=== PATIENT | male | born 1955 | race Caucasian/White ===

== ENCOUNTER 2020-10-14 08:15 | Outpatient (NON) | payer MEDICARE, SELFPAY ==
[2020-10-15 18:23] LABS: SARS-CoV-2 RNA PCR Positive
== END 2020-10-14 08:16 ==
PROVIDERS: Visit Provider Family Medicine
DX: U07.1 COVID-19 (principal)
CPT/HCPCS: 87635; C9803; U0003

== ENCOUNTER 2022-01-28 10:53 | Outpatient (CLI) | payer MEDICARE, SELFPAY ==
--- NOTE | ~2022-01-28 | XR_ITS ---
XR chest 2V DATE: 01/28/2022 11:11 INDICATION: Chest pain TECHNIQUE: PA and lateral views COMPARISON: None FINDINGS: Slight heart size is within normal range. Is aortic calcification and mild tortuosity. No h ilar or mediastinal enlargement. No pulmonary infiltrate or consolidation, pleural effusion or pulmonary vascular congestion or pneumo thorax. Degenerative spurring of the thoracic spine. IMPRESSION: No active cardiac pulmonary disease Aortic atherosclerosis Degenerative spurring of the thoracic spine Reviewed, dictated and finalized at location A. ERT PIANIST
== END 2022-01-28 10:54 | disposition home or self-care (01) ==
LOC: ANHIMG 10:59
PROVIDERS: PCP Family Medicine; Visit Provider Internal Medicine Cardiovascular Disease
DX: R07.9 Chest pain, unspecified (principal); R06.02 Shortness of breath; R07.89 Other chest pain; R94.31 Abnormal electrocardiogram [ECG] [EKG]; I70.0 Atherosclerosis of aorta; M77.8 Other enthesopathies, not elsewhere classified
CPT/HCPCS: 71046

== ENCOUNTER 2022-09-06 08:30 | Outpatient (RCR) | payer MEDICARE, SELFPAY ==
[2022-06-15 08:44] VITALS: BP 174/80; PULSE 78; O2SAT 97
[2022-06-15 09:21] VITALS: PULSE 75
== END 2022-09-06 10:29 | disposition home or self-care (01) ==
LOC: ANHCPREHAB 08:30
PROVIDERS: PCP Family Medicine; Visit Provider Internal Medicine Cardiovascular Disease
DX: Z95.1 Presence of aortocoronary bypass graft (principal)
CPT/HCPCS: 93798

== ENCOUNTER 2023-02-03 12:41 | Outpatient (NON) | payer MEDICARE, SELFPAY | END 2023-02-03 12:42 | disposition home or self-care (01) | LOC: ANHLAB 02-04 12:43 | PROVIDERS: PCP Family Medicine; Visit Provider Nurse Practitioner | DX: L82.1 Other seborrheic keratosis (principal) | CPT/HCPCS: 88305 ==

== ENCOUNTER 2023-02-28 13:48 | Outpatient (NON) | payer MEDICARE, SELFPAY | END 2023-02-28 13:49 | disposition home or self-care (01) | LOC: ANHLAB 13:48 | PROVIDERS: PCP Family Medicine; Visit Provider Nurse Practitioner | DX: C44.311 Basal cell carcinoma of skin of nose (principal) | CPT/HCPCS: 88305; 88331 ==

== ENCOUNTER 2023-05-12 08:20 | Outpatient (CLI) | payer MEDICARE, SELFPAY ==
--- NOTE | ~2023-05-12 | US_ITS ---
US art doppler w press LE BI INDICATION: Peripheral vascular disease. TECHNIQUE: Segmental pressures and plethysmographic and Doppler waveforms of the brachial and lower e xtremity arteries were obtained. COMPARISON: None. FINDINGS: Right and left brachial artery pressures of 151 mm Hg and 137 mm Hg, respectively, are concordant (no rmal difference <= 30 mmHg). The right ankle-brachial index (SHANEKA) is 0.64 (normal >= 0.9-1.0). The right great toe-brachial index (TBI) is 0.34 (normal >= 0.60). The left SHANEKA is 0.56. The left TBI is 0.26. IMPRESSION: 1. Diminished bilateral ankle and toe brachial indices, consistent with moderate peripheral arterial disease. Reviewed, dictated and finalized at location [] IMPRESSION: 1. Diminished bilateral ankle and toe brachial indices, consistent with moderat e peripheral arterial disease.
== END 2023-05-12 08:21 | disposition home or self-care (01) ==
PROVIDERS: PCP Family Medicine; Visit Provider Family Medicine
DX: I73.9 Peripheral vascular disease, unspecified (principal)
CPT/HCPCS: 93923

== ENCOUNTER 2025-06-15 15:37 | Emergency (ER) | payer MEDICARE, SELFPAY ==
--- OUTSIDE RECORDS SUMMARY | 2025-06-15 15:39 | XMS_ITS | Clinical Summary ---
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
--- OUTSIDE RECORDS SUMMARY | 2025-06-15 15:39 | XMS_ITS | Encounter Summary ---
Author Organization [facility] Address 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
--- OUTSIDE RECORDS SUMMARY | 2025-06-15 15:39 | XMS_ITS | Continuity of Care Document ---
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 Role Phone Moses Ruiz MD Unavailable Unavailable Allergies, Adverse Reactions, Alerts Substance Reaction Status Criticality No Known Allergies Active No Inform ation Medications Medication Instructions Dosage Effective Dates (start - stop) Status Comments TAMSULOSIN 0.4MG CAPSULES TAKE ONE CAPSULE BY MOUTH EVERY DAY - Active omeprazole 20 mg capsule,delayed release take 1 capsule by oral route every day before a meal 20 MG - Active amlodipine 5 mg tablet TAKE 1 TABLET BY MOUTH EVERY DAY - Active furosemide 80 mg tablet take 1 tablet by oral route every day 80 MG - Active allopurinol 100 mg tablet take 1 tablet by oral route every day 100 MG - Active glimepiride 1 mg tablet take 1 tablet by oral route every day 1 MG - Active Dialyvite 800-Ultra D 0.8 mg-2,000 unit tablet take 1 tablet after dialysis - Active sevelamer carbonate 800 mg tablet take 2 tablet by oral route 3 times every day with food 1600 MG - Active levothyroxine 50 mcg tablet take 1 tablet by oral route every day 50 MCG - Active metoprolol tartrate 25 mg tablet take 1 tablet by oral route 2 times every day 25 MG - Active Toujeo SoloStar 300 unit/mL (1.5 mL) subcutaneous insulin pen inject by subcutaneous route as per insulin protocol 0.00 - Active Procedures Procedure Date Subsequent Hospital Care Subsequent Hospital Care Initial Hospital Care ESRD Srvcs, 4+ Visits; >20 YO 4 ESRD Srvcs, 4+ Visits; >20 YO 3 ESRD Srvcs, 4+ Visits; >20 YO 3 ESRD Srvcs, 4+ Visits; >20 YO 3 ESRD Srvcs, 4+ Visits; >20 YO 3 TRANS CARE MGMT 7 DAY DISCH Initial Hospital Care ESRD Srvcs, 4+ Visits; >20 YO 3 ESRD Srvcs, 4+ Visits; >20 YO 3 ESRD Srvcs, 4+ Visits; >20 YO 3 ESRD Srvcs, 4+ Visits; >20 YO 3 ESRD Srvcs, 4+ Visits; >20 YO 3 ESRD Srvcs, 4+ Visits; >20 YO 3 ESRD Srvcs, 2-3 Visits; >20 YO 23 ESRD Srvcs, 4+ Visits; >20 YO 3 ESRD Srvcs, 4+ Visits; >20 YO 2 ESRD Srvcs, 4+ Visits; >20 YO 2 ESRD Srvcs, 4+ Visits; >20 YO 2 ESRD Srvcs, 4+ Visits; >20 YO 2 ESRD Srvcs, 4+ Visits; >20 YO 2 ESRD Srvcs, 4+ Visits; >20 YO 2 ESRD Srvcs, 4+ Visits; >20 YO 2 ESRD Srvcs, 4+ Visits; >20 YO 2 ESRD Srvcs, 4+ Visits; >20 YO 2 ESRD Srvcs, 4+ Visits; >20 YO 2 ESRD Srvcs, 4+ Visits; >20 YO 2 Initial Hospital Care ESRD Srvcs, 4+ Visits; >20 YO 2 ESRD Srvcs, 4+ Visits; >20 YO 1 ESRD Srvcs, 4+ Visits; >20 YO 1 ESRD Srvcs, 4+ Visits; >20 YO 1 ESRD Srvcs, 4+ Visits; >20 YO 1 ESRD Srvcs, 4+ Visits; >20 YO 1 ESRD Srvcs, 4+ Visits; >20 YO 1 ESRD Srvcs, 4+ Visits; >20 YO 1 ESRD Srvcs, 4+ Visits; >20 YO 1 ESRD Srvcs, 4+ Visits; >20 YO 1 ESRD Srvcs, 4+ Visits; >20 YO 1 ESRD Srvcs, 4+ Visits; >20 YO 1 ESRD Srvcs, 4+ Visits; >20 YO 1 ESRD Srvcs, 4+ Visits; >20 YO 0 ESRD Srvcs, 4+ Visits; >20 YO 0 ESRD Srvcs, 4+ Visits; >20 YO 0 ESRD Srvcs, 2-3 Visits; >20 YO 20 ESRD Srvcs, 4+ Visits; >20 YO 0 Initial Hospital Care Subsequent Hospital Care Subsequent Hospital Care No Charge ESRD Srvcs/PD, Mnthly; >20 YO 0 ESRD Srvcs, 2-3 Visits; >20 YO 20 ESRD Srvcs, 4+ Visits; >20 YO 0 ESRD Srvcs, 4+ Visits; >20 YO 0 ESRD Srvcs, 4+ Visits; >20 YO 0 ESRD Srvcs, 4+ Visits; >20 YO 0 Initial Hospital Care Subsequent Hospital Care ESRD Srvcs, 1 Visit; >20 YO Office/outpatient Visit, Est Office/outpatient Visit, Est Office/outpatient Visit, Est Office/outpatient Visit, Est Office/outpatient Visit, Est Office/outpatient Visit, Est Office/outpatient Visit, Est Office/outpatient Visit, Est Office/outpatient Visit, Est Subsequent Hospital Care Initial Hospital Care Office/outpatient Visit, Est Office Consultation Office/outpatient Visit, Est Office/outpatient Visit, Est Office/outpatient Visit, Est Office/outpatient Visit, Est Office/outpatient Visit, Est Office/outpatient Visit, Est Office/outpatient Visit, Est Office/outpatient Visit, Est Office/outpatient Visit, Est Office/outpatient Visit, Est Office/outpatient Visit, Est Office/outpatient Visit, Est Office/outpatient Visit, Est Office/outpatient Visit, Est Office/outpatient Visit, Est Advance Directives Directive Yes / No Effective Date File Name No Information Encounters Encounter Description Practice Location Reason(s) For Visit Diagnoses Date Provider Providers Copied on Encounter Subsequent [facility], [address] [place] [address], [address], tel:[phone] [facility] Acute kidney failure, unspecifiedChron ic kidney disease, stage 4 (severe)Type 2 diabetes mellitus with diabetic chronic kidney diseaseImmunodef iciency, unspecifiedEncou nter for aftercare following kidney transplantOther recurrent and persistent immunoglobulin A nephropathy Jul- 4 Sara DEUTSCH Moses. [address] [facility], [address], [place], [id number], [place]. tel:[phone] Subsequent [facility], [address] [place] [address], [address], tel:[phone] [facility] Chronic kidney disease, stage 4 (severe)Type 2 diabetes mellitus with diabetic chronic kidney diseaseKidney transplant statusImmunodefi ciency, unspecifiedOther recurrent and persistent immunoglobulin A nephropathyAcute kidney failure, unspecified Sep-2 4 Sara Lopes. [address] [facility], [address] [place] [address], [id number], [place]. tel:[phone] [facility] Care [facility], [address] [place], [address], tel:[phone] [facility] Acute kidney failure, unspecifiedChron ic kidney disease, stage 4 (severe)Type 2 diabetes mellitus with diabetic chronic kidney diseaseImmunodef iciency, unspecifiedEncou nter for aftercare following kidney transplantOther recurrent and persistent immunoglobulin A nephropathy Sep-2 4 Sara Lopes. [address] [place] [address], [address] [place] [address], [id number], [place]. tel:[phone] [facility], [address] [place] [address], [address], tel:[phone] [facility] Other disorders of phosphorus metabolismEnd stage renal diseaseDependenc e on renal dialysis 4 Sara Lopes. [address] [place] [address], [address], [id number], [place]. tel:[phone] [facility], [address] [place] [address], [address], tel:[phone] [facility] Other disorders of phosphorus metabolismEnd stage renal diseaseDependenc e on renal dialysis 3 Suzanne Leet. [address], [place], [place], [id number], [place]. tel:[phone] [facility], [address] [place] [address], [address], tel:[phone] [facility] Other disorders of phosphorus metabolismEnd stage renal diseaseDependenc e on renal dialysis 3 Sara Lopes. [address] [facility], [address] [place] [address], [id number], [place]. tel:[phone] [facility], [address] [place] [address], [address] [place] [address] tel:[phone] [facility] Other disorders of phosphorus metabolismEnd stage renal diseaseDependenc e on renal dialysis 3 Suzanne Tracy. [address] [place], [id number], [place]. tel:[phone] [facility], [address] [place] [address], [facility], tel:[phone] [facility] Other disorders of phosphorus metabolismEnd stage renal diseaseDependenc e on renal dialysis 3 Sara Lopes. [address] [place] [address], [address] [place] [address], [id number], [place]. tel:[phone] [facility] 7 DAY [facility], [address] [place] [address], [facility], tel:[phone] [facility] No Information 3 Josue Garcia. [address] [facility], [place], [place], [id number], [place]. tel:[phone] [facility], [address] [place] [address], [facility], tel:[phone] [facility] End stage renal diseaseHypertens shawn chronic kidney disease with stage 5 chronic kidney disease or end stage renal diseaseType 2 diabetes mellitus with diabetic chronic kidney diseaseOther disorders of phosphorus metabolismDepend ence on renal dialysis 3 Sara Lopes. [address] [facility], [address], [place], [place], [id number], [place]. tel:[phone] [facility], [address] [place] [address], [facility], tel:[phone] [facility] Other disorders of phosphorus metabolismEnd stage renal diseaseDependenc e on renal dialysis 3 Suzanne Tracy. [address] [place], [id number], [place]. tel:[phone] [facility], [address] [place] [address], [facility], tel:[phone] [facility] End stage renal diseaseDependenc e on renal dialysis 3 Sara Lopes. [address] [place] [address], [address], [id number], . tel:[phone] [facility], [address] [place] [address], [facility], tel:[phone] [facility] End stage renal diseaseDependenc e on renal dialysis 3 Sara Lopes. [address] [place] [address], [address], [id number], . tel:[phone] [facility], [address] [place] [address], [facility], tel:[phone] [facility] End stage renal diseaseDependenc e on renal dialysis 3 Suzanne Tracy. [address] [place], [place], [id number], [place]. tel:[phone] [facility], [address] [place] [address], [facility], tel:[phone] [facility] End stage renal diseaseDependenc e on renal dialysis 3 Sara Lopes. [address] [place] [address], [address], [id number], . tel:[phone] [facility], [address] [place] [address], [facility], tel:[phone] [facility] No Information 3 Suzanne Wu [address] [place], [place], [id number], [place]. tel:[phone] [facility], [address] [place] [address], [facility], tel:[phone] [facility] End stage renal diseaseDependenc e on renal dialysis 3 Suzanne Tracy. [address] [place], [place], [id number], . tel:[phone] [facility], [address] [place] [address], [facility], tel:[phone] [facility] End stage renal diseaseDependenc e on renal dialysis 3 Abby White. [address] [place], [place], [id number], . tel:[phone] [facility], [address] [place] [address], [address] [place] [address] tel:[phone] [facility] End stage renal diseaseDependenc e on renal dialysis 3 Sara Lopes. [address] [place] [address], [address], [id number], . tel:[phone] [facility], [address] [place] [address], [facility], tel:[phone] [facility] End stage renal diseaseDependenc e on renal dialysis 2 Abby White. [address] [place], [place], [id number], . tel:[phone] [facility], [address] [place] [address], [facility], tel:[phone] [facility] End stage renal diseaseDependenc e on renal dialysis 2 Suzanne Tracy. [address] [place], [place], [id number], . tel:[phone] [facility], [address] [place] [address], [facility], tel:[phone] [facility] End stage renal diseaseDependenc e on renal dialysis 2 Abby Watt [address], [place], [place], [id number], [place]. tel:[phone] [facility], [address] [place] [address], [address], tel:[phone] [facility] End stage renal diseaseDependenc e on renal dialysis 2 Suzanne Wu [address] [place] [place], [id number], [place]. tel:[phone] [facility], [address] [place] [address], [address], tel:[phone] [facility] End stage renal diseaseDependenc e on renal dialysis 2 Abby White. [address], [place], [place], [id number], [place]. tel:[phone] [facility], [address] [place] [address], [address], tel:[phone] [facility] End stage renal diseaseDependenc e on renal dialysis 2 Suzanne Wu [address] [place], [address], [place]. tel:[phone] [facility], [address] [place] [address], [address], tel:[phone] [facility] End stage renal diseaseDependenc e on renal dialysis 2 Abby White. [address], [place], [place], [id number], [place]. tel:[phone] [facility], [address] [place] [address], [address], tel:[phone] [facility] End stage renal diseaseDependenc e on renal dialysis 2 Suzanne Wu [address] [place], [id number], [place]. [phone] [facility], [address] [place] [address], [address], tel:[phone] [facility] End stage renal diseaseDependenc e on renal dialysis 2 Abby Watt [address], [facility], [place], [place], [id number], [place]. tel:[phone] [facility], [address] [place] [address], [address], tel:[phone] [facility] End stage renal diseaseDependenc e on renal dialysis 2 Suzanne Wu [address] [place], [id number], [place]. tel:[phone] [facility], [address] [place] [address], [address], tel:[phone] [facility] End stage renal diseaseDependenc e on renal dialysis 2 Abby White. [address], [place], [place], [id number], [place]. tel:[phone] [facility], [address] [place] [address], [address], [phone] [facility] End stage renal diseaseType 2 diabetes mellitus with diabetic chronic kidney diseaseDependenc e on renal dialysisEssentia l (primary) hypertensionShor tness of breath 2 Suzanne Wu [address], [place], [id number], [place]. [phone] [facility], [address] [place] [address], [address], [place] tel:[phone] [facility] End stage renal diseaseDependenc e on renal dialysis 2 Suzanne Wu [address] [place], [address], [place]. tel:[phone] [facility], [address] [place] [address], [address], [place] [phone] [facility] End stage renal diseaseDependenc e on renal dialysis 1 Abby Watt [address], [place], [place], [id number], [place]. tel: [facility], [address] [place] [address], [address], [place] tel: [phone] [facility] End stage renal diseaseDependenc e on renal dialysis 1 Abby Watt [address], [place], [place], [id number], [place]. tel: [facility], [address] [place] [address], [address], tel: [phone] [facility] End stage renal diseaseDependenc e on renal dialysis 1 Suzanne Wu [address] [place], [id number], [place]. tel: [facility], [address] [place] [address], [address], tel:[phone] [facility] End stage renal diseaseDependenc e on renal dialysis 1 Abby White. [address], [place], [place], [id number], [place]. tel: [facility], [address] [place] [address], [address], [place] tel:[phone] [facility] End stage renal diseaseDependenc e on renal dialysis 1 Suzanne Wu [address] [place], [address], [place]. tel: [facility], [address] [place] [address], [address], [place] tel:[phone] [facility] End stage renal diseaseDependenc e on renal dialysis 1 Abby White. [address] [place], [id number], . tel:[phone] [facility], [address] [place] [address], [address], tel:[phone] [facility] End stage renal diseaseDependenc e on renal dialysis 1 Suzanne Wu [address] [place], [id number], [place]. tel:[phone] [facility], [address] [place] [address], [address], tel:[phone] [facility] End stage renal diseaseDependenc e on renal dialysis 1 Abby White. [address] [place], [id number], [place]. tel:[phone] [facility], [address] [place] [address], [address], tel:[phone] [facility] End stage renal diseaseDependenc e on renal dialysis 1 Suzanne Wu [address] [place], [id number], [place]. tel:[phone] [facility], [address], [address], tel:[phone] [facility] End stage renal diseaseDependenc e on renal dialysis 1 Abby Watt [address] [place], [address], [place]. tel:[phone] [facility], [address] [place] [address], [address], tel:[phone] [facility] End stage renal diseaseDependenc e on renal dialysis 1 Suzanne Wu [address], [place], [address], [place]. tel:[phone] [facility], Former[facility] [address] [place] [address], [address], tel:[phone] [facility] End stage renal diseaseDependenc e on renal dialysis 0 1 Abby White. [address] [facility] [place], [id number], [place]. tel:[phone] [facility], [facility] [address] [place] [address], [address], [place] tel:[phone] [facility] End stage renal diseaseDependenc e on renal dialysis 0 Suzanne Tracy. [address] [place], [address], [place]. tel:[phone] [facility], [address] [place] [address], [address], tel:[phone] [facility] End stage renal diseaseDependenc e on renal dialysis 0 Abby White. [address], [place], [place], [id number], [place]. tel:[phone] [facility], [address] [place] [address], [address], tel:[phone] [facility] End stage renal diseaseDependenc e on renal dialysis Aug- 0 Suzanne Wu [address] [place], [id number], [place]. tel:[phone] [facility], [address] [place] [address], [address], [place] tel:[phone] [facility] End stage renal diseaseDependenc e on renal dialysis Sep-0 0 Abby Watt [address], [place], [place], [id number], [place]. tel:[phone] [facility], [address], [place], [address], [place] tel:[phone] [facility] End stage renal diseaseDependenc e on renal dialysis 0 Suzanne Tracy. [address] [facility], [place], [id number], [place]. tel:[phone] Initial Hospital Care [facility], [address], [place], [address], [place] tel:[phone] [facility] End stage renal diseaseEssential (primary) hypertensionDiar daphne, unspecifiedShort ness of breathDependence on renal dialysis 0 Connie John. [address], [address], [place], [address], [place]. tel:[phone] Referring Provider: Arlen Oshea, [address] [place] [address] [address], [place], [place], [id number]. tel:[phone] Subsequent [facility], [address] [place], [address], [place] tel:[phone] [facility] End stage renal diseaseEssential (primary) hypertensionDepe ndence on renal dialysis 0 Connie John. [address], [address], [place], [address], [place]. tel:[phone] Referring Provider: Arlen Oshea, [address] [place] [address] Drive [address], [place], [place], [id number]. tel:[phone] Subsequent [facility], [address] [place], [place], [address], [place] tel:[phone] [facility] End stage renal diseaseEssential (primary) hypertensionDiar daphne, unspecifiedShort ness of breathDependence on renal dialysis 0 Connie John. [address], [address], [place], [address], [place]. tel:[phone] Referring Provider: Arlen Oshea, [address], [place], [place], [id number]. tel:[phone] [facility], Formerly named [facility] [address] [place] [address], [address], tel:[phone] [facility] Follow Up of ESRD (chief complaint) Type 2 diabetes mellitus w diabetic chronic kidney diseaseEnd stage renal disease 0 Suzanne Wu [address], [place], [id number], [place]. tel:[phone] [facility], [address] [place] [address], [address], tel:[phone] [facility] End stage renal diseaseDependenc e on renal dialysis 0 Suzanne Wu [address] [place], [address], [place]. tel:[phone] [facility], [address] [place] [address], [address], [place] tel:[phone] [facility] End stage renal diseaseDependenc e on renal dialysis 0 Abby Watt [address], [facility], [place], [address], [place]. tel:[phone] [facility], [address] [place] [address], [address], tel:[phone] [facility] End stage renal diseaseDependenc e on renal dialysis 0 Suzanne Wu [address] [place], [address], [place]. tel:[phone] [facility], Formerly named [facility] [address] [place] [address], [address], tel:[phone] [facility] End stage renal diseaseDependenc e on renal dialysis 0 Abby Watt [address], [address], [place], [place], [address], [place]. tel:[phone] [facility], [address] [place] [address], [address], tel:[phone] [facility] End stage renal diseaseDependenc e on renal dialysis 0 Suzanne Wu [address], [place], [address], [place]. tel:[phone] [facility], [address] [place] [address], [address], tel:[phone] [facility] End stage renal diseaseDependenc e on renal dialysis 0 Abby White. [address] [facility], [facility], [place], [address], [place]. tel:[phone] [facility], [address] [place] [address], [address], tel:[phone] [facility] End stage renal diseaseType 2 diabetes mellitus w diabetic chronic kidney diseaseEssential (primary) hypertensionGout due to renal impairment, right elbowGout due to renal impairment, right wristDependence on renal dialysis 0 Suzanne Wu [address], [place], [id number], [place]. tel:[phone] [facility], [address] [place] [address], [address], tel:[phone] [facility] End stage renal diseaseGout due to renal impairment, right elbowGout due to renal impairment, right wristType 2 diabetes mellitus w diabetic chronic kidney diseaseEssential (primary) hypertensionDepe ndence on renal dialysis 0 Suzanne Wu [address], [place], [address], [place]. tel:[phone] [facility], [address] [place] [address], [address], tel:[phone] [facility] End stage renal diseaseDependenc e on renal dialysis 0 Abby White. [address] [facility], [place], [place], [id number], [place]. [phone] Office/outpat ient Visit, [facility], [address], [facility], tel:[phone] [facility] Chronic Kidney Disease (chief complaint) Hypertensi on (chief complaint) Chronic kidney disease, stage 4 (severe)Fluid overload, unspecifiedHyper kalemiaNeuromusc ular dysfunction of bladder, unspecifiedEssen tial (primary) hypertension 0 Mari Walton. [address] [place] [address], [id number], [place]. [phone] [facility], [address] [place] [address], [facility], tel:[phone] [facility] Chronic kidney disease, stage 4 (severe)Fluid overload, unspecifiedHyper kalemiaNeuromusc ular dysfunction of bladder, unspecifiedEssen tial (primary) hypertension 0 Mari Walton. [address] [place] [address], [id number], [place]. tel:[phone] [facility], [address] [place] [address], [address], tel:[phone] [facility] Chronic kidney disease, stage 4 (severe)Fluid overload, unspecifiedHyper kalemiaNeuromusc ular dysfunction of bladder, unspecifiedEssen tial (primary) hypertension 9 Mari Walton. [facility], [address], [id number], [place]. [phone] Office/outpat ient Visit, [facility], [address] [place] [address], [facility], tel:[phone] [facility] Chronic Kidney Disease (chief complaint) Hypertensi on (chief complaint) Chronic kidney disease, stage 4 (severe)Fluid overload, unspecifiedHyper kalemiaNeuromusc ular dysfunction of bladder, unspecifiedEssen tial (primary) hypertension 9 Mari Walton. [address] [facility], [address] [place] [address], [id number], [place]. tel:[phone] Office/outpat ient Visit, [facility], [address] [place] [address], [address], tel:[phone] [facility] Chronic Kidney Disease (chief complaint) Hypertensi on (chief complaint) Chronic kidney disease, stage 4 (severe)Fluid overload, unspecifiedHyper kalemiaNeuromusc ular dysfunction of bladder, unspecifiedEssen tial (primary) hypertension 9 Mari Walton. [address] [facility], [address] [place] [address], [id number], [place]. tel:[phone] Office/outpat ient Visit, [facility], [address] [place] [address], [address], tel:[phone] [facility] Chronic Kidney Disease (chief complaint) Hypertensi on (chief complaint) Chronic kidney disease, stage 4 (severe)Fluid overload, unspecifiedHyper kalemiaNeuromusc ular dysfunction of bladder, unspecifiedEssen tial (primary) hypertension 9 Mari Walton. [address] [facility], [address] [place] [address], [id number], [place]. [phone] Office/outpat ient Visit, [facility], [address] [place] [address], [address], tel:[phone] [facility] Chronic Kidney Disease (chief complaint) Hypertensi on (chief complaint) Chronic kidney disease, stage 4 (severe)Fluid overload, unspecifiedHyper kalemiaNeuromusc ular dysfunction of bladder, unspecifiedEssen tial (primary) hypertension 9 Mari Walton. [address] [facility], [address], [id number], [place]. tel:[phone] [facility], [address] [place] [address], [facility], tel:[phone] [facility] Chronic kidney disease, stage 4 (severe)Fluid overload, unspecifiedHyper kalemiaNeuromusc ular dysfunction of bladder, unspecifiedEssen tial (primary) hypertension 9 Mari Walton. [address] [facility], [address] [place] [address], [id number], [place]. tel:[phone] [facility], [address], [facility], tel:[phone] [facility] Chronic kidney disease, stage 4 (severe)Fluid overload, unspecifiedHyper kalemiaNeuromusc ular dysfunction of bladder, unspecifiedEssen tial (primary) hypertension 9 Mari Walton. [address] [facility], [address] [place] [address], [id number], [place]. tel:[phone] Office/outpat ient Visit, [facility], [address], [facility], tel:[phone] [facility] Chronic Kidney Disease (chief complaint) Hypertensi on (chief complaint) Chronic kidney disease, stage 4 (severe)Fluid overload, unspecifiedHyper kalemiaNeuromusc ular dysfunction of bladder, unspecifiedEssen tial (primary) hypertension 9 Mari Walton. [address] [facility], [address], [id number], [place]. tel:[phone] [facility], [address], [facility], tel: [phone] [facility] Chronic kidney disease, stage 4 (severe)Fluid overload, unspecifiedHyper kalemiaNeuromusc ular dysfunction of bladder, unspecifiedEssen tial (primary) hypertension 9 Mari Walton. [address] [facility], [address], [id number], [place]. tel:[phone] Office/outpat ient Visit, [facility], [address] [place] [address], [address], tel:[phone] [facility] Chronic Kidney Disease (chief complaint) Hypertensi on (chief complaint) Fluid overload, unspecifiedHyper kalemiaNeuromusc ular dysfunction of bladder, unspecifiedEssen tial (primary) hypertensionChro marisa kidney disease, stage 4 (severe) 9 Mari Walton. [address] [facility], [address] [place] [address], [id number], [place]. tel:[phone] Office/outpat ient Visit, [facility], [address], [address], tel:[phone] [facility] Chronic Kidney Disease (chief complaint) Hypertensi on (chief complaint) Chronic kidney disease, stage 3 (moderate)Fluid overload, unspecifiedHyper kalemiaNeuromusc ular dysfunction of bladder, unspecifiedEssen tial (primary) hypertension 9 Mari Walton. [address] [facility], [address], [id number], [place]. tel:[phone] [facility], [address], [address], tel:[phone] [facility] No Information 9 Mari Walton. [address] [facility], [address] [place] [address], [id number], [place]. tel:[phone] [facility], [address], [address], [place] tel:[phone] [facility] Chronic kidney disease, stage 3 (moderate)Fluid overload, unspecifiedHyper kalemiaNeuromusc ular dysfunction of bladder, unspecifiedEssen tial (primary) hypertension 9 Mari Walton. [address] [facility], [address] [place] [address], [id number], [place]. tel:[phone] Office/outpat ient Visit, [facility], [address] [place] [address], [address], tel:[phone] [facility] Chronic Kidney Disease (chief complaint) Hypertensi on (chief complaint) Chronic kidney disease, stage 3 (moderate)Fluid overload, unspecifiedHyper kalemiaNeuromusc ular dysfunction of bladder, unspecifiedEssen tial (primary) hypertension 8 Mari Walton. [address] [facility], [address] [place] [address], [id number], [place]. tel:[phone] Subsequent [facility], [address] [place] [address], [address], tel:[phone] [facility] Chronic kidney disease, stage 4 (severe)Acute kidney failure, unspecified 8 Angelica Boykin [address] [facility], [address], [id number], [place]. tel:[phone] Referring Provider: Arlen Oshea, [address], [place], [place], [id number]. tel:[phone] Initial [facility], [address] [place] [address], [address], [phone] [facility] Chronic kidney disease, stage 4 (severe)Acute kidney failure, unspecified 8 Angelica Boykin [address] [facility], [address] [place] [address], [id number], [place]. tel:[phone] Referring Provider: Arlen Oshea, [address], [place], [place], [id number]. tel:[phone] [facility], [address] [place] [address], [address], [place] tel:[phone] [facility] Chronic kidney disease, stage 3 (moderate)Fluid overload, unspecifiedHyper kalemiaNeuromusc ular dysfunction of bladder, unspecifiedEssen tial (primary) hypertension 8 Mari Walton. [address] [facility], [address], [place], [place], [id number], [place]. tel:[phone] Office/outpat ient Visit, [facility], [address] [place] [address], [address], [place] tel:[phone] [facility] Athscl heart disease of ewiiaapaayp coronary artery w/o ang pctrsAcidosisTyp e 2 diabetes mellitus w diabetic chronic kidney diseaseChronic kidney disease, stage 4 (severe)Essentia l (primary) hypertensionEdem a, unspecified 8 Suzanne Tracy. [address], [place], [id number], [place]. tel:[phone] Office Consultation [facility], [address] [place] [address], [address], [place] tel:[phone] 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 [address], [place], [id number], [place]. tel:[phone] Office/outpat ient Visit, [facility], [address] [place] [address], [place], [address], [place] tel:[phone] [facility] Chronic Kidney Disease (chief complaint) Hypertensi on (chief complaint) Chronic kidney disease, stage 3 (moderate)Fluid overload, unspecifiedHyper kalemiaNeuromusc ular dysfunction of bladder, unspecifiedEssen tial (primary) hypertension 8 Mari Walton. [address] [facility], [address], [id number], . tel:[phone] [facility], [address] [place] [address], [facility], tel: [phone] [facility] Chronic kidney disease, stage 3 (moderate)Fluid overload, unspecifiedHyper kalemiaNeuromusc ular dysfunction of bladder, unspecifiedEssen tial (primary) hypertension 8 Mari Walton. [address] [facility], [address], [address] [place] [address], . tel:[phone] [facility], [address] [place] [address], [facility], tel:[phone] [facility] Chronic kidney disease, stage 3 (moderate)Fluid overload, unspecifiedHyper kalemiaNeuromusc ular dysfunction of bladder, unspecifiedEssen tial (primary) hypertension 8 Mari Walton. [facility]0 [facility], [address], [id number], . tel:[phone] Office/outpat ient Visit, [facility], [address], [facility], tel:[phone] [facility] Chronic Kidney Disease (chief complaint) Hypertensi on (chief complaint) Chronic kidney disease, stage 3 (moderate)Fluid overload, unspecifiedHyper kalemiaNeuromusc ular dysfunction of bladder, unspecifiedEssen tial (primary) hypertension 8 Mari Walton. [address] [facility], [address] [place] [address], [id number], . tel:[phone] [facility], [address], [address], tel:[phone] [place] [facility] Chronic kidney disease, stage 3 (moderate)Fluid overload, unspecifiedHyper kalemiaNeuromusc ular dysfunction of bladder, unspecifiedEssen tial (primary) hypertension 8 Mari Walton. [address] [facility], [address] [place] [address], [id number], [place]. [phone] [facility], [address], [address], tel:[phone] [place] [facility] Chronic kidney disease, stage 3 (moderate)Fluid overload, unspecifiedHyper kalemiaNeuromusc ular dysfunction of bladder, unspecifiedEssen tial (primary) hypertension 8 Mari Walton. [address] [facility], [address], [id number], [place]. tel:[phone] Office/outpat ient Visit, [facility], [address], [address], tel:[phone] [facility] Chronic Kidney Disease (chief complaint) Hypertensi on (chief complaint) Chronic kidney disease, stage 3 (moderate)Fluid overload, unspecifiedHyper kalemiaNeuromusc ular dysfunction of bladder, unspecifiedEssen tial (primary) hypertension 8 Mari Walton. [address] [facility], [address] [place] [address], [id number], [place]. [phone] Office/outpat ient Visit, [facility], [address], [address], tel:[phone] [facility] Chronic Kidney Disease (chief complaint) Hypertensi on (chief complaint) Chronic kidney disease, stage 3 (moderate)Fluid overload, unspecifiedHyper kalemiaNeuromusc ular dysfunction of bladder, unspecifiedEssen tial (primary) hypertension 8 Mari Walton. [address] [facility], [address] [place] [address], [id number], [place]. tel:[phone] Office/outpat ient Visit, [facility], [address], [facility], tel:[phone] [facility] Chronic Kidney Disease (chief complaint) Hypertensi on (chief complaint) Chronic kidney disease, stage 3 (moderate)Fluid overload, unspecifiedHyper kalemiaNeuromusc ular dysfunction of bladder, unspecifiedEssen tial (primary) hypertension 7 Mari Walton. [address] [facility], [address] [place] [address], [id number], [place]. tel:[phone] [facility], [address] [place] [address], [facility], tel:[phone] [facility] Chronic kidney disease, stage 3 (moderate)Fluid overload, unspecifiedHyper kalemiaNeuromusc ular dysfunction of bladder, unspecifiedEssen tial (primary) hypertension 7 Mari Walton. [address] [facility], [address] [place] [address], [id number], [place]. tel:[phone] Office/outpat ient Visit, [facility], [address] [place] [address], [facility], tel:[phone] [facility] Chronic Kidney Disease (chief complaint) Hypertensi on (chief complaint) Chronic kidney disease, stage 3 (moderate)Fluid overload, unspecifiedHyper kalemiaNeuromusc ular dysfunction of bladder, unspecifiedEssen tial (primary) hypertension 7 Mari Walton. [address] [facility], [address], [place], [id number], . tel:[phone] Office/outpat ient Visit, [facility], [address] [place] [address], [address], tel:[phone] [facility] Chronic Kidney Disease (chief complaint) Hypertensi on (chief complaint) Chronic kidney disease, stage 3 (moderate)Fluid overload, unspecifiedHyper kalemiaNeuromusc ular dysfunction of bladder, unspecifiedEssen tial (primary) hypertension 7 Mari Walton. [address] [facility], [address], [id number], [place]. tel:[phone] Office/outpat ient Visit, [facility], [address] [place] [address], [facility], tel:[phone] [facility] Chronic Kidney Disease (chief complaint) Hypertensi on (chief complaint) Chronic kidney disease, stage 3 (moderate)Fluid overload, unspecifiedHyper kalemiaNeuromusc ular dysfunction of bladder, unspecifiedEssen tial (primary) hypertension 6 Mari Walton. [address] [facility], [address] [place] [address], [id number], [place]. tel:[phone] [facility], [address] [place] [address], [address], [place] tel:[phone] [facility] Chronic kidney disease, stage 3 (moderate)Fluid overload, unspecifiedHyper kalemiaNeuromusc ular dysfunction of bladder, unspecifiedEssen tial (primary) hypertension 6 Mari Walton. [address] [facility], [address], [place], [id number], [place]. tel:[phone] [facility], [address] [place] [address], [facility], [place] tel:[phone] [facility] Chronic kidney disease, stage 3 (moderate)Fluid overload, unspecifiedHyper kalemiaNeuromusc ular dysfunction of bladder, unspecifiedEssen tial (primary) hypertension 6 Mari Walton. [address] [facility], [address], [id number], [place]. tel:[phone] [facility], [address] [place] [address], [address], [place] tel: [phone] [facility] Chronic kidney disease, stage 3 (moderate)Fluid overload, unspecifiedHyper kalemiaNeuromusc ular dysfunction of bladder, unspecifiedEssen tial (primary) hypertension 6 Mari Walton. [address] [facility], [address] [place] [address], [id number], [place]. tel:[phone] Office/outpat ient Visit, [facility], [address] [place] [address], [facility], tel: [phone] [facility] Chronic Kidney Disease (chief complaint) Hypertensi on (chief complaint) Chronic kidney disease, stage 3 (moderate)Fluid overload, unspecifiedHyper kalemiaNeuromusc ular dysfunction of bladder, unspecifiedEssen tial (primary) hypertension 6 Mari Walton. [address] [facility], [address], [id number], [place]. tel:[phone] Office/outpat ient Visit, [facility], [address] [place] [address], [facility], tel:[phone] [facility] Chronic Kidney Disease (chief complaint) Hypertensi on (chief complaint) Chronic kidney disease, stage 3 (moderate)Fluid overload, unspecifiedHyper kalemiaNeuromusc ular dysfunction of bladder, unspecifiedEssen tial (primary) hypertension 6 Mari Walton. [address] [facility], [address], [place], [id number], [place]. tel:[phone] Office/outpat ient Visit, [facility], [address] [place] [address], [address], [place] tel:[phone] [facility] Chronic Kidney Disease (chief complaint) Hypertensi on (chief complaint) Chronic kidney disease, stage 3 (moderate)Fluid overload, unspecifiedHyper kalemiaNeuromusc ular dysfunction of bladder, unspecifiedEssen tial (primary) hypertension 2- 5 Mari Walton. [facility], [address], [id number], [place]. [phone] [facility], [address] [place] [address], [address], [phone] [facility] Chronic kidney disease, stage 3 (moderate)Fluid overload, unspecifiedHyper kalemiaNeuromusc ular dysfunction of bladder, unspecifiedEssen tial (primary) hypertension 5 Mari Walton. [address] [place] [address], [address], [id number], [place]. [phone] [facility], [address] [place] [address], [address], tel:[phone] [facility] Chronic kidney disease, Stage III (moderate)Other fluid overloadHyperpot assemiaOther functional disorder of bladderUnspecifi ed essential hypertension 5 Mari Walton. [facility], [address], [id number], [place]. [phone] Office/outpat ient Visit, [facility], [address] [place] [address], [address], tel:[phone] [facility] Chronic Kidney Disease (chief complaint) Hypertensi on (chief complaint) Chronic kidney disease, Stage III (moderate)Other fluid overloadHyperpot assemiaOther functional disorder of bladderUnspecifi ed essential hypertension 5 Mari Walton. [facility], [address], [id number], [place]. tel:[phone] [facility], [address] [place] [address], [address], [place] tel:[phone] [facility] Chronic kidney disease, Stage III (moderate)Other fluid overloadHyperpot assemiaOther functional disorder of bladderUnspecifi ed essential hypertension 5 Mari Walton. [address] [facility], [address], [id number], [place]. tel:[phone] Office/outpat ient Visit, [facility], [address] [place] [address], [address], [place] tel:[phone] [facility] Chronic Kidney Disease (chief complaint) Hypertensi on (chief complaint) Chronic kidney disease, Stage III (moderate)Other fluid overloadHyperpot assemiaOther functional disorder of [facility]Un[facility] ed essential hypertension 4 Mari Walton. 17[address] [facility], [address], [id number], [place]. tel:[phone] Office/outpat ient Visit, [facility], [address] [place] [address], [address], tel:[phone] [facility] No Information 4 Mari Walton. [address] [facility], [address], [id number], [place]. tel:[phone] Family History Family Member Type Diagnosis Age At Onset No Information Payers Payer name Insurance type Covered republican ID Authoriza tion(s) Medicare [place] Primary [place] [id number] BS [facility] [id number] Social History Type Description Quantity Date Captured Comments Sex Male Smoking Status No Information Chief Complaint And Reason For Visit No Information Plan Of Treatment Date Type Action Status Patient Education Chronic Kidney Disease: After Your Vi~ completed Patient Education Chronic Kidney Disease: After Your Vi~ completed Patient Education Chronic Kidney Disease: After Your Vis completed Patient Education Low Sodium Diet (2,000 Milligram): Aft completed History Of Present Illness Encounter Date Complaint History Of Michel nt Illness Follow Up of ESRD Hypertension The symptoms beg an gradually. The severity has been described as being mild. Comorbid conditions include: chronic kidney disease. It is currently stable. Context/Risk factors include: age over age 60, high salt intake and male gender. Chronic Kidney Disease The riley nt's disease began gradually. The severity of symptoms due to the patient's CKD is currently rated moderate/10 (10=most severe). The patient's CKD is currently stable. Relevant disease context/risk factors include: age over 60, male gender and hypertension. Pertinent negatives include a lack of the following symptoms: dysuria, dyspnea, hematuria, nausea, pruritus, rash, urinary frequency and vomiting. Chronic Kidney Disease The riley nt's disease began gradually. The severity of symptoms due to the patient's CKD is currently rated moderate/10 (10=most severe). The patient's CKD is currently stable. Relevant disease context/risk factors include: age over 60, male gender and hypertension. Hypertension The symptoms beg an gradually. The severity has been described as being mild. Comorbid conditions include: chronic kidney disease. It is currently stable. Context/Risk factors include: age over age 60, high salt intake and male gender. Pertinent negatives include the lack of the following symptoms: chest pain, dyspnea, epistaxis, headache, hematuria and irregular heartbeat/palpitations. Hypertension The symptoms beg an gradually. The severity has been described as being mild. Comorbid conditions include: chronic kidney disease. It is currently stable. Context/Risk factors include: age over age 60, high salt intake and male gender. Pertinent negatives include the lack of the following symptoms: chest pain, dyspnea, epistaxis, headache, hematuria and irregular heartbeat/palpitations. Chronic Kidney Disease The patie nt's disease began gradually. The severity of symptoms due to the patient's CKD is currently rated moderate/10 (10=most severe). The patient's CKD is currently stable. Relevant disease context/risk factors include: age over 60, male gender and hypertension. Hypertension The symptoms beg an gradually. The severity has been described as being mild. Comorbid conditions include: chronic kidney disease. It is currently stable. Context/Risk factors include: age over age 60, high salt intake and male gender. Chronic Kidney Disease The patie nt's disease began gradually. The severity of symptoms due to the patient's CKD is currently rated moderate/10 (10=most severe). The patient's CKD is currently stable. Relevant disease context/risk factors include: age over 60, male gender and hypertension. Chronic Kidney Disease The patie nt's disease began gradually. The severity of symptoms due to the patient's CKD is currently rated moderate/10 (10=most severe). The patient's CKD is currently stable. Relevant disease context/risk factors include: age over 60, male gender and hypertension. Hypertension The symptoms beg an gradually. The severity has been described as being mild. Comorbid conditions include: chronic kidney disease. It is currently stable. Context/Risk factors include: age over age 60, high salt intake and male gender. Pertinent negatives include the lack of the following symptoms: chest pain, dyspnea, epistaxis, headache, hematuria and irregular heartbeat/palpitations. Hypertension The symptoms beg an gradually. The severity has been described as being mild. Comorbid conditions include: chronic kidney disease. It is currently stable. Context/Risk factors include: age over age 60, high salt intake and male gender. Chronic Kidney Disease The patie nt's disease began gradually. The severity of symptoms due to the patient's CKD is currently rated moderate/10 (10=most severe). The patient's CKD is currently stable. Relevant disease context/risk factors include: age over 60, male gender and hypertension. Pertinent negatives include a lack of the following symptoms: dysuria, dyspnea, fatigue, hematuria, nausea, pruritus, rash, urinary frequency, vomiting and weight loss. Chronic Kidney Disease The riley nt's disease began gradually. The severity of symptoms due to the patient's CKD is currently rated moderate/10 (10=most severe). The patient's CKD is currently stable. Relevant disease context/risk factors include: age over 60, male gender and hypertension. Pertinent negatives include a lack of the following symptoms: dysuria, dyspnea, hematuria, nausea, pruritus, rash, urinary frequency and vomiting. Hypertension The symptoms beg an gradually. The severity has been described as being mild. Comorbid conditions include: chronic kidney disease and chronic kidney disease. It is currently stable. Context/Risk factors include: age over age 60, high salt intake, male gender, age over age 60, high salt intake and male gender. Pertinent negatives include the lack of the following symptoms: Pertinent negatives include the lack of the following symptoms: chest pain dyspnea, epistaxis, headache, hematuria and irregular heartbeat/palpitations., chest pain, dyspnea, epistaxis, headache, hematuria and irregular heartbeat/palpitations. Chronic Kidney Disease The riley nt's disease began gradually. The severity of symptoms due to the patient's CKD is currently rated moderate/10 (10=most severe). The patient's CKD is currently stable. Relevant disease context/risk factors include: age over 60, male gender and hypertension. Hypertension The symptoms beg an gradually. The severity has been described as being mild-moderate. Comorbid conditions include chronic kidney disease. Risk factors include age over age 60, high salt intake and male gender. Pertinent negatives include chest pain, dyspnea, epistaxis, headache, hematuria, irregular heartbeat/palpitations, nausea and vomiting. Chronic Kidney Disease The riley nt's disease began gradually. The severity of symptoms due to the patient's CKD is currently rated moderate/10 (10=most severe). The patient's CKD is currently stable. Relevant disease context/risk factors include: age over 60, male gender and hypertension. Hypertension The symptoms beg an gradually. The severity has been described as being mild. Comorbid conditions include: chronic kidney disease. It is currently stable. Context/Risk factors include: age over age 60, high salt intake and male gender. Pertinent negatives include the lack of the following symptoms: chest pain, dyspnea, epistaxis, headache, hematuria and irregular heartbeat/palpitations. Chronic Kidney Disease The riley nt's disease began gradually. The severity of symptoms due to the patient's CKD is currently rated moderate/10 (10=most severe). The patient's CKD is currently stable. Relevant disease context/risk factors include: age over 60, male gender and hypertension. Pertinent negatives include a lack of the following symptoms: dysuria, dyspnea, hematuria, nausea, pruritus, rash, urinary frequency and vomiting. Hypertension The symptoms beg an gradually. The severity has been described as being mild. Comorbid conditions include: chronic kidney disease. It is currently stable. Context/Risk factors include: age over age 60, high salt intake and male gender. Hypertension The symptoms beg an gradually. The severity has been described as being mild. Comorbid conditions include: chronic kidney disease. It is currently stable. Context/Risk factors include: age over age 60, high salt intake and male gender. Chronic Kidney Disease The riley nt's disease began gradually. The severity of symptoms due to the patient's CKD is currently rated moderate/10 (10=most severe). The patient's CKD is currently stable. Relevant disease context/risk factors include: age over 60, male gender and hypertension. Hypertension The symptoms beg an gradually. The severity has been described as being mild. Comorbid conditions include: chronic kidney disease. It is currently stable. Context/Risk factors include: age over age 60, high salt intake and male gender. Chronic Kidney Disease The patie nt's disease began gradually. The severity of symptoms due to the patient's CKD is currently rated moderate/10 (10=most severe). The patient's CKD is currently stable. Relevant disease context/risk factors include: age over 60, male gender and hypertension. Hypertension The symptoms beg an gradually. The severity has been described as being mild. Comorbid conditions include: chronic kidney disease. It is currently stable. Context/Risk factors include: age over age 60, high salt intake and male gender. Chronic Kidney Disease The patie nt's disease began gradually. The severity of symptoms due to the patient's CKD is currently rated moderate/10 (10=most severe). The patient's CKD is currently stable. Relevant disease context/risk factors include: age over 60, male gender and hypertension. Pertinent negatives include a lack of the following symptoms: dysuria, dyspnea, hematuria, nausea, pruritus, rash, urinary frequency and vomiting. Hypertension The symptoms beg an gradually. The severity has been described as being mild. Comorbid conditions include: chronic kidney disease. It is currently stable. Context/Risk factors include: age over age 60, high salt intake and male gender. Chronic Kidney Disease The patie nt's disease began gradually. The severity of symptoms due to the patient's CKD is currently rated moderate/10 (10=most severe). The patient's CKD is currently stable. Relevant disease context/risk factors include: age over 60, male gender and hypertension. Pertinent negatives include a lack of the following symptoms: dysuria, dyspnea, hematuria, nausea, pruritus, rash, urinary frequency and vomiting. Hypertension The symptoms beg an gradually. The severity has been described as being mild. Comorbid conditions include: chronic kidney disease. It is currently stable. Context/Risk factors include: age over age 60, high salt intake and male gender. Chronic Kidney Disease The patie nt's disease began gradually. The severity of symptoms due to the patient's CKD is currently rated moderate/10 (10=most severe). The patient's CKD is currently stable. Relevant disease context/risk factors include: age over 60, male gender and hypertension. Chronic Kidney Disease The patie nt's disease began gradually. The severity of symptoms due to the patient's CKD is currently rated moderate/10 (10=most severe). The patient's CKD is currently stable. Relevant disease context/risk factors include: age over 60, male gender and hypertension. Hypertension The symptoms beg an gradually. The severity has been described as being mild. Comorbid conditions include: chronic kidney disease. It is currently stable. Context/Risk factors include: age over age 60, high salt intake and male gender. Hypertension The symptoms beg an gradually. The severity has been described as being mild. Comorbid conditions include: chronic kidney disease. It is currently stable. Context/Risk factors include: age over age 60, high salt intake and male gender. Pertinent negatives include the lack of the following symptoms: chest pain, dyspnea, epistaxis, headache, hematuria and irregular heartbeat/palpitations. Chronic Kidney Disease The patie nt's disease began gradually. The severity of symptoms due to the patient's CKD is currently rated moderate/10 (10=most severe). The patient's CKD is currently stable. Relevant disease context/risk factors include: age over 60, male gender and hypertension. Pertinent negatives include a lack of the following symptoms: dysuria, dyspnea, hematuria, nausea, pruritus, rash, urinary frequency and vomiting. Hypertension The symptoms beg an gradually. The severity has been described as being mild. Comorbid conditions include: chronic kidney disease. It is currently stable. Context/Risk factors include: age over age 60, high salt intake and male gender. Pertinent negatives include the lack of the following symptoms: chest pain, dyspnea, epistaxis, headache, hematuria and irregular heartbeat/palpitations. Chronic Kidney Disease The riley nt's disease began gradually. The severity of symptoms due to the patient's CKD is currently rated moderate/10 (10=most severe). The patient's CKD is currently stable. Relevant disease context/risk factors include: age over 60, male gender and hypertension. Pertinent negatives include a lack of the following symptoms: dysuria, dyspnea, hematuria, nausea, pruritus, rash, urinary frequency and vomiting. Hypertension The symptoms beg an gradually. The severity has been described as being mild. Comorbid conditions include: chronic kidney disease. It is currently stable. Context/Risk factors include: age over age 60, high salt intake and male gender. Pertinent negatives include the lack of the following symptoms: chest pain, dyspnea, epistaxis, headache, hematuria and irregular heartbeat/palpitations. Chronic Kidney Disease The riley nt's disease began gradually. The severity of symptoms due to the patient's CKD is currently rated moderate/10 (10=most severe). The patient's CKD is currently stable. Relevant disease context/risk factors include: age over 60, male gender and hypertension. Pertinent negatives include a lack of the following symptoms: dysuria, dyspnea, hematuria, nausea, pruritus, rash, urinary frequency and vomiting. Hypertension The symptoms beg an gradually. The severity has been described as being mild. Comorbid conditions include: chronic kidney disease. It is currently stable. Context/Risk factors include: age over age 60, high salt intake and male gender. Pertinent negatives include the lack of the following symptoms: chest pain, dyspnea, epistaxis, headache, hematuria and irregular heartbeat/palpitations. Chronic Kidney Disease The riley nt's disease began gradually. The severity of symptoms due to the patient's CKD is currently rated moderate/10 (10=most severe). The patient's CKD is currently stable. Relevant disease context/risk factors include: age over 60, male gender and hypertension. Pertinent negatives include a lack of the following symptoms: dysuria, dyspnea, hematuria, nausea, pruritus, rash, urinary frequency and vomiting. Chronic Kidney Disease The patie nt's disease began gradually. The severity of symptoms due to the patient's CKD is currently rated moderate/10 (10=most severe). The patient's CKD is currently stable. Relevant disease context/risk factors include: age over 60, male gender and hypertension. Pertinent negatives include a lack of the following symptoms: dysuria, dyspnea, hematuria, nausea, pruritus, rash, urinary frequency and vomiting. Hypertension The symptoms beg an gradually. The severity has been described as being mild. Comorbid conditions include: chronic kidney disease. It is currently stable. Context/Risk factors include: age over age 60, high salt intake and male gender. Pertinent negatives include the lack of the following symptoms: chest pain, dyspnea, epistaxis, headache, hematuria and irregular heartbeat/palpitations. Hypertension The symptoms beg an gradually. The severity has been described as being mild. Comorbid conditions include: chronic kidney disease. It is currently stable. Context/Risk factors include: age over age 60, high salt intake and male gender. Pertinent negatives include the lack of the following symptoms: chest pain, dyspnea, epistaxis, headache, hematuria and irregular heartbeat/palpitations. Chronic Kidney Disease The sympt oms began gradually. The severity has been described as being moderate. It is currently stable. Context/Risk factors include: age over 60, male gender and hypertension. Associated symptoms include: ankle swelling. Pertinent negatives include a lack of the following symptoms: dysuria, dyspnea, hematuria, nausea, pruritus, rash, urinary frequency and vomiting. 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, unspecified salt restricition Related to Flu id overload, unspecified Low Potassium Diet Related to Ch ronic kidney disease, stage 4 (severe) Monitor for now Related to Hyper kalemia salt restriction Related to Esse ntial (primary) hypertension Monitor for now 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, unspecified salt restricition Related to Flu id overload, unspecified Avoid ibuprofen type anti-inflammatory meds, proper hydration Related to Chronic kidney disease, stage 4 (severe) Low Potassium Diet Related to Ch ronic kidney disease, stage 4 (severe) Monitor for now 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, unspecified salt restriction Related to Esse ntial (primary) hypertension Avoid ibuprofen type anti-inflammatory meds, proper hydration Related to Chronic kidney disease, stage 4 (severe) Monitor for now Related to Hyper kalemia salt restricition Related to Flu id overload, unspecified Low Sodium Diet Related to Chron ic kidney disease, stage 4 (severe) Monitor for now 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, unspecified salt restricition Related to Flu id overload, unspecified Monitor for now Related to Hyper kalemia salt restriction Related to Esse ntial (primary) hypertension Avoid ibuprofen type anti-inflammatory meds, proper hydration Related to Chronic kidney disease, stage 4 (severe) Low Potassium Diet Related to Ch ronic kidney disease, stage 4 (severe) Monitor for now Related to Hyper kalemia salt restricition Related to Flu id overload, unspecified Avoid ibuprofen type anti-inflammatory meds, proper hydration Related to Chronic kidney disease, stage 4 (severe) Monitor for now 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, unspecified salt restriction Related to Esse ntial (primary) hypertension Low Potassium Diet Related to Ch ronic kidney disease, stage 4 (severe) Monitor for now Related to Hyper kalemia salt restricition Related to Flu id overload, unspecified Avoid ibuprofen type anti-inflammatory meds, proper hydration Related to Chronic kidney disease, stage 4 (severe) Monitor for now 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, unspecified salt restriction Related to Esse ntial (primary) hypertension Low Potassium Diet Related to Ch ronic kidney disease, stage 4 (severe) Monitor for now 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, unspecified Avoid ibuprofen type anti-inflammatory meds, proper hydration Related to Chronic kidney disease, stage 4 (severe) salt restriction Related to Esse ntial (primary) hypertension Monitor for now Related to Hyper kalemia salt restricition Related to Flu id overload, unspecified Low Potassium Diet Related to Ch ronic kidney disease, stage 3 (moderate) salt restricition Related to Flu id overload, unspecified Monitor for now 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, unspecified salt restriction Related to Esse ntial (primary) hypertension Monitor for now Related to Hyper kalemia Avoid ibuprofen type anti-inflammatory meds, proper hydration Related to Chronic kidney disease, stage 3 (moderate) Low Sodium Diet Related to Chron ic kidney disease, stage 3 (moderate) Low Sodium Diet Related to Chron ic kidney disease, stage 3 (moderate) salt restriction Related to Esse ntial (primary) hypertension Monitor for now 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, unspecified salt restricition Related to Flu id overload, unspecified Monitor for now Related to Hyper kalemia Avoid ibuprofen type anti-inflammatory meds, proper hydration Related to Chronic kidney disease, stage 3 (moderate) Low Sodium Diet Related to Chron ic kidney disease, stage 3 (moderate) Monitor for now 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, unspecified salt restriction Related to Esse ntial (primary) hypertension salt restricition Related to Flu id overload, unspecified Avoid ibuprofen type anti-inflammatory meds, proper hydration Related to Chronic kidney disease, stage 3 (moderate) Low Potassium Diet Related to Ch ronic kidney disease, stage 3 (moderate) Low Potassium Diet Related to Ch ronic kidney disease, stage 3 (moderate) Low Sodium Diet Related to Chron ic kidney disease, stage 3 (moderate) salt restricition Related to Flu id overload, unspecified salt restriction Related to Esse ntial (primary) hypertension Monitor for now 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, unspecified Avoid ibuprofen type anti-inflammatory meds, proper hydration Related to Chronic kidney disease, stage 3 (moderate) Low Sodium Diet Related to Chron ic kidney disease, stage 3 (moderate) salt restriction Related to Esse ntial (primary) hypertension Monitor for now 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, unspecified salt restricition Related to Flu id overload, unspecified Avoid ibuprofen type anti-inflammatory meds, proper hydration Related to Chronic kidney disease, stage 3 (moderate) Low Sodium Diet Related to Chron ic kidney disease, stage 3 (moderate) salt restriction Related to Esse ntial (primary) hypertension salt restricition Related to Flu id overload, unspecified Monitor for now 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, unspecified Avoid ibuprofen type anti-inflammatory meds, proper hydration Related to Chronic kidney disease, stage 3 (moderate) Low Sodium Diet Related to Chron ic kidney disease, stage 3 (moderate) salt restriction Related to Esse ntial (primary) hypertension salt restricition Related to Flu id overload, unspecified Monitor for now 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, unspecified Avoid ibuprofen type anti-inflammatory meds, proper hydration Related to Chronic kidney disease, stage 3 (moderate) Low Sodium Diet Related to Chron ic kidney disease, stage 3 (moderate) Monitor for now 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, unspecified salt restriction Related to Esse ntial (primary) hypertension Avoid ibuprofen type anti-inflammatory meds, proper hydration Related to Chronic kidney disease, stage 3 (moderate) salt restricition Related to Flu id overload, unspecified Low Sodium Diet Related to Chron ic kidney disease, stage 3 (moderate) salt restriction Related to Esse ntial (primary) hypertension Monitor for now 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, unspecified Avoid ibuprofen type anti-inflammatory meds, proper hydration Related to Chronic kidney disease, stage 3 (moderate) salt restricition Related to Flu id overload, unspecified Low Sodium Diet Related to Chron ic kidney disease, stage 3 (moderate) Low Sodium Diet Related to Chron ic kidney disease, stage 3 (moderate) salt restricition Related to Flu id overload, unspecified MOnitor for now 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, unspecified salt restriction Related to Esse ntial (primary) hypertension avoid nephrotoxions, proper hydration Related to Chronic kidney disease, stage 3 (moderate) Low Sodium Diet Related to Chron ic kidney disease, stage 3 (moderate) salt restriction Related to Esse ntial (primary) hypertension salt restricition Related to Flu id overload, unspecified MOnitor for now 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, unspecified avoid nephrotoxions, proper hydration Related to Chronic kidney disease, stage 3 (moderate) Low Sodium Diet Related to Chron ic kidney disease, stage 3 (moderate) Low Sodium Diet Related to Chron ic kidney disease, stage 3 (moderate) salt restriction Related to Esse ntial (primary) hypertension avoid nephrotoxions, proper hydration Related to Chronic kidney disease, stage 3 (moderate) salt restricition Related to Flu id overload, unspecified MOnitor for now 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, unspecified Low Sodium Diet Related to Chron ic kidney disease, stage 3 (moderate) salt restriction Related to Esse ntial (primary) hypertension MOnitor for now 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, unspecified avoid nephrotoxions, proper hydration Related to Chronic kidney disease, stage 3 (moderate) salt restricition Related to Flu id overload, unspecified Low Potassium Diet Related to Ch ronic kidney disease, stage 3 (moderate) Low Sodium Diet Related to Chron ic kidney disease, stage 3 (moderate) salt restricition Related to Flu id overload, unspecified avoid nephrotoxions, proper hydration Related to Chronic kidney disease, stage 3 (moderate) salt restriction Related to Esse ntial (primary) hypertension MOnitor for now 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, unspecified Monitor for now Related to Hyper potassemia Avoid nephrotoxins, proper hydration Related to Chronic kidney disease, Stage III (moderate) Monitor for now 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
--- OUTSIDE RECORDS SUMMARY | 2025-06-15 15:39 | XMS_ITS | Clinical Summary ---
Author Organization [facility] Address [address] [place] [id number] Care Team Providers Care Junior Web Developer Name Role Phone Andrés Meeks MD Primary Care Provider [phone] Social History Tobacco Use Types Packs/Day Years Used Date Smoking Tobacco: Never Assessed Sex and Gender Information Value Date Recorded Sex Assigned at Not on file Legal Sex Male 1:14 PM CDT Gender Identity Not on file Sexual Orientation Not on file Plan of Treatment Health Maintenance Due Date Last Done Comments Colorectal Cancer Screening Colonoscopy (10 Years) 1955 Hepatitis C 1971 DTaP, Tdap and Td Vaccines ( 1 - Tdap) 02/24/1972 Zoster Vaccines (2 of 3) 12/08/2015 10/13/2015 Annual Medicare Wellness Visit 2018 COVID-19 Vaccine (4 - 2023-2 5 season) 2024 09/30/2021, 02/20/2021, 01/23/2021 RSV Immunization or 60+ Years (1 - 1-dose 75+ series) 02/24/2028 Pneumococcal Vaccine: 50+ Years Completed 11/07/2019, 10/24/2018 Meningococcal B Vaccine Aged Out No l onger eligible based on patient's age to complete this topic Meningococcal Vaccine Aged Out No lashonda avery eligible based on patient's age to complete this topic RSV Immunizations Under 20 Months Aged Out No longer eligible b ased on patient's age to complete this topic Insurance [facility] Care Teams Junior Web Developer Relationship Specialty Start Date End Date Andrés Meeks MD [address] [place] [address] [place] [id number] PCP - General FAMILY PRACTICE 11/28/21
--- OUTSIDE RECORDS SUMMARY | 2025-06-15 15:39 | XMS_ITS | Encounter Summary ---
Author Organization [facility] Address [address] [place] [address] Care Team Providers Care Consumer Services Advisor Name Role Phone Unavailable Primary Care Provider Unavailabl e Encounter Details Date Type Department Care Team (Late st Contact Info) Description 09/09/2003 Outpatient Historical [facility] Backer, Ronak Garcia MD NO ADDRESS ON FILE CERVICAL SPINAL STENOSIS (Primary Dx) Social History Tobacco Use Types Packs/Day Years Used Date Smoking Tobacco: Never Assessed Sex and Gender Information Value Date Recorded Sex Assigned at Not on file Legal Sex Male 2:45 AM [place] [place] Gender Identity Not on file Sexual Orientation Not on file documented as of this encounter Plan of Treatment Not on file documented as of this encounter Visit Diagnoses Diagnosis Spinal stenosis in cervical region- Primary documented in this encounter
--- OUTSIDE RECORDS SUMMARY | 2025-06-15 15:39 | XMS_ITS | Continuity of Care Document ---
Author Organization [facility] Address [address] [place] [address] Phone Care Team Providers Care Pet Counselor Name Role Phone Jeff Basilio MD Unavailable Unavailable Allergies, Adverse Reactions, Alerts Substance Reaction Status Criticality No Known Allergies Active No Inform ation No Known Allergies Active No Inform ation Medications Medication Instructions Dosage Effective Dates (start - stop) Status Comments Lantus Solostar U-100 Insulin 100 unit/mL (3 mL) subcutaneous pen ADMINISTER 28 UNITS UNDER THE SKIN DAILY - Active Humalog KwikPen U-200 Insulin 200 unit/mL (3 mL) subcutaneous INJECT 8 UNITS UNDER THE SKIN THREE TIMES DAILY WITH MEALS - Active levothyroxine 50 mcg tablet TAKE 1 TABLET BY MOUTH DAILY - Active sulfamethoxazole 400 mg-trimethoprim 80 mg tablet take 1 tablet by mouth daily - Active Envarsus XR 1 mg tablet,extended release TAKE 1 TABLET EVERY DAY - Active Prevymis 480 mg tablet take 1 tablet by oral route every day 480 MG - Active prednisone 5 mg tablet take 1 tablet by oral route every day 5 MG - Active cinacalcet 60 mg tablet take 1 tablet by oral route every day with food 60 MG - Active mycophenolate sodium 360 mg tablet,delayed release take 1 Tablet by oral route 2 times every day on an empty stomach 360 MG - Active Vitamin D3 50 mcg (2,000 unit) tablet take 1 Tablet by Oral route every day 1 Tablet - Active aspirin 81 mg tablet,delayed release take 1 tablet by oral route every day 81 MG - Active TIMOLOL MALEATE (unknown strength) instill 1 drop by ophthalmic route every day into affected eye(s) Not Available - Active Tirosint 50 mcg capsule take 1 Tablet by Oral route every evening - Active tamsulosin 0.4 mg capsule take 1 capsule by oral route every day 1/2 hour following the same meal each day 0.4 MG - Active Procedures Procedure Date CONTRAST, 300/ML, PER ML INTRO CATH DIALYSIS CIRCUIT Radiation Exposure Documented To Be Coded Intro cath dialysis circuit Place catheter in artery Artery x-rays arm/leg Intro cath dialysis circuit Place catheter in artery Artery x-rays arm/leg CONTRAST, 300/ML, PER ML INTRO CATH DIALYSIS CIRCUIT Radiation Exposure Documented To Be Coded Intro cath dialysis circuit Place catheter in artery Artery x-rays arm/leg Intro cath dialysis circuit Place catheter in artery Artery x-rays arm/leg Trluml balo angiop 1st art Intro cath dialysis circuit Place catheter in artery Artery x-rays arm/leg Mod sed same phys/qhp 5/>yrs CONTRAST, 300/ML, PER ML MOD SED BY OR SUP BY PHYSICIAN INTRO CATH DIALYSIS CIRCUIT Radiation Exposure Documented To Be Coded Trluml balo angiop 1st art Intro cath dialysis circuit Place catheter in artery Artery x-rays arm/leg Mod sed same phys/qhp 5/>yrs Ligation of a-v fistula Intro cath dialysis circuit Place catheter in artery Artery x-rays arm/leg CONTRAST, 300/ML, PER ML MOD SED BY OR SUP BY PHYSICIAN INTRO CATH DIALYSIS CIRCUIT Radiation Exposure Documented To Be Coded Ligation of a-v fistula Intro cath dialysis circuit Place catheter in artery Artery x-rays arm/leg CONTRAST, 300/ML, PER ML INTRO CATH DIALYSIS CIRCUIT Radiation Exposure Documented To Be Coded Intro cath dialysis circuit Place catheter in artery Artery x-rays arm/leg Intro cath dialysis circuit Place catheter in artery Artery x-rays arm/leg CONTRAST, 300/ML, PER ML MOD SED BY OR SUP BY PHYSICIAN INTRO CATH DIALYSIS CIRCUIT Radiation Exposure Documented To Be Coded Intro cath dialysis circuit Place catheter in artery Artery x-rays arm/leg Mod sed same phys/qhp 5/>yrs Intro cath dialysis circuit Place catheter in artery Artery x-rays arm/leg Mod sed same phys/qhp 5/>yrs Intro cath dialysis circuit Place catheter in artery Artery x-rays arm/leg Mod sed same phys/qhp 5/>yrs CONTRAST, 300/ML, PER ML MOD SED BY OR SUP BY PHYSICIAN INTRO CATH DIALYSIS CIRCUIT Radiation Exposure Documented To Be Coded Intro cath dialysis circuit Place catheter in artery Artery x-rays arm/leg Mod sed same phys/qhp 5/>yrs Intro cath dialysis circuit Place catheter in artery Artery x-rays arm/leg CONTRAST, 300/ML, PER ML INTRO CATH DIALYSIS CIRCUIT Radiation Exposure Documented To Be Coded Intro cath dialysis circuit Place catheter in artery Artery x-rays arm/leg Intro cath dialysis circuit Place catheter in artery Artery x-rays arm/leg CONTRAST, 300/ML, PER ML INTRO CATH DIALYSIS CIRCUIT Radiation Exposure Documented To Be Coded Intro cath dialysis circuit Place catheter in artery Artery x-rays arm/leg CONTRAST, 300/ML, PER ML INTRO CATH DIALYSIS CIRCUIT Radiation Exposure Documented To Be Coded Intro cath dialysis circuit Place catheter in artery Artery x-rays arm/leg Intrvasc us noncoronary 1st LOCM 300-399mg/ml iodine,1ml LOCM 300-399mg/ml iodine,1ml CONTRAST, 300/ML, PER ML INTRO CATH DIALYSIS CIRCUIT Radiation Exposure Documented To Be Coded Intro cath dialysis circuit Place catheter in artery Artery x-rays arm/leg Intrvasc us noncoronary Intrvasc us noncoronary addl LOCM 300-399mg/ml iodine,1ml LOCM 300-399mg/ml iodine,1ml CONTRAST, 300/ML, PER ML INTRO CATH DIALYSIS CIRCUIT Radiation Exposure Documented To Be Coded Intro cath dialysis circuit Place catheter in artery Artery x-rays arm/leg Intrvasc us noncoronary Intrvasc us noncoronary addl LOCM 300-399mg/ml iodine,1ml LOCM 300-399mg/ml iodine,1ml CONTRAST, 300/ML, PER ML MOD SED BY OR SUP BY PHYSICIAN INTRO CATH DIALYSIS CIRCUIT Radiation Exposure Documented To Be Coded Intro cath dialysis circuit Place catheter in artery Artery x-rays arm/leg Intrvasc us noncoronary 1st Intrvasc us noncoronary addl Mod sed same phys/qhp 5/>yrs LOCM 300-399mg/ml iodine,1ml LOCM 300-399mg/ml iodine,1ml Office/outpatient visit est To Be Coded Office/outpatient visit est CONTRAST, 300/ML, PER ML MOD SED BY OR SUP BY PHYSICIAN INTRO CATH DIALYSIS CIRCUIT Radiation Exposure Documented To Be Coded Intro cath dialysis circuit Vasc embolize/occlude artery Place catheter in artery Artery x-rays arm/leg Vein x-ray chest Artery x-rays lung Place catheter in vein Remove intrvas foreign body Mod sed same phys/qhp 5/>yrs Mod sed same phys/qhp ea LOCM 300-399mg/ml iodine,1ml LOCM 300-399mg/ml iodine,1ml Place catheter in artery CONTRAST, 300/ML, PER ML INTRO CATH DIALYSIS CIRCUIT Radiation Exposure Documented To Be Coded Intro cath dialysis circuit Place catheter in artery Artery x-rays arm/leg Intrvasc us noncoronary 1st LOCM 300-399mg/ml iodine,1ml LOCM 300-399mg/ml iodine,1ml CONTRAST, 300/ML, PER ML MOD SED BY OR SUP BY PHYSICIAN INTRO CATH DIALYSIS CIRCUIT Radiation Exposure Documented To Be Coded Intro cath dialysis circuit Place catheter in artery Artery x-rays arm/leg Intrvasc us noncoronary 1st Intrvasc us noncoronary addl Mod sed same phys/qhp 5/>yrs LOCM 300-399mg/ml iodine,1ml LOCM 300-399mg/ml iodine,1ml CONTRAST, 300/ML, PER ML MOD SED BY OR SUP BY PHYSICIAN INTRO CATH DIALYSIS CIRCUIT Radiation Exposure Documented To Be Coded Intro cath dialysis circuit Place catheter in artery Artery x-rays arm/leg Mod sed same phys/qhp 5/>yrs LOCM 300-399mg/ml iodine,1ml LOCM 300-399mg/ml iodine,1ml Advance Directives Directive Yes / No Effective Date File Name No Information Encounters Encounter Description Practice Location Reason(s) For Visit Diagnoses Date Provider Providers Copied on Encounter [facility], [address], [place], [place], [id number], tel:[phone] [facility] No Information 0- 5 Makris Jeff. [address] [place] [address], [id number], . tel:[phone] [facility], [address], [place], [place], [id number], tel:[phone] [facility] Compression of VeinEnd stage renal disease Jan-0 5 Makris Jeff. [address] [place] [address], [id number], . tel:[phone] Referring Provider: [place], [address] . tel:[phone] [facility], [address] [place] [address], [id number], tel:[phone] [facility] Compression of VeinEnd stage renal disease Jan-0 6 5 Makris Jeff. [address] [place] [address], [id number], . tel:[phone] Referring Provider: Demarcus Palacios, [place], [address] . tel:[phone] [facility], [address], [place], [place], [id number], tel:[phone] [facility] No Information 5 Makris Jeff. [address] [place], [place] [email or web address] [place], [place], [id number], [place]. tel:[phone] [facility], [address], [place], [place], [id number], tel:[phone] [facility] Compression of VeinEnd stage renal disease 3 Makris Jeff. [address] [place], [place] [address] [place], [id number], [place]. tel:[phone] Referring Provider: Demarcus Palacios, [address] [place], [address] . tel:[phone] [facility], [address] [place], [place] [address] [place], [place], [id number], tel:[phone] [facility] Compression of VeinEnd stage renal disease 3 Makris Jeff. [address] [place], [place] [address] [place], [place], [id number], [place]. tel:[phone] Referring Provider: Demarcus Palacios, [address] [employer] [address], [place], [address] . tel:[phone] [facility], [address] [place], [place] [address] [place], [place], [id number], tel:[phone] [facility] End stage renal disease 3 Makris Jeff. [address] [place], [place] [email or web address] [place], [id number], [place]. tel:[phone] Referring Provider: Demarcus Palacios, [address], [address] . tel:[phone] [facility], [address], [place], [place], [id number], tel:[phone] [facility] End stage renal disease 3 Makris Jeff. [address] [place], [place] [email or web address] [place], [place], [id number], . tel:[phone] Referring Provider: Demarcus Palacios [address], [place], [address] . tel:[phone] [facility], [address] [email or web address] [place], [id number], tel:[phone] [facility] End stage renal disease Apr- 3 Gutierrez Mariano. [address] [place], [place] [email or web address] [place], [id number], . tel:[phone] Referring Provider: Demarcus Palacios [address], [place], [address] . tel:[phone] [facility], [facility] [place], [address], tel:[phone] [facility] End stage renal disease 3 Gutierrez Mariano. [address] [place], [place] [email or web address] [place], [place], [id number], . tel:[phone] Referring Provider: Connie Crew[address], [place], [address] . tel:[phone] [facility], [facility] [place], [id number], tel:[phone] [facility] Compression of VeinEnd stage renal disease 3 Makris Jeff. [address] [place], [place] [email or web address] [place], [place], [id number], [place]. tel:[phone] Referring Provider: Connie Crew[address], [place], [address] . tel:[phone] [facility], [address] [place], [place] [email or web address] [place], [place], [id number], tel:[phone] [facility] End stage renal diseaseCompress ion of Vein 3 Makris Jeff. [address] [place], [place] [email or web address] [place], [id number], . tel:[phone] Referring Provider: Demarcus Palacios, [address], [place], [address] . tel:[phone] [facility], [address], [place], [place], [id number], tel:[phone] [facility] Compression of VeinEnd stage renal disease 2 Tasha Erazo. [address] [place], [place] [email or web address] [place], [place], [id number], . tel:[phone] Referring Provider: Connie [address], [place], [address] . tel:[phone] [facility], [address] [place] [address], [id number], tel:[phone] [facility] Compression of VeinEnd stage renal disease 2 Tasha Erazo. [address] [place], [place] [email or web address] [place], [place], [id number], . tel:[phone] Referring Provider: Connie Crew[address], [place], [address] . tel:[phone] [facility], [address], [place], [place], [id number], tel:[phone] [facility] Compression of VeinEnd stage renal disease 2 Gutierrez Mariano. [address] [place], [place] [email or web address] [place], [id number], [place]. tel:[phone] Referring Provider: Connie Crew[address], [place], [address] . tel:[phone] [facility], [address] [place], [place] [email or web address] [place], [place], [id number], tel:[phone] [facility] End stage renal diseaseCompress ion of Vein 2 Gutierrez Mariano. [address] [place], [place] [address] [place], [id number], [place]. tel:[phone] Referring Provider: Connie [address], [place], [address] . tel:[phone] [facility], [address], [place], [place], [address], [place] [facility] End stage renal diseaseCompress ion of Vein 0- 2 Will Flori. [facility] [employer] [place], [id number], [place]. tel:[phone] Referring Provider: Cindy Mora, [address] [facility] [address], [place], [address]. tel:[phone] [facility], [address] [place], [place] [address] [employer], [address], [place] tel:[phone] [facility] Compression of VeinEnd stage renal disease 2 Tasha Erazo. [address] [place], [place] [address] [place], [address], [place]. tel:[phone] Referring Provider: Cindy Mora, [address] [facility] [address], [place], [address]. tel:[phone] [facility], [address] [place], [place] [email or web address] [place], [id number], [place] tel:[phone] [facility] Compression of VeinEnd stage renal disease 2 Tasha Erazo. [facility] [employer] [place], [place], [address], [place]. tel:[phone] Referring Provider: Cindy Mora, [address] [facility] [address], [place], [address]. tel:[phone] [facility], [facility] [employer] [place], [place], [id number], [place] tel:[phone] [facility] End stage renal diseaseCompress ion of Vein Jan- 2 Tasha Erazo. [address] [place], [place] [address] [place], [address], [place]. tel:[phone] Referring Provider: Cindy Mora, [address] [facility] [address], [place], [address]. tel:[phone] [facility], [address], [place], [place], [address], [place] tel:[phone] [facility] Compression of VeinEnd stage renal disease Jan- 2 Tasha Erazo. [address] [place], [place], [id number], [place]. tel:[phone] Referring Provider: Cindy Mora, [address] [facility] [address], [place], [address]. tel:[phone] [facility], [address], [place], [place], [id number], [place] tel:[phone] [facility] No Information 2 Makris Jeff. [address] [place], [place] [email or web address] [place], [place], [id number], [place]. tel:[phone] [facility], [address] [place] [address], [id number], [place] tel:[phone] [facility] Compression of VeinEnd stage renal disease 1 Tasha Erazo. [address] [place] [address], [id number], [place]. tel:[phone] Referring Provider: Cindy Mora, [address] [facility] [address], [place], [address]. tel:[phone] [facility], [address] [place], [place] [address] [email or web address] [place], [place], [id number], [place] tel:[phone] [facility] Compression of VeinEnd stage renal disease 1 Gutierrez Mariano. [address] [place] [address], [id number], [place]. tel:[phone] Referring Provider: Demarcus Palacios, [address] , [place], [address] . tel:[phone] [facility], [address] [place], [place] [email or web address] [place], [id number], [place] tel:[phone] [facility] Compression of VeinEnd stage renal disease 1 Makris Jeff. [address] [place] [address], [id number], [place]. tel:[phone] Referring Provider: Connie Crews E [facility], [place], [address] . tel:[phone] [facility], [address] [place], [place], [id number], tel:[phone] [facility] End stage renal disease 1 Makris Jeff. [address] [place], [place], [id number], [place]. tel:[phone] Referring Provider: Connie Crews E [facility], [place], [address] . tel:[phone] Office/outpa tient visit est Ilana JIANG, [address] [place] [address], [id number], tel:[phone] [facility] 0 Tasha Erazo. [address] [place] [address], [id number], [place]. tel:[phone] Referring Provider: [place], [address] . tel:[phone] [facility], [address] [place] [address], [id number], tel:[phone] [facility] End stage renal disease 0 Gutierrez Mariano. [address] [place] [address], [id number], . tel:[phone] Referring Provider: Connie Crews E [facility], [place], [address] . tel:[phone] [facility], [address] [place] [address], [id number], tel:[phone] [facility] Stricture of ArteryEnd stage renal disease 0 Tasha Erazo. [address] [place] [address], [id number], . tel:[phone] Referring Provider: Demarcus Palacios, [address] [place], [address] . tel:[phone] [facility], [address] [place], [place], [id number], tel:[phone] [facility] Stricture of ArteryEnd stage renal disease 0 Makris Jeff. [address] [place] [address], [id number], [place]. tel:[phone] Referring Provider: Demarcus Palacios, [address] [place], [address] . tel:[phone] [facility], [address] [place] [address], [id number], tel:[phone] [facility] Stricture of ArteryEnd stage renal diseaseStrictur e of ArteryEnd stage renal disease 0 Tasha Erazo. [address] [place] [address], [id number], [place]. tel:[phone] Referring Provider: Cindy Moar, [address] [facility] [address], [place], [address]. tel:[phone] [facility], [address] [place] [address], [id number], [place] tel:[phone] [facility] No Information 0 Makris Jeff. [address] [place] [address], [id number], [place]. tel:[phone] As per patient privacy policy some of the clinical information may not be visible. Family History Family Member Type Diagnosis Age At Onset Father Problem (finding) Renal disease Payers Payer name Insurance type Covered alliance party ID Authoriza tion(s) Medicare [place] MB [id number] [facility] [id number] Social History Type Description Quantity Date Captured Comments Sex Male Smoking Status No Information Gender Identity Male Chief Complaint And Reason For Visit No Information Reason For Referral Reason For Referral No Information Plan Of Treatment Date Type Action Status Appointment Harpreet Ponce// RFF *MCR* CO2* From Trans. Pt BOOKED Future Order: Radiology Order Up per Body Flouroscopy ([id number]), Ordered on: Ordered Future Order: Radiology Order Up per Body Flouroscopy ([id number]), Ordered on: Ordered Future Order: Radiology Order Up per Body Flouroscopy ([id number]), Ordered on: Ordered Future Order: Radiology Order Up per Body Flouroscopy ([id number]), Ordered on: Ordered Future Order: Radiology Order Up per Body Flouroscopy ([id number]), Ordered on: Ordered Future Order: Radiology Order Up per Body Flouroscopy ([id number]), Ordered on: Ordered Future Order: Radiology Order Up per Body Flouroscopy ([id number]), Ordered on: Ordered Future Order: Radiology Order Up per Body Flouroscopy ([id number]), Ordered on: Ordered Future Order: Radiology Order Up per Body Flouroscopy ([id number]), Ordered on: Ordered Future Order: Radiology Order Up per Body Flouroscopy ([id number]), Ordered on: Ordered Future Order: Radiology Order Up per Body Flouroscopy ([id number]), Ordered on: Ordered Future Order: Radiology Order Up per Body Flouroscopy ([id number]), Ordered on: Ordered Future Order: Radiology Order Up per Body Flouroscopy ([id number]), Ordered on: Ordered Future Order: Radiology Order Up per Body Flouroscopy ([id number]), Ordered on: Ordered Future Order: Radiology Order Up per Body Flouroscopy ([id number]), Ordered on: Ordered Future Order: Radiology Order Up per Body Flouroscopy ([id number]), Ordered on: Ordered Future Order: Radiology Order Up per Body Flouroscopy ([id number]), Ordered on: Ordered History Of Present Illness Encounter Date Complaint History Of Prese nt Illness No Information Functional Status Date Functional Assessmen t No Information Instructions Date Instruction Additional Infor mation No Information Assessments Type Assessment Date No Information Patient Care Teams Name Effective Dates (start - stop) Status Members No Information
--- OUTSIDE RECORDS SUMMARY | 2025-06-15 15:42 | XMS_ITS | Continuity of Care Document ---
Author Organization [facility] Address [address] [address] Phone Care Team Providers Care Theatre Program Director Name Role Phone Moses Ruiz MD Unavailable [...] Date Provider Providers Copied on Encounter Subsequent [facility], [address] [place] [address], [address], tel:[phone] [facility] Acute kidney failure, unspecifiedChron ic kidney disease, stage 4 (severe)Type 2 diabetes mellitus with diabetic chronic kidney diseaseImmunodef iciency, unspecifiedEncou nter for aftercare following kidney transplantOther recurrent and persistent immunoglobulin A nephropathy Jul- 4 Sara DEUTSCH Moses. [address] [facility], [address], [place], [id number], [place]. tel:[phone] Subsequent [facility], [address] [place] [address], [address], tel:[phone] [facility] Chronic kidney disease, stage 4 (severe)Type 2 diabetes mellitus with diabetic chronic kidney diseaseKidney transplant statusImmunodefi ciency, unspecifiedOther recurrent and persistent immunoglobulin A nephropathyAcute kidney failure, unspecified Sep-2 4 Sara Lopes. [address] [facility], [address] [place] [address], [id number], [place]. tel:[phone] [facility] Care [facility], [address] [place], [address], tel:[phone] [facility] Acute kidney failure, unspecifiedChron ic kidney disease, stage 4 (severe)Type 2 diabetes mellitus with diabetic chronic kidney diseaseImmunodef iciency, unspecifiedEncou nter for aftercare following kidney transplantOther recurrent and persistent immunoglobulin A nephropathy Sep-2 4 Sara Lopes[address] [place] [address], [address] [place] [address], [id number], [place]. tel:[phone] [facility], [address] [place] [address], [address], tel:[phone] [facility] Other disorders of phosphorus metabolismEnd stage renal diseaseDependenc e on renal dialysis 4 Sara Lopes. [address] [place] [address], [address], [id number], [place]. tel:[phone] [facility], [address] [place] [address], [address], tel:[phone] [facility] Other disorders of phosphorus metabolismEnd stage renal diseaseDependenc e on renal dialysis 3 Suzanne Leet. [address], [place], [place], [id number], [place]. tel:[phone] [facility], [address] [place] [address], [address], tel:[phone] [facility] Other disorders of phosphorus metabolismEnd stage renal diseaseDependenc e on renal dialysis 3 Sara Lopes. [address] [facility], [address] [place] [address], [id number], [place]. tel:[phone] [facility], [address] [place] [address], [address] [place] [address] tel:[phone] [facility] Other disorders of phosphorus metabolismEnd stage renal diseaseDependenc e on renal dialysis 3 Suzanne Tracy. [address] [place], [id number], [place]. tel:[phone] [facility], [address] [place] [address], [facility], tel:[phone] [facility] Other disorders of phosphorus metabolismEnd stage renal diseaseDependenc e on renal dialysis 3 Sara Lopes. [address] [place] [address], [address] [place] [address], [id number], [place]. tel:[phone] [facility], [address] [place] [address], [facility], tel:[phone] [facility] No Information 3 Josue Garcia. [address] [facility], [place], [place], [id number], [place]. tel:[phone] [facility], [address] [place] [address], [facility], tel:[phone] [facility] End stage renal diseaseHypertens shawn chronic kidney disease with stage 5 chronic kidney disease or end stage renal diseaseType 2 diabetes mellitus with diabetic chronic kidney diseaseOther disorders of phosphorus metabolismDepend ence on renal dialysis 3 Sara Lopes. [address] [facility], [address], [place], [place], [id number], [place]. tel:[phone] [facility], [address] [place] [address], [facility], tel:[phone] [facility] Other disorders of phosphorus metabolismEnd stage renal diseaseDependenc e on renal dialysis 3 Suzanne Tracy. [address] [place], [id number], [place]. tel:[phone] [facility], [address] [place] [address], [facility], tel:[phone] [facility] End stage renal diseaseDependenc e on renal dialysis 3 Sara Lopes. [address] [place] [address], [address], [id number], . tel:[phone] [facility], [address] [place] [address], [facility], tel:[phone] [facility] End stage renal diseaseDependenc e on renal dialysis 3 Sara Lopes. [address] [place] [address], [address], [id number], . tel:[phone] [facility], [address] [place] [address], [facility], tel:[phone] [facility] End stage renal diseaseDependenc e on renal dialysis 3 Suzanne Tracy. [address] [place], [place], [id number], [place]. tel:[phone] [facility], [address] [place] [address], [facility], tel:[phone] [facility] End stage renal diseaseDependenc e on renal dialysis 3 Sara Lopes. [address] [place] [address], [address], [id number], . tel:[phone] [facility], [address] [place] [address], [facility], tel:[phone] [facility] No Information 3 Suzanne Wu [address] [place], [place], [id number], [place]. tel:[phone] [facility], [address] [place] [address], [facility], tel:[phone] [facility] End stage renal diseaseDependenc e on renal dialysis 3 Suzanne Tracy. [address] [place], [place], [id number], . tel:[phone] [facility], [address] [place] [address], [facility], tel:[phone] [facility] End stage renal diseaseDependenc e on renal dialysis 3 Abby White. [address] [place], [place], [id number], . tel:[phone] [facility], [address] [place] [address], [address] [place] [address] tel:[phone] [facility] End stage renal diseaseDependenc e on renal dialysis 3 Sara Lopes. [address] [place] [address], [address], [id number], . tel:[phone] [facility], [address] [place] [address], [facility], tel:[phone] [facility] End stage renal diseaseDependenc e on renal dialysis 2 Abby White. [address] [place], [place], [id number], . tel:[phone] [facility], [address] [place] [address], [facility], tel:[phone] [facility] End stage renal diseaseDependenc e on renal dialysis 2 Suzanne Tracy. [address] [place], [place], [id number], . tel:[phone] [facility], [address] [place] [address], [facility], tel:[phone] [facility] End stage renal diseaseDependenc e on renal dialysis 2 Abby Watt [address], [place], [place], [id number], [place]. tel:[phone] [facility], [address] [place] [address], [address], tel:[phone] [facility] End stage renal diseaseDependenc e on renal dialysis 2 Suzanne Wu [address], [id number], [place]. tel:[phone] [facility], [address] [place] [address], [address], tel:[phone] [facility] End stage renal diseaseDependenc e on renal dialysis 2 Abby White. [address], [place], [place], [id number], [place]. tel:[phone] [facility], [address] [place] [address], [address], tel:[phone] [facility] End stage renal diseaseDependenc e on renal dialysis 2 Suzanne Wu [address], [id number], [place]. tel:[phone] [facility], [address] [place] [address], [address], tel:[phone] [facility] End stage renal diseaseDependenc e on renal dialysis 2 Abby White. [address], [place], [place], [id number], [place]. tel:[phone] [facility], [address] [place] [address], [address], tel:[phone] [facility] End stage renal diseaseDependenc e on renal dialysis 2 Suzanne Wu [address], [place], [id number], [place]. [phone] [facility], [address] [place] [address], [address], tel:[phone] [facility] End stage renal diseaseDependenc e on renal dialysis 2 Abby Watt [address], [facility], [place], [place], [id number], [place]. tel:[phone] [facility], [address] [place] [address], [address], tel:[phone] [facility] End stage renal diseaseDependenc e on renal dialysis 2 Suzanne Wu [address] [place], [id number], [place]. tel:[phone] [facility], [address] [place] [address], [address], tel:[phone] [facility] End stage renal diseaseDependenc e on renal dialysis 2 Abby White. [address], [place], [place], [id number], [place]. tel:[phone] [facility], [address] [place] [address], [address], [phone] [facility] End stage renal diseaseType 2 diabetes mellitus with diabetic chronic kidney diseaseDependenc e on renal dialysisEssentia l (primary) hypertensionShor tness of breath 2 Suzanne Wu [address], [place], [place], [id number], [place]. [phone] [facility], [address] [place] [address], [address], [place] tel:[phone] [facility] End stage renal diseaseDependenc e on renal dialysis 2 Suzanne Wu [address] [place], [id number], [place]. tel:[phone] [facility], [address] [place] [address], [address], [place] [phone] [facility] End stage renal diseaseDependenc e on renal dialysis 1 Abby Watt [address], [place], [place], [id number], [place]. tel: [facility], [address] [place] [address], [address], [place] tel: [phone] [facility] End stage renal diseaseDependenc e on renal dialysis 1 Abby Watt [address], [place], [place], [id number], [place]. tel: [facility], [address] [place] [address], [address], tel: [phone] [facility] End stage renal diseaseDependenc e on renal dialysis 1 Suzanne Wu [address] [place], [address], [place]. tel: [facility], [address] [place] [address], [address], tel:[phone] [facility] End stage renal diseaseDependenc e on renal dialysis 1 Abby White. [address], [place], [place], [id number], [place]. tel: [facility], [address] [place] [address], [address], [place] tel:[phone] [facility] End stage renal diseaseDependenc e on renal dialysis 1 Suzanne Wu [address], [place], [address], [place]. tel: [facility], [address] [place] [address], [address], [place] tel:[phone] [facility] End stage renal diseaseDependenc e on renal dialysis 1 Abby White. [address], [address], . tel:[phone] [facility], [address] [place] [address], [address], tel:[phone] [facility] End stage renal diseaseDependenc e on renal dialysis 1 Suzanne Wu [address] [place], [address], [place]. tel:[phone] [facility], [address] [place] [address], [address], tel:[phone] [facility] End stage renal diseaseDependenc e on renal dialysis 1 Abby White. [address] [place], [id number], [place]. tel:[phone] [facility], [address] [place] [address], [address], tel:[phone] [facility] End stage renal diseaseDependenc e on renal dialysis 1 Suzanne Wu [address] [place], [id number], [place]. tel:[phone] [facility], [address], [address], tel:[phone] [facility] End stage renal diseaseDependenc e on renal dialysis 1 Abby Watt [address], [id number], [place]. tel:[phone] [facility], [address] [place] [address], [address], tel:[phone] [facility] End stage renal diseaseDependenc e on renal dialysis 1 Suzanne Wu [address], [place], [place], [address], [place]. tel:[phone] [facility], [facility] [address] [place] [address], [address], tel:[phone] [facility] End stage renal diseaseDependenc e on renal dialysis 0 1 Abby White. [address], [place], [place], [id number], [place]. tel:[phone] [facility], [facility] [address] [place] [address], [address], [place] tel:[phone] [facility] End stage renal diseaseDependenc e on renal dialysis 0 Suzanne Tracy. [address], [address], [place]. tel:[phone] [facility], [address] [place] [address], [address], tel:[phone] [facility] End stage renal diseaseDependenc e on renal dialysis 0 Abby White. [address], [place], [place], [address], [place]. tel:[phone] [facility], [address] [place] [address], [address], tel:[phone] [facility] End stage renal diseaseDependenc e on renal dialysis Aug- 0 Suzanne Wu [address], [address], [place]. tel:[phone] [facility], [address] [place] [address], [address], [place] tel:[phone] [facility] End stage renal diseaseDependenc e on renal dialysis Sep-0 0 Abby Watt [address], [place], [place], [address], [place]. tel:[phone] [facility], [address], [place], [address], [place] tel:[phone] [facility] End stage renal diseaseDependenc e on renal dialysis 0 Suzanne Tracy. [address] [facility], [place], [place], [address], [place]. tel:[phone] Initial Hospital Care [facility], [address] [place], [place], [address], [place] tel:[phone] [facility] End stage renal diseaseEssential (primary) hypertensionDiar daphne, unspecifiedShort ness of breathDependence on renal dialysis 0 Connie John. [address], [address], [place], [address], [place]. tel:[phone] Referring Provider: Arlen Oshea, [address] [place] [address] [address], [place], [place], [id number]. tel:[phone] Subsequent [facility], [address] [place], [address], [place] tel:[phone] [facility] End stage renal diseaseEssential (primary) hypertensionDepe ndence on renal dialysis 0 Connie John. [address], [address], [place], [address], [place]. tel:[phone] Referring Provider: Arlen Oshea, [address] [place] [address] Drive [address], [place], [place], [id number]. tel:[phone] Subsequent [facility], [address], [place], [address], [place] tel:[phone] [facility] End stage renal diseaseEssential (primary) hypertensionDiar daphne, unspecifiedShort ness of breathDependence on renal dialysis 0 Connie John. [address], [address], [place], [address], [place]. tel:[phone] Referring Provider: Arlen Oshea, [address], [place], [place], [id number]. tel:[phone] [facility], [facility] [address] [place] [address], [address], tel:[phone] [facility] Follow Up of ESRD (chief complaint) Type 2 diabetes mellitus w diabetic chronic kidney diseaseEnd stage renal disease 0 Suzanne Wu [address] [place], [place], [id number], [place]. tel:[phone] [facility], [address] [place] [address], [address], tel:[phone] [facility] End stage renal diseaseDependenc e on renal dialysis 0 Suzanne Wu [address] [place], [place], [id number], [place]. tel:[phone] [facility], [address] [place] [address], [address], [place] tel:[phone] [facility] End stage renal diseaseDependenc e on renal dialysis 0 Abby Watt [address], [facility], [place], [place], [id number], [place]. tel:[phone] [facility], [address] [place] [address], [address], tel:[phone] [facility] End stage renal diseaseDependenc e on renal dialysis 0 Suzanne Wu [address] [place], [place], [id number], [place]. tel:[phone] [facility], [facility] [address] [place] [address], [address], tel:[phone] [facility] End stage renal diseaseDependenc e on renal dialysis 0 Abby Watt [address], [address], [place], [place], [address], [place]. tel:[phone] [facility], [address] [place] [address], [address], tel:[phone] [facility] End stage renal diseaseDependenc e on renal dialysis 0 Suzanne Wu [address] [place], [place], [id number], [place]. tel:[phone] [facility], [address] [place] [address], [address], tel:[phone] [facility] End stage renal diseaseDependenc e on renal dialysis 0 Abby White. [address] [facility], [facility], [place], [place], [address], [place]. tel:[phone] [facility], [address] [place] [address], [address], tel:[phone] [facility] End stage renal diseaseType 2 diabetes mellitus w diabetic chronic kidney diseaseEssential (primary) hypertensionGout due to renal impairment, right elbowGout due to renal impairment, right wristDependence on renal dialysis 0 Suzanne Wu [address] [place], [place], [address], [place]. tel:[phone] [facility], [address] [place] [address], [address], tel:[phone] [facility] End stage renal diseaseGout due to renal impairment, right elbowGout due to renal impairment, right wristType 2 diabetes mellitus w diabetic chronic kidney diseaseEssential (primary) hypertensionDepe ndence on renal dialysis 0 Suzanne Wu [address] [place], [place], [address], [place]. tel:[phone] [facility], [address] [place] [address], [address], tel:[phone] [facility] End stage renal diseaseDependenc e on renal dialysis 0 Abby White. [address] [facility], [place], [place], [id number], [place]. [phone] Office/outpat ient Visit, Est [facility], [address], [facility], tel:[phone] [facility] Chronic Kidney Disease (chief complaint) Hypertensi on (chief complaint) Chronic kidney disease, stage 4 (severe)Fluid overload, unspecifiedHyper kalemiaNeuromusc ular dysfunction of bladder, unspecifiedEssen tial (primary) hypertension 0 Mari Walton. [address] [place] [address], [id number], [place]. [phone] [facility], [address] [place] [address], [facility], tel:[phone] [facility] Chronic kidney disease, stage 4 (severe)Fluid overload, unspecifiedHyper kalemiaNeuromusc ular dysfunction of bladder, unspecifiedEssen tial (primary) hypertension 0 Mari Walton. [address] [place] [address], [id number], [place]. tel:[phone] [facility], [address] [place] [address], [address], tel:[phone] [facility] Chronic kidney disease, stage 4 (severe)Fluid overload, unspecifiedHyper kalemiaNeuromusc ular dysfunction of bladder, unspecifiedEssen tial (primary) hypertension 9 Mari Walton. [facility]0 [facility], [address], [id number], [place]. [phone] Office/outpat ient Visit, [facility], [address] [place] [address], [facility], tel:[phone] [facility] Chronic Kidney Disease (chief complaint) Hypertensi on (chief complaint) Chronic kidney disease, stage 4 (severe)Fluid overload, unspecifiedHyper kalemiaNeuromusc ular dysfunction of bladder, unspecifiedEssen tial (primary) hypertension 9 Mari Walton. [address] [facility], [address] [place] [address], [id number], [place]. tel:[phone] Office/outpat ient Visit, Est [facility], [address] [place] [address], [address], tel:[phone] [facility] Chronic Kidney Disease (chief complaint) Hypertensi on (chief complaint) Chronic kidney disease, stage 4 (severe)Fluid overload, unspecifiedHyper kalemiaNeuromusc ular dysfunction of bladder, unspecifiedEssen tial (primary) hypertension 9 Mari Walton. [address] [facility], [address] [place] [address], [id number], [place]. tel:[phone] Office/outpat ient Visit, Est [facility], [address] [place] [address], [address], tel:[phone] [facility] Chronic Kidney Disease (chief complaint) Hypertensi on (chief complaint) Chronic kidney disease, stage 4 (severe)Fluid overload, unspecifiedHyper kalemiaNeuromusc ular dysfunction of bladder, unspecifiedEssen tial (primary) hypertension 9 Mari Walton. [address] [facility], [address] [place] [address], [id number], [place]. [phone] Office/outpat ient Visit, Est [facility], [address] [place] [address], [id number], tel:[phone] [facility] Chronic Kidney Disease (chief complaint) Hypertensi on (chief complaint) Chronic kidney disease, stage 4 (severe)Fluid overload, unspecifiedHyper kalemiaNeuromusc ular dysfunction of bladder, unspecifiedEssen tial (primary) hypertension 9 Mari Walton. [address] [facility], [address], [place], [id number], [place]. tel:[phone] [facility], [address] [place] [address], [facility], tel:[phone] [facility] Chronic kidney disease, stage 4 (severe)Fluid overload, unspecifiedHyper kalemiaNeuromusc ular dysfunction of bladder, unspecifiedEssen tial (primary) hypertension 9 Mari Walton. [address] [facility], [address] [place] [address], [id number], [place]. tel:[phone] [facility], [address], [facility], tel:[phone] [facility] Chronic kidney disease, stage 4 (severe)Fluid overload, unspecifiedHyper kalemiaNeuromusc ular dysfunction of bladder, unspecifiedEssen tial (primary) hypertension 9 Mari Walton. [address] [facility], [address] [place] [address], [id number], [place]. tel:[phone] Office/outpat ient Visit, [facility], [address], [facility], tel:[phone] [facility] Chronic Kidney Disease (chief complaint) Hypertensi on (chief complaint) Chronic kidney disease, stage 4 (severe)Fluid overload, unspecifiedHyper kalemiaNeuromusc ular dysfunction of bladder, unspecifiedEssen tial (primary) hypertension 9 Mari Walton. [address] [facility], [address], [id number], [place]. tel:[phone] [facility], [address], [facility], tel: [phone] [facility] Chronic kidney disease, stage 4 (severe)Fluid overload, unspecifiedHyper kalemiaNeuromusc ular dysfunction of bladder, unspecifiedEssen tial (primary) hypertension 9 Mari Walton. [address] [facility], [address], [id number], [place]. tel:[phone] Office/outpat ient Visit, [facility], [address] [place] [address], [address], tel:[phone] [facility] Chronic Kidney Disease (chief complaint) Hypertensi on (chief complaint) Fluid overload, unspecifiedHyper kalemiaNeuromusc ular dysfunction of bladder, unspecifiedEssen tial (primary) hypertensionChro marisa kidney disease, stage 4 (severe) 9 Mari Walton. [address] [facility], [address] [place] [address], [id number], [place]. tel:[phone] Office/outpat ient Visit, [facility], [address], [address], tel:[phone] [facility] Chronic Kidney Disease (chief complaint) Hypertensi on (chief complaint) Chronic kidney disease, stage 3 (moderate)Fluid overload, unspecifiedHyper kalemiaNeuromusc ular dysfunction of bladder, unspecifiedEssen tial (primary) hypertension 9 Mari Walton. [address] [facility], [address], [id number], [place]. tel:[phone] [facility], [address], [address], tel:[phone] [facility] No Information 9 Mari Walton. [address] [facility], [address] [place] [address], [id number], [place]. tel:[phone] [facility], [address], [place], [address], [place] tel:[phone] [facility] Chronic kidney disease, stage 3 (moderate)Fluid overload, unspecifiedHyper kalemiaNeuromusc ular dysfunction of bladder, unspecifiedEssen tial (primary) hypertension 9 Mari Walton. [address] [facility], [address] [place] [address], [id number], [place]. tel:[phone] Office/outpat ient Visit, [facility], [address] [place] [address], [address], tel:[phone] [facility] Chronic Kidney Disease (chief complaint) Hypertensi on (chief complaint) Chronic kidney disease, stage 3 (moderate)Fluid overload, unspecifiedHyper kalemiaNeuromusc ular dysfunction of bladder, unspecifiedEssen tial (primary) hypertension 8 Mari Walton. [address] [facility], [address] [place] [address], [id number], [place]. tel:[phone] Subsequent [facility], [address] [place] [address], [address], tel:[phone] [facility] Chronic kidney disease, stage 4 (severe)Acute kidney failure, unspecified 8 Angelica Boykin [address] [facility], [address], [id number], [place]. tel:[phone] Referring Provider: Arlen Oshea, [address], [place], [place], [id number]. tel:[phone] Initial [facility], [address] [place] [address], [address], [phone] [facility] Chronic kidney disease, stage 4 (severe)Acute kidney failure, unspecified 8 Angelica Boykin [address] [facility], [address] [place] [address], [id number], [place]. tel:[phone] Referring Provider: Arlen Oshea, [address], [place], [place], [id number]. tel:[phone] [facility], [address] [place] [address], [address], [place] tel:[phone] [facility] Chronic kidney disease, stage 3 (moderate)Fluid overload, unspecifiedHyper kalemiaNeuromusc ular dysfunction of bladder, unspecifiedEssen tial (primary) hypertension 8 Mari Walton. [address] [facility], [address], [place], [place], [id number], [place]. tel:[phone] Office/outpat ient Visit, [facility], [address] [place] [address], [address], [place] tel:[phone] [facility] Athscl heart disease of eek coronary artery w/o ang pctrsAcidosisTyp e 2 diabetes mellitus w diabetic chronic kidney diseaseChronic kidney disease, stage 4 (severe)Essentia l (primary) hypertensionEdem a, unspecified 8 Suzanne Tracy. [address] [place], [place], [id number], [place]. tel:[phone] Office Consultation [facility], [address] [place] [address], [address], [place] tel:[phone] [facility] Athscl heart disease of eek coronary artery w/o ang pctrsAcidosisTyp e 2 diabetes mellitus w diabetic chronic kidney diseaseChronic kidney disease, stage 4 (severe)Essentia l (primary) hypertension 8 Suzanne Tracy. [address] [place], [place], [id number], [place]. tel:[phone] Office/outpat ient Visit, [facility], [address] [place] [address], [place], [address], [place] tel:[phone] [facility] Chronic Kidney Disease (chief complaint) Hypertensi on (chief complaint) Chronic kidney disease, stage 3 (moderate)Fluid overload, unspecifiedHyper kalemiaNeuromusc ular dysfunction of bladder, unspecifiedEssen tial (primary) hypertension 8 Mari Walton. [address] [facility], [address], [id number], . tel:[phone] [facility], [address] [place] [address], [facility], tel: [phone] [facility] Chronic kidney disease, stage 3 (moderate)Fluid overload, unspecifiedHyper kalemiaNeuromusc ular dysfunction of bladder, unspecifiedEssen tial (primary) hypertension 8 Mari Walton. [address] [facility], [address], [address] [place] [address], . tel:[phone] [facility], [address] [place] [address], [facility], tel:[phone] [facility] Chronic kidney disease, stage 3 (moderate)Fluid overload, unspecifiedHyper kalemiaNeuromusc ular dysfunction of bladder, unspecifiedEssen tial (primary) hypertension 8 Mari Walton. [facility], [address], [id number], . tel:[phone] Office/outpat ient Visit, [facility], [address], [facility], tel:[phone] [facility] Chronic Kidney Disease (chief complaint) Hypertensi on (chief complaint) Chronic kidney disease, stage 3 (moderate)Fluid overload, unspecifiedHyper kalemiaNeuromusc ular dysfunction of bladder, unspecifiedEssen tial (primary) hypertension 8 Mari Walton. [address] [facility], [address] [place] [address], [id number], . tel:[phone] [facility], [address], [address], tel:[phone] [facility] Chronic kidney disease, stage 3 (moderate)Fluid overload, unspecifiedHyper kalemiaNeuromusc ular dysfunction of bladder, unspecifiedEssen tial (primary) hypertension 8 Mari Walton. [address] [facility], [address] [place] [address], [id number], [place]. [phone] [facility], [address], [address], tel:[phone] [facility] Chronic kidney disease, stage 3 (moderate)Fluid overload, unspecifiedHyper kalemiaNeuromusc ular dysfunction of bladder, unspecifiedEssen tial (primary) hypertension 8 Mari Walton. [address] [facility], [address], [id number], [place]. tel:[phone] Office/outpat ient Visit, [facility], [address], [address], tel:[phone] [facility] Chronic Kidney Disease (chief complaint) Hypertensi on (chief complaint) Chronic kidney disease, stage 3 (moderate)Fluid overload, unspecifiedHyper kalemiaNeuromusc ular dysfunction of bladder, unspecifiedEssen tial (primary) hypertension 8 Mari Walton. [address] [facility], [address] [place] [address], [id number], [place]. [phone] Office/outpat ient Visit, [facility], [address], [address], tel:[phone] [facility] Chronic Kidney Disease (chief complaint) Hypertensi on (chief complaint) Chronic kidney disease, stage 3 (moderate)Fluid overload, unspecifiedHyper kalemiaNeuromusc ular dysfunction of bladder, unspecifiedEssen tial (primary) hypertension 8 Mari Walton. [address] [facility], [address] [place] [address], [id number], [place]. tel:[phone] Office/outpat ient Visit, [facility], [address], [facility], tel:[phone] [facility] Chronic Kidney Disease (chief complaint) Hypertensi on (chief complaint) Chronic kidney disease, stage 3 (moderate)Fluid overload, unspecifiedHyper kalemiaNeuromusc ular dysfunction of bladder, unspecifiedEssen tial (primary) hypertension 7 Mari Walton. [address] [facility], [address] [place] [address], [id number], [place]. tel:[phone] [facility], [address] [place] [address], [facility], tel:[phone] [facility] Chronic kidney disease, stage 3 (moderate)Fluid overload, unspecifiedHyper kalemiaNeuromusc ular dysfunction of bladder, unspecifiedEssen tial (primary) hypertension 7 Mari Walton. [address] [facility], [address] [place] [address], [id number], [place]. tel:[phone] Office/outpat ient Visit, [facility], [address] [place] [address], [facility], tel:[phone] [facility] Chronic Kidney Disease (chief complaint) Hypertensi on (chief complaint) Chronic kidney disease, stage 3 (moderate)Fluid overload, unspecifiedHyper kalemiaNeuromusc ular dysfunction of bladder, unspecifiedEssen tial (primary) hypertension 7 Mari Walton. [address] [facility], [address], [id number], . tel:[phone] Office/outpat ient Visit, [facility], [address] [place] [address], [address], tel:[phone] [facility] Chronic Kidney Disease (chief complaint) Hypertensi on (chief complaint) Chronic kidney disease, stage 3 (moderate)Fluid overload, unspecifiedHyper kalemiaNeuromusc ular dysfunction of bladder, unspecifiedEssen tial (primary) hypertension 7 Mari Walton. [address] [facility], [address], [id number], [place]. tel:[phone] Office/outpat ient Visit, [facility], [address] [place] [address], [facility], tel:[phone] [facility] Chronic Kidney Disease (chief complaint) Hypertensi on (chief complaint) Chronic kidney disease, stage 3 (moderate)Fluid overload, unspecifiedHyper kalemiaNeuromusc ular dysfunction of bladder, unspecifiedEssen tial (primary) hypertension 6 Mari Walton. [address] [facility], [address] [place] [address], [id number], [place]. tel:[phone] [facility], [address] [place] [address], [address], [place] tel:[phone] [facility] Chronic kidney disease, stage 3 (moderate)Fluid overload, unspecifiedHyper kalemiaNeuromusc ular dysfunction of bladder, unspecifiedEssen tial (primary) hypertension 6 Mari Walton. [address] [facility], [address], [id number], [place]. tel:[phone] [facility], [address] [place] [address], [facility], [place] tel:[phone] [facility] Chronic kidney disease, stage 3 (moderate)Fluid overload, unspecifiedHyper kalemiaNeuromusc ular dysfunction of bladder, unspecifiedEssen tial (primary) hypertension 6 Mari Walton. [address] [facility], [address], [id number], [place]. tel:[phone] [facility], [address] [place] [address], [address], [place] tel: [phone] [facility] Chronic kidney disease, stage 3 (moderate)Fluid overload, unspecifiedHyper kalemiaNeuromusc ular dysfunction of bladder, unspecifiedEssen tial (primary) hypertension 6 Mari Walton. [address] [facility], [address] [place] [address], [id number], [place]. tel:[phone] Office/outpat ient Visit, [facility], [address] [place] [address], [facility], tel: [phone] [facility] Chronic Kidney Disease (chief complaint) Hypertensi on (chief complaint) Chronic kidney disease, stage 3 (moderate)Fluid overload, unspecifiedHyper kalemiaNeuromusc ular dysfunction of bladder, unspecifiedEssen tial (primary) hypertension 6 Mari Walton. [address] [facility], [address], [id number], [place]. tel:[phone] Office/outpat ient Visit, [facility], [address] [place] [address], [facility], tel:[phone] [facility] Chronic Kidney Disease (chief complaint) Hypertensi on (chief complaint) Chronic kidney disease, stage 3 (moderate)Fluid overload, unspecifiedHyper kalemiaNeuromusc ular dysfunction of bladder, unspecifiedEssen tial (primary) hypertension 6 Mari Walton. [address] [facility], [address], [id number], [place]. tel:[phone] Office/outpat ient Visit, [facility], [address] [place] [address], [address], [place] tel:[phone] [facility] Chronic Kidney Disease (chief complaint) Hypertensi on (chief complaint) Chronic kidney disease, stage 3 (moderate)Fluid overload, unspecifiedHyper kalemiaNeuromusc ular dysfunction of bladder, unspecifiedEssen tial (primary) hypertension 2- 5 Mari Walton. [facility], [address], [id number], [place]. [phone] [facility], [address] [place] [address], [address], [phone] [facility] Chronic kidney disease, stage 3 (moderate)Fluid overload, unspecifiedHyper kalemiaNeuromusc ular dysfunction of bladder, unspecifiedEssen tial (primary) hypertension 5 Mari Walton. [address] [place] [address], [address], [id number], [place]. [phone] [facility], [address] [place] [address], [address], tel:[phone] [facility] Chronic kidney disease, Stage III (moderate)Other fluid overloadHyperpot assemiaOther functional disorder of bladderUnspecifi ed essential hypertension 5 Mari Walton. [facility], [address], [id number], [place]. [phone] Office/outpat ient Visit, [facility], [address] [place] [address], [address], tel:[phone] [facility] Chronic Kidney Disease (chief complaint) Hypertensi on (chief complaint) Chronic kidney disease, Stage III (moderate)Other fluid overloadHyperpot assemiaOther functional disorder of bladderUnspecifi ed essential hypertension 5 Mari Walton. [facility], [address], [id number], [place]. tel:[phone] [facility], [address] [place] [address], [address], [place] tel:[phone] [facility] Chronic kidney disease, Stage III (moderate)Other fluid overloadHyperpot assemiaOther functional disorder of bladderUnspecifi ed essential hypertension 5 Mari Walton. [address] [facility], [address], [id number], [place]. tel:[phone] Office/outpat ient Visit, [facility], [address] [place] [address], [address], [place] tel:[phone] [facility] Chronic Kidney Disease (chief complaint) Hypertensi on (chief complaint) Chronic kidney disease, Stage III (moderate)Other fluid overloadHyperpot assemiaOther functional disorder of bladderUnsthe medical center ed essential hypertension 4 Mari Walton. [address] [facility], [address], [id number], [place]. tel:[phone] Office/outpat ient Visit, [facility], [address] [place] [address], [address], tel:[phone] [facility] No Information 4 Mari Walton. [address] [facility], [address], [id number], [place]. tel:[phone] Family History Family Member Type Diagnosis Age At Onset No Information Payers Payer name Insurance type Covered constitution party ID Authoriza tion(s) Medicare [place] [employer] [place] [id number] BS [facility] [id number] Social History Type Description Quantity Date Captured [...] Date Complaint History Of Prese nt Illness Follow Up of ESRD Chronic Kidney Disease The paticassie nt's disease began gradually. The severity of [...] and male gender. Chronic Kidney Disease The paticassie nt's disease began gradually. The severity of [...] gender and hypertension. Chronic Kidney Disease The riley nt's disease [...] rash, urinary frequency, vomiting and weight loss. Hypertension The symptoms beg an gradually. The severity has been described as being mild. Comorbid conditions include: chronic kidney disease. It is currently stable. Context/Risk factors include: age over age 60, high salt intake and male gender. Chronic Kidney Disease The paticassie nt's disease began gradually. The severity of [...] and irregular heartbeat/palpitations. Chronic Kidney Disease The paticassie nt's disease began gradually. The severity of [...] nausea and vomiting. Chronic Kidney Disease The paticassie nt's disease began gradually. The severity of [...] and irregular heartbeat/palpitations. Chronic Kidney Disease The paticassie nt's disease began gradually. The severity of [...] and vomiting. Chronic Kidney Disease The riley chaney's disease began gradually. The severity of symptoms [...] dyspnea, epistaxis, headache, hematuria and irregular heartbeat/palpitations. Instructions Date Instruction Additional Infor rahul Kidney [...] Ch ronic kidney disease, stage 4 (severe) salt restriction Related to Esse ntial (primary) hypertension Monitor for now Related to Hyper kalemia Monitor for now Related to Neuro muscular [...] Ch ronic kidney disease, stage 4 (severe) Avoid ibuprofen [...] Ch ronic kidney disease, stage 4 (severe) salt restricition Related to Flu id overload, unspecified Monitor for now Related to Hyper kalemia Avoid ibuprofen type anti-inflammatory meds, proper hydration Related to Chronic kidney disease, stage 4 (severe) salt restriction Related to Esse ntial (primary) hypertension Monitor for now 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, unspecified Low Potassium Diet Related to Ch [...] ic kidney disease, stage 3 (moderate) Low Potassium [...] Chron ic kidney disease, stage 3 (moderate) avoid nephrotoxions, proper hydration Related to Chronic [...] ic kidney disease, stage 3 (moderate) Low Potassium [...] to Chronic kidney disease, Stage III (moderate) salt restriction Related to Othe r fluid overload salt restriction Related to Unsp ecified essential hypertension Monitor for now Related to Other functional disorder of bladder Low Sodium Diet Related to Chron ic kidney disease, Stage III (moderate) Monitor for now Related to Other functional disorder of bladder salt restriction Related to Unsp ecified essential hypertension Avoid nephrotoxins, proper hydration Related to Chronic kidney disease, Stage III (moderate) Monitor for now Related to Hyper potassemia salt restriction Related to Othe r fluid overload Low Sodium Diet Assessments Type Assessment Date No Information
--- OUTSIDE RECORDS SUMMARY | 2025-06-15 15:42 | XMS_ITS | Continuity of Care Document ---
Author Organization [facility] Address [address] [place] [address] Phone Care Team Providers Care Rib Puller Name Role Phone Jeff Basilio MD Unavailable [...] Diagnoses Date Provider Providers Copied on Encounter [facility], [address], [place], [place], [id number], tel:[phone] [facility] No Information 0- 5 Makris Jeff. [address] [place] [address], [id number], . tel:[phone] [facility], [address], [place], [place], [id number], tel:[phone] [facility] Compression of VeinEnd stage renal disease Jan-0 5 Makris Jeff. [address] [place] [address], [id number], . tel:[phone] Referring Provider: [place], [address] . tel:[phone] [facility], [address] [place] [address], [id number], tel:[phone] [facility] Compression of VeinEnd stage renal disease Jan-0 6 5 Makris Jeff. [address] [place] [address], [id number], . tel:[phone] Referring Provider: Demarcus Palacios, [place], [address] . tel:[phone] [facility], [address], [place], [place], [id number], tel:[phone] [facility] No Information 5 Makris Jeff. [facility] [place], [id number], [place]. tel:[phone] [facility], [address], [place], [place], [id number], tel:[phone] [facility] Compression of VeinEnd stage renal disease 3 Makris Jeff. [address] [place], [place] [address], [id number], [place]. tel:[phone] Referring Provider: Demarcus Palacios, [address], [place], [address] . tel:[phone] [facility], [facility] [place], [id number], tel:[phone] [facility] End stage renal diseaseCompress ion of Vein 3 Makris Jeff. [address] [place], [place] [address], [id number], [place]. tel:[phone] Referring Provider: Connie Crews [address], [place], [address] . tel:[phone] [facility], [facility] [place], [id number], tel:[phone] [facility] End stage renal disease 3 Makris Jeff. [address] [place], [place] [address], [id number], [place]. tel:[phone] Referring Provider: Connie Crews [address], [place], [address] . tel:[phone] [facility], [address] [place], [id number], tel:[phone] [facility] End stage renal disease 3 Makris Jeff. [address] [place], [place] [address]Link [employer]: [place], [id number], [place]. tel:[phone] Referring Provider: Demarcus Palacios, [address], [place], [address] . tel:[phone] [employer], [address] [facility] System[facility] MediaFwd: [place], [id number], tel:[phone] [facility] End stage renal disease 3 Gutierrez Mariano. [address] [place], [place] [address]Fwd: [place], [id number], [place]. tel:[phone] Referring Provider: Demarcus Palacios, [address], [place], [address] . tel:[phone] [facility], [facility] [place], [id number], tel:[phone] [facility] End stage renal disease 3 Gutierrez Mariano. [address] [place], [place] [address]Link [employer]: [place], [id number], [place]. tel:[phone] Referring Provider: Demarcus Palacios, [address] [place], [address] . tel:[phone] [facility], [facility] [place], [id number], tel:[phone] [facility] Compression of VeinEnd stage renal disease 3 Makris Jeff. [address] [place], [place] [address]Link [employer]: [place], [id number], [place]. tel:[phone] Referring Provider: Demarcus Palacios, [address], [place], [address] . tel:[phone] [employer], [address] [place], [place] [address], [id number], tel:[phone] [facility] Compression of VeinEnd stage renal disease 3 Makris Jeff. [address] [place], [place] [address]Link [employer]: [place], [id number], [place]. tel:[phone] Referring Provider: Demarcus Palacios, [address], [place], [address] . tel:[phone] [facility], [address], [place], [place], [id number], tel:[phone] [facility] Compression of VeinEnd stage renal disease 2 Tasha Erazo. [address] [place], [place] [address]Link [employer]: [place], [id number], [place]. tel:[phone] Referring Provider: Connie Crews [address], [place], [address] . tel:[phone] [facility], [address] [place], [place] [address]Link [employer] MediaFwd: [place], [id number], [place] tel:[phone] [facility] End stage renal diseaseCompress ion of Vein 2 Tasha Erazo. [address] [place], [place] [address], [id number], [place]. tel:[phone] Referring Provider: Connie [address], [address] . tel:[phone] [facility], [address], [place], [place], [id number], [place] tel:[phone] [facility] Compression of VeinEnd stage renal disease 2 Gutierrez Mariano. [address] [place], [place] [address], [id number], [place]. tel:[phone] Referring Provider: Demarcus Palacios, [address], [place], [address] . tel:[phone] [facility], [facility] [place], [id number], [place] tel:[phone] [facility] Compression of VeinEnd stage renal disease 2 Gutierrez Mariano. [address] [place], [place] [address], [id number], [place]. tel:[phone] Referring Provider: Connie Crews [address], [place], [address] . tel:[phone] [facility], [address], [place], [place], [address], [place] [facility] End stage renal diseaseCompress ion of Vein Apr- 0 2 Will Flori. [facility] [place], [id number], [place]. tel:[phone] Referring Provider: Cindy Mora, [address], [place], [address]. tel:[phone] [facility], [address] [place] [address]Link [employer]Fwd: [place], [id number], [place] tel:[phone] [facility] End stage renal diseaseCompress ion of Vein 2 Tasha Erazo. [facility] [place], [id number], [place]. tel:[phone] Referring Provider: Cindy Mora, [address] [address], [place], [address]. tel:[phone] [facility], [address] [place], [place] [address]Fwd: [place], [id number], [place] tel:[phone] [facility] Compression of VeinEnd stage renal disease 2 Tasha Erazo. [facility] [place], [id number], [place]. tel:[phone] Referring Provider: Cindy Mora, [address] [facility] [address] [facility], [place], [address]. tel:[phone] [facility], [facility] [place], [id number], [place] tel:[phone] [facility] Compression of VeinEnd stage renal disease 2 Tasha Erazo. [address] [place], [place] [address]Imp[place], [id number], [place]. tel:[phone] Referring Provider: Cindy Mora, [address] [address], [place], [address]. tel:[phone] [facility], [address], [place], [place], [id number], [place] tel:[phone] [facility] Compression of VeinEnd stage renal disease Jan- 2 Tasha Erazo. [address], [place], [id number], [place]. tel:[phone] Referring Provider: Cindy Mora, [address], [place], [address]. tel:[phone] [facility], [address], [place], [place], [id number], [place] tel:[phone] [facility] No Information 2 Makris Jeff. [address] [place], [place] [address]Link [employer]: [place], [id number], [place]. tel:[phone] [facility], [address] [place] [address], [id number], [place] tel:[phone] [facility] Compression of VeinEnd stage renal disease 1 Tasha Erazo. [address] [place] [address], [id number], [place]. tel:[phone] Referring Provider: Cindy Mora, [address] [facility] [address], [place], [address]. tel:[phone] [employer] [facility], [address] [place], [place] [address]Link To MediaFwd: [place], [id number], [place] tel:[phone] [facility] Compression of VeinEnd stage renal disease 1 Gutierrez Mariano. [address] [place] [address], [id number], [place]. tel:[phone] Referring Provider: Demarcus Palacios, [address] , [place], [address] . tel:[phone] [facility], [address] [place], [place] [address]Fwd: [place], [id number], [place] tel:[phone] [facility] Compression of VeinEnd stage renal disease 1 Makris Jeff. [address] [place] [address], [id number], [place]. tel:[phone] Referring Provider: Connie Crews [facility], [place], [address] . tel:[phone] [employer], [address], [place], [id number], tel:[phone] [facility] End stage renal disease 1 Makris Jeff. [address], [place], [id number], [place]. tel:[phone] Referring Provider: Connie Crews E [facility], [place], [address] . tel:[phone] Office/outpa tient visit est Ilana JIANG, [address] [place] [address], [id number], tel:[phone] [facility] 0 Tasha Erazo. [address] [place] [address], [id number], [place]. tel:[phone] Referring Provider: [place], [address] . tel:[phone] [employer] [employer], [address] [place] [address], [id number], tel:[phone] [facility] End stage renal disease 0 Gutierrez Mariano. [address] [place] [address], [id number], . tel:[phone] Referring Provider: Connie Crews E [facility], [place], [address] . tel:[phone] [facility], [address] [place] [address], [id number], tel:[phone] [facility] Stricture of ArteryEnd stage renal disease 0 Tasha Erazo. [address] [place] [address], [id number], . tel:[phone] Referring Provider: Demarcus Palacios, [address] [place], [address] . tel:[phone] [facility], [address], [place], [id number], tel:[phone] [facility] Stricture of ArteryEnd stage renal disease 0 Makris Jeff. [address] [place] [address], [id number], [place]. tel:[phone] Referring Provider: Demarcus Palacios, [address] [place], [address] . tel:[phone] [facility], [address] [place] [address], [id number], tel:[phone] [facility] Stricture of ArteryEnd stage renal diseaseStrictur e of ArteryEnd stage renal disease 0 Tasha Erazo. [address] [place] [address], [id number], [place]. tel:[phone] Referring Provider: Cindy Mora, [address], [address]. tel:[phone] [facility], [address] [place] [address], [id number], [place] tel:[phone] [facility] No Information 0 Makris Jeff. [address] [place] [address], [id number], [place]. tel:[phone] As per patient privacy policy some of the clinical information may not be visible. Family History Family Member Type Diagnosis Age At Onset Father Problem (finding) Renal disease Payers Payer name Insurance type Covered democrat ID Authoriza tion(s) Medicare [place] [id number] [facility] [id number] Social History Type Description Quantity Date Captured Comments Sex Male Smoking Status No Information Gender Identity Male Chief Complaint And Reason For Visit No Information Reason For Referral Reason For Referral No Information Plan Of Treatment Date Type Action Status Appointment Harpreet Ponce// RFF *MCR* CO2* From Trans. Pt BOOKED Future Order: Radiology Order Up per Body Flouroscopy ([id number]), Ordered on: Ordered Future Order: Radiology Order Up per Body Flouroscopy ([id number]), Ordered on: Ordered Future Order: Radiology Order Up per Body Flouroscopy ([id number]), Ordered on: Ordered Future Order: Radiology Order Up per Body Flouroscopy ([id number]), Ordered on: Ordered Future Order: Radiology Order Up per Body Flouroscopy ([id number]), Ordered on: Ordered Future Order: Radiology Order Up per Body Flouroscopy ([id number]), Ordered on: Ordered Future Order: Radiology Order Up per Body Flouroscopy ([id number]), Ordered on: Ordered Future Order: Radiology Order Up per Body Flouroscopy ([id number]), Ordered on: Ordered Future Order: Radiology Order Up per Body Flouroscopy ([id number]), Ordered on: Ordered Future Order: Radiology Order Up per Body Flouroscopy ([id number]), Ordered on: Ordered Future Order: Radiology Order Up per Body Flouroscopy ([id number]), Ordered on: Ordered Future Order: Radiology Order Up per Body Flouroscopy ([id number]), Ordered on: Ordered Future Order: Radiology Order Up per Body Flouroscopy ([id number]), Ordered on: Ordered Future Order: Radiology Order Up per Body Flouroscopy ([id number]), Ordered on: Ordered Future Order: Radiology Order Up per Body Flouroscopy ([id number]), Ordered on: Ordered Future Order: Radiology Order Up per Body Flouroscopy ([id number]), Ordered on: Ordered Future Order: Radiology Order Up per Body Flouroscopy ([id number]), Ordered on: Ordered History Of Present Illness Encounter Date Complaint History Of Prese nt Illness No Information Functional Status Date Functional Assessmen t No Information Instructions Date Instruction Additional Infor mation No Information Assessments Type Assessment Date No Information Patient Care Teams Name Effective Dates (start - stop) Status Members No Information
[2025-06-15 15:50] VITALS: BP 114/72; PULSE 83; RESP 18; TEMP 36.6; O2SAT 96
--- NOTE | 2025-06-15 16:11 | ED_ITS ---
HPI - Skin/Abscess/Foreign Bdy General Chief complaint: Skin/Abscess/Foreign Body Stated complaint: cellulitis Time Seen by Provider: 06/15/25 15:55 Source: patient Mode of arrival: ambulatory Limitations: no limitations History of Present Illness HPI narrative: Harpreet is a 70-year-old male patient presenting to the clinic today with complaints right leg pain, swelling, and redness. He reports symptoms started yesterday. Denies any fevers or chills but has had fatigue. Denies any chest pain or shortness of breath. Was working on the [employer] a few days prior and got a cut to the anterior leg from a tree limb. No redness or swelling around the wound. No history of cellulitis in the past. Does have history of coronary artery disease, peripheral vascular disease, aortic arthrosclerosis, and hypertension. He is a former smoker. No recent travel or surgery.. Related Data Home Medications ?Medication ?Instructions ?Recorded ?Confirmed ?Last Taken ?Type aspirin 81 mg capsule 81 mg PO DAILY 06/15/22 02/04/25 Unknown History hydrochlorothiazide 25 mg tablet 25 mg PO DAILY 07/29/22 02/04/25 Unknown History amlodipine 10 mg tablet 10 mg PO DAILY 05/06/23 02/04/25 Unknown History metoprolol succinate 100 mg 100 mg PO DAILY 05/06/23 02/04/25 Unknown History tablet,extended release 24 hr rosuvastatin 40 mg tablet 40 mg PO DAILY 05/06/23 02/04/25 Unknown History Allergies Allergy/AdvReac Type Severity Reaction Status Date / Time Sulfa (Sulfonamide AdvReac Unknown Nausea Verified 06/15/25 15:50 Antibiotics) Review of Systems Review of Systems: Pertinent positives per HPI. Patient denies any fever, chills, rash, headache, visual changes, dizziness, cough, runny nose, sore throat, shortness of breath, chest pain, palpitations, nausea, vomiting, diarrhea, constipation, abdominal pain, or any urinary issues. [facility] Past Medical History Medical History Nicotine dependence, cigarettes, in remission Atherosclerosis of aorta Occlusion and stenosis of bilateral carotid arteries Pure hypercholesterolemia, unspecified Atherosclerotic heart disease of [place] coronary artery without angina pectoris Essential (primary) hypertension Family History Family History Father Diabetes mellitus High cholesterol Cancer Sibling Diabetes mellitus Father Hypertension Mother High cholesterol Heart disease Hypertension Sibling High cholesterol Heart disease Hypertension Cancer Social History Social History Smoking packs per day: 1.5 Smoking cigarettes per day: 30.0 Years smoked: 52 Smoking pack-years: 78.00 Smoking status: Former smoker Tobacco type: cigars Second hand tobacco smoke exposure: No Smoking end date: 04/09/22 Alcohol intake: current Drinks per week: 10 Substance use: never Substance use type: does not use Do You Feel Safe in your Home?: Yes Lack of Transportation: No Lack of Food: Never True Current Housing: I Have Housing Concerned About Future Housing: No Difficulty Paying Gas/Electric Bills: No Difficulty Paying for Meds: No Currently Unemployed: No Education: High School Diploma/GED Difficulty w/ Childcare or Family Care: No Living arrangements: with family Occupation/Education: retired Gender identity (if verbalized by the patient): Male Sexual Orientation (if Verbalized by the Patient): Straight or Heterosexual Spiritual care concerns: No Comments At the time of my signature, I reviewed and agree with the nursing past medical, surgical, social, and family history. There is no relevant family history pertinent to the patient complaint. Exam Narrative: General: Well-developed, well nourished, in no apparent distress Head: Normocephalic, atraumatic. Cardio: Regular rate and rhythm, s1 and s2 normal, no murmur appreciated. Resp: Clear to auscultation bilaterally, no rhonchi, rales, wheezing or rubs. Musculoskeletal: No deformity, right lower extremity swelling 1+ edema, non circumferential redness to the posterior calf/lower leg with erythema, positive Homans sign, ttp over the posterior lower calf/leg, pain worse with ambulation, grossly normal range of motion, muscle strength strong and equal, pedal pulse strong, no cyanosis, normal gait and station Course Course Emergency Course: Portions of this record may have been created with voice recognition software. Level of Care: Express Care Visit Vital Signs Vital signs: Vital Signs Temperature 36.6 C 06/15/25 15:50 Pulse Rate 83 06/15/25 15:50 Respiratory Rate 18 06/15/25 15:50 Blood Pressure 114/72 06/15/25 15:50 Pulse Oximetry 96 06/15/25 15:50 Oxygen Delivery Room Air 06/15/25 15:50 Temperature 36.6 C 06/15/25 15:50 Pulse Rate 83 06/15/25 15:50 Respiratory Rate 18 06/15/25 15:50 Blood Pressure 114/72 06/15/25 15:50 Pulse Oximetry 96 06/15/25 15:50 Oxygen Delivery Room Air 06/15/25 15:50 Vital signs reviewed Transfer Transfered to: [facility] Transportation: Other (Private car) Transfer rationale: Right lower leg swelling, pain, redness- + hardy sign r/o dvt vs cellulitis Accepting physician: Dr. Ruelas Transfer comments: Private car MDM - Skin/Abscess/Foreign Bdy MDM Narrative Medical decision making narrative: At the time of visit patient is resting comfortably on the exam table. Patient appears to be nontoxic. Patient is having right lower extremity swelling with pain and redness over the lower calf and leg. 1+ pitting edema in the right leg. Positive Homans sign, area is warm to touch. Redness is not circumferential. No fevers, chills, body aches but does feel fatigued. Denies any chest pain or shortness of breath. Patient has history of CAD, quadruple bypass, carotid stenosis/occlusion, peripheral vascular disease, hyperlipedemia, and hypertension. Takes baby aspirin daily Plan: Recommend transfer to the ER to rule out DVT versus cellulitis. Patient agrees to go to [facility] emergency room for further evaluation. Contacted Dr. Ruelas and report was given for continuity of care and he accepts patient for transfer. Patient to be transferred via private car. Differential Diagnosis Differential diagnosis: Likely abscess of skin or subcutaneous tissue, viral exanthem, dermatophytosis, urticaria, herpes zoster, allergic reaction to drug, cellulitis, eczema, insect bites, impetigo and contact dermatitis Discharge Plan Discharge Clinical Impression: Pain and swelling of right lower extremity Patient Disposition: Acute Care Hospital Condition: Stable Patient Language: Yakut Prescriptions: No Action triamcinolone acetonide 0.1 % cream 1 applic topical BID Qty: 30 0RF amlodipine 10 mg tablet 10 mg PO DAILY metoprolol succinate 100 mg tablet extended release 24 hr 100 mg PO DAILY rosuvastatin 40 mg tablet 40 mg PO DAILY aspirin 81 mg Capsule 81 mg PO DAILY hydrochlorothiazide 25 mg Tablet 25 mg PO DAILY ezetimibe 10 mg tablet 10 mg PO DAILY Qty: 90 1RF lisinopril 40 mg tablet See Rx Instructions .ROUTE .COMPLEX Qty: 100 2RF Dose Instruction: TAKE 1 TABLET BY MOUTH ONCE DAILY Rx Instructions: TAKE 1 TABLET BY MOUTH ONCE DAILY Follow-up/Referrals: Andrés Meeks MD [Primary Care Provider] - Time of Disposition: 16:17 Quality NIHSS Nursing Documentation ED NIHSS nursing documentation: reviewed/agree
== END 2025-06-15 16:16 | disposition short-term general hospital (02) ==
PROVIDERS: Emergency Provider Nurse Practitioner Family; PCP Family Medicine
DX: M79.661 Pain in right lower leg (principal); R22.41 Localized swelling, mass and lump, right lower limb; Z87.891 Personal history of nicotine dependence; I70.0 Atherosclerosis of aorta; I65.23 Occlusion and stenosis of bilateral carotid arteries; I73.9 Peripheral vascular disease, unspecified; I10 Essential (primary) hypertension; I25.10 Atherosclerotic heart disease of native coronary artery without angina pectoris; E78.00 Pure hypercholesterolemia, unspecified
CPT/HCPCS: 99212; G0463

== ENCOUNTER 2025-06-15 16:35 | Emergency (ER) | payer MEDICARE, SELFPAY ==
--- NOTE | ~2025-06-15 | US_ITS ---
Duplex Sonography of the right extremity: Indication: Swelling Findings: Sagittal and transverse B-mode images as well as color-flow imaging were performed on the r ight femoral and popliteal veins. B-mode examination was done without and with compression in the tr ansverse plane. There is good visualization of the common femoral, proximal profunda femoral, superf icial femoral, greater saphenous, and popliteal veins. Normal flow was seen on color-flow imaging. N ormal compressibility was demonstrated. Visualized calf veins are also patent. Impression: No evidence of deep vein thrombosis involving the right lower extremity. Reviewed, dictated and finalized at location M. Impression: No evidence of deep vein thrombosis involving the right lower extremity.
--- OUTSIDE RECORDS SUMMARY | 2025-06-15 16:37 | XMS_ITS | Continuity of Care Document ---
Author Organization [facility] [place] Address [address] [address] Phone Care Team Providers Care Adjustment Clerk Name Role Phone Moses Ruiz MD Unavailable [...] Date Provider Providers Copied on Encounter Subsequent [facility] Care [facility], [address] [place] [address], [address], tel:[phone] [facility] Acute kidney failure, unspecifiedChron ic kidney disease, stage 4 (severe)Type 2 diabetes mellitus with diabetic chronic kidney diseaseImmunodef iciency, unspecifiedEncou nter for aftercare following kidney transplantOther recurrent and persistent immunoglobulin A nephropathy Jul- 4 Sara DEUTSCH Moses. [address] [facility], [address], [place], [id number], [place]. tel:[phone] Subsequent [facility], [address] [place] [address], [address], tel:[phone] [facility] Chronic kidney disease, stage 4 (severe)Type 2 diabetes mellitus with diabetic chronic kidney diseaseKidney transplant statusImmunodefi ciency, unspecifiedOther recurrent and persistent immunoglobulin A nephropathyAcute kidney failure, unspecified Sep-2 4 Sara Lopes. [address] [facility], [address] [place] [address], [id number], [place]. tel:[phone] [facility] Care [facility], [address] [place], [address], tel:[phone] [facility] Acute kidney failure, unspecifiedChron ic kidney disease, stage 4 (severe)Type 2 diabetes mellitus with diabetic chronic kidney diseaseImmunodef iciency, unspecifiedEncou nter for aftercare following kidney transplantOther recurrent and persistent immunoglobulin A nephropathy Sep-2 4 Sara Lopes. [address] [place] [address], [address] [place] [address], [id number], [place]. tel:[phone] [facility], [address] [place] [address], [address], tel:[phone] [facility] Other disorders of phosphorus metabolismEnd stage renal diseaseDependenc e on renal dialysis 4 Sara Lopes. [address] [place] [address], [address], [id number], [place]. tel:[phone] [facility], [address] [place] [address], [address], tel:[phone] [facility] Other disorders of phosphorus metabolismEnd stage renal diseaseDependenc e on renal dialysis 3 Suzanne Leet. [address], [place], [place], [id number], [place]. tel:[phone] [facility], [address] [place] [address], [address], tel:[phone] [facility] Other disorders of phosphorus metabolismEnd stage renal diseaseDependenc e on renal dialysis 3 Sara Lopes. [address] [facility], [address] [place] [address], [id number], [place]. tel:[phone] [facility], [address] [place] [address], [address] [place] [address] tel:[phone] [facility] Other disorders of phosphorus metabolismEnd stage renal diseaseDependenc e on renal dialysis 3 Suzanne Tracy. [address] [place], [id number], [place]. tel:[phone] [facility], [address] [place] [address], [facility], tel:[phone] [facility] Other disorders of phosphorus metabolismEnd stage renal diseaseDependenc e on renal dialysis 3 Sara Lopes. [address] [place] [address], [address] [place] [address], [id number], [place]. tel:[phone] [facility] 7 DAY [facility], [address] [place] [address], [facility], tel:[phone] [facility] No Information 3 Josue Garcia. [address] [facility], [place], [place], [id number], [place]. tel:[phone] [facility], [address] [place] [address], [facility], tel:[phone] [facility] End stage renal diseaseHypertens shawn chronic kidney disease with stage 5 chronic kidney disease or end stage renal diseaseType 2 diabetes mellitus with diabetic chronic kidney diseaseOther disorders of phosphorus metabolismDepend ence on renal dialysis 3 Sara Lopes. [address] [facility], [address], [place], [place], [id number], [place]. tel:[phone] [facility], [address] [place] [address], [facility], tel:[phone] [facility] Other disorders of phosphorus metabolismEnd stage renal diseaseDependenc e on renal dialysis 3 Suzanne Tracy. [address] [place], [id number], [place]. tel:[phone] [facility], [address] [place] [address], [facility], tel:[phone] [facility] End stage renal diseaseDependenc e on renal dialysis 3 Sara Lopes. [address] [place] [address], [address], [id number], . tel:[phone] [facility], [address] [place] [address], [facility], tel:[phone] [facility] End stage renal diseaseDependenc e on renal dialysis 3 Sara Lopes. [address] [place] [address], [address], [id number], . tel:[phone] [facility], [address] [place] [address], [facility], tel:[phone] [facility] End stage renal diseaseDependenc e on renal dialysis 3 Suzanne Tracy. [address] [place], [id number], [place]. tel:[phone] [facility], [address] [place] [address], [facility], tel:[phone] [facility] End stage renal diseaseDependenc e on renal dialysis 3 Sara Lopes. [address] [place] [address], [address], [id number], . tel:[phone] [facility], [address] [place] [address], [facility], tel:[phone] [facility] No Information 3 Suzanne Wu [address] [place], [place], [id number], [place]. tel:[phone] [facility], [address] [place] [address], [facility], tel:[phone] [facility] End stage renal diseaseDependenc e on renal dialysis 3 Suzanne Tracy. [address] [place], [place], [id number], . tel:[phone] [facility], [address] [place] [address], [facility], tel:[phone] [facility] End stage renal diseaseDependenc e on renal dialysis 3 Abby [place]. [address] [place], [place], [id number], . tel:[phone] [facility], [address] [place] [address], [address] [place] [address] tel:[phone] [facility] End stage renal diseaseDependenc e on renal dialysis 3 Sara Lopes. [address] [place] [address], [address], [id number], . tel:[phone] [facility], [address] [place] [address], [facility], tel:[phone] [facility] End stage renal diseaseDependenc e on renal dialysis 2 Abby [place]. [address] [place], [place], [id number], . tel:[phone] [facility], [address] [place] [address], [facility], tel:[phone] [facility] End stage renal diseaseDependenc e on renal dialysis 2 Suzanne Tracy. [address] [place], [place], [id number], . tel:[phone] [facility], [address] [place] [address], [facility], tel:[phone] [facility] End stage renal diseaseDependenc e on renal dialysis 2 Abby Watt [address], [place], [place], [id number], [place]. tel:[phone] [facility], [address] [place] [address], [address], tel:[phone] [facility] End stage renal diseaseDependenc e on renal dialysis 2 Suzanne Wu [address] [place], [address], [place]. tel:[phone] [facility], [address] [place] [address], [address], tel:[phone] [facility] End stage renal diseaseDependenc e on renal dialysis 2 Abby [place]. [address], [place], [id number], [place]. tel:[phone] [facility], [address] [place] [address], [address], tel:[phone] [facility] End stage renal diseaseDependenc e on renal dialysis 2 Suzanne Wu [address] [place], [address], [place]. tel:[phone] [facility], [address] [place] [address], [address], tel:[phone] [facility] End stage renal diseaseDependenc e on renal dialysis 2 Abby [place]. [address], [place], [place], [address], [place]. tel:[phone] [facility], [address] [place] [address], [address], tel:[phone] [facility] End stage renal diseaseDependenc e on renal dialysis 2 Suzanne Wu [address] [place], [id number], [place]. [phone] [facility], [address] [place] [address], [address], tel:[phone] [facility] End stage renal diseaseDependenc e on renal dialysis 2 Abby Watt [address], [facility], [place], [place], [address], [place]. tel:[phone] [facility], [address] [place] [address], [address], tel:[phone] [facility] End stage renal diseaseDependenc e on renal dialysis 2 Suzanne Wu [address] [place], [address], [place]. tel:[phone] [facility], [address] [place] [address], [address], tel:[phone] [facility] End stage renal diseaseDependenc e on renal dialysis 2 Abby [place]. [address], [place], [place], [address], [place]. tel:[phone] [facility], [address] [place] [address], [address], [phone] [facility] End stage renal diseaseType 2 diabetes mellitus with diabetic chronic kidney diseaseDependenc e on renal dialysisEssentia l (primary) hypertensionShor tness of breath 2 Suzanne Wu [address], [place], [place], [id number], [place]. [phone] [facility], [address] [place] [address], [address], [place] tel:[phone] [facility] End stage renal diseaseDependenc e on renal dialysis 2 Suzanne Wu [address] [place], [address], [place]. tel:[phone] [facility], [address] [place] [address], [address], [place] tel:[phone] [facility] End stage renal diseaseDependenc e on renal dialysis 1 Abby Watt [address], [place], [address], [place]. tel: [facility], [address] [place] [address], [address], [place] tel: [phone] [facility] End stage renal diseaseDependenc e on renal dialysis 1 Abby Watt [address], [place], [id number], [place]. tel: [facility], [address] [place] [address], [address], tel: [phone] [facility] End stage renal diseaseDependenc e on renal dialysis 1 Suzanne Wu [address] [place], [address], [place]. tel: [facility], [address] [place] [address], [address], tel:[phone] [facility] End stage renal diseaseDependenc e on renal dialysis 1 Abby [place]. [address], [place], [address], [place]. tel: [facility], [address] [place] [address], [address], [place] tel:[phone] [facility] End stage renal diseaseDependenc e on renal dialysis 1 Suzanne Wu [address] [place], [address], [place]. tel: [facility], [address] [place] [address], [address], [place] tel:[phone] [facility] End stage renal diseaseDependenc e on renal dialysis 1 Abby hWite. [address] [place], [address], . tel:[phone] [facility], [address] [place] [address], [address], tel:[phone] [facility] End stage renal diseaseDependenc e on renal dialysis 1 Suznane Wu [address] [place], [address], [place]. tel:[phone] [facility], [address] [place] [address], [address], tel:[phone] [facility] End stage renal diseaseDependenc e on renal dialysis 1 Abby [place]. [address] [place], [id number], [place]. tel:[phone] [facility], [address] [place] [address], [address], tel:[phone] [facility] End stage renal diseaseDependenc e on renal dialysis 1 Suzanne Wu [address] [place], [address], [place]. tel:[phone] [facility], [address], [address], tel:[phone] [facility] End stage renal diseaseDependenc e on renal dialysis 1 Abby Watt [address] [place], [address], [place]. tel:[phone] [facility], [address] [place] [address], [address], tel:[phone] [facility] End stage renal diseaseDependenc e on renal dialysis 1 Suzanne Wu [address], [place], [place], [address], [place]. tel:[phone] [facility], [facility] [address] [place] [address], [address], tel:[phone] [facility] End stage renal diseaseDependenc e on renal dialysis 0 1 Abby [place]. [address] [facility] [place], [address], [place]. tel:[phone] [facility], [facility] [address] [place] [address], [address], [place] tel:[phone] [facility] End stage renal diseaseDependenc e on renal dialysis 0 Suzanne Tracy. [address] [place], [address], [place]. tel:[phone] [facility], [address] [place] [address], [address], tel:[phone] [facility] End stage renal diseaseDependenc e on renal dialysis 0 Abby [place]. [address], [place], [id number], [place]. tel:[phone] [facility], [address] [place] [address], [address], tel:[phone] [facility] End stage renal diseaseDependenc e on renal dialysis Aug- 0 Suzanne Wu [address] [place], [address], [place]. tel:[phone] [facility], [address] [place] [address], [address], [place] tel:[phone] [facility] End stage renal diseaseDependenc e on renal dialysis Sep-0 0 Abby Watt [address], [place], [address], [place]. tel:[phone] [facility], [address], [place], [address], [place] tel:[phone] [facility] End stage renal diseaseDependenc e on renal dialysis 0 Suzanne Tracy. [address] [facility], [place], [place], [id number], [place]. tel:[phone] Initial Hospital Care [facility], [address] [place], [place], [address], [place] tel:[phone] [facility] End stage renal diseaseEssential (primary) hypertensionDiar daphne, unspecifiedShort ness of breathDependence on renal dialysis 0 Connie John. [address], [address], [place], [address], [place]. tel:[phone] Referring Provider: Arlen Oshea, [address] [place] [address] [address], [place], [place], [id number]. tel:[phone] [facility], [address] [place], [address], [place] tel:[phone] [facility] End stage renal diseaseEssential (primary) hypertensionDepe ndence on renal dialysis 0 Connie John. [address], [address], [place], [address], [place]. tel:[phone] Referring Provider: Arlen Oshea, [address] [place] [address] Drive [address], [place], [place], [address]. tel:[phone] [facility], [address] [place], [place], [address], [place] tel:[phone] [facility] End stage renal diseaseEssential (primary) hypertensionDiar daphne, unspecifiedShort ness of breathDependence on renal dialysis 0 Connie John. [address], [address], [place], [address], [place]. tel:[phone] Referring Provider: Arlen Oshea, [address] [facility] [address], [place], [place], [address]. tel:[phone] [facility], [facility] [address] [place] [address], [address], tel:[phone] [facility] Follow Up of ESRD (chief complaint) Type 2 diabetes mellitus w diabetic chronic kidney diseaseEnd stage renal disease 0 Suzanne Wu [address] [place], [place], [address], [place]. tel:[phone] [facility], [address] [place] [address], [address], tel:[phone] [facility] Dialysis End stage renal diseaseDependenc e on renal dialysis 0 Suzanne Wu [address] [place], [address], [place]. tel:[phone] [facility], [address] [place] [address], [address], [place] tel:[phone] [facility] End stage renal diseaseDependenc e on renal dialysis 0 Abby Watt [address], [facility], [place], [place], [address], [place]. tel:[phone] [facility], [address] [place] [address], [address], tel:[phone] [facility] End stage renal diseaseDependenc e on renal dialysis 0 Suzanne Wu [address] [place], [address], [place]. tel:[phone] [facility], [facility] [address] [place] [address], [address], tel:[phone] [facility] End stage renal diseaseDependenc e on renal dialysis 0 Abby Watt [address], [place], [place], [address], [place]. tel:[phone] [facility], [address] [place] [address], [address], tel:[phone] [facility] End stage renal diseaseDependenc e on renal dialysis 0 Suzanne Wu [address] [place], [place], [address], [place]. tel:[phone] [facility], [address] [place] [address], [address], tel:[phone] [facility] End stage renal diseaseDependenc e on renal dialysis 0 Abby [place]. [address] [facility], [facility], [place], [place], [address], [place]. tel:[phone] [facility], [address] [place] [address], [address], tel:[phone] [facility] End stage renal diseaseType 2 diabetes mellitus w diabetic chronic kidney diseaseEssential (primary) hypertensionGout due to renal impairment, right elbowGout due to renal impairment, right wristDependence on renal dialysis 0 Suzanne Wu [address] [place], [place], [address], [place]. tel:[phone] [facility], [address] [place] [address], [address], tel:[phone] [facility] End stage renal diseaseGout due to renal impairment, right elbowGout due to renal impairment, right wristType 2 diabetes mellitus w diabetic chronic kidney diseaseEssential (primary) hypertensionDepe ndence on renal dialysis 0 Suzanne Wu [address] [place], [place], [address], [place]. tel:[phone] [facility], [address] [place] [address], [address], tel:[phone] [facility] End stage renal diseaseDependenc e on renal dialysis 0 Abby [place]. [address] [facility], [place], [place], [address], [place]. [phone] Office/outpat ient Visit, Est [facility], [address], [facility], tel:[phone] [facility] Chronic Kidney Disease (chief complaint) Hypertensi on (chief complaint) Chronic kidney disease, stage 4 (severe)Fluid overload, unspecifiedHyper kalemiaNeuromusc ular dysfunction of bladder, unspecifiedEssen tial (primary) hypertension 0 Mari Walton. [address] [place] [address], [id number], [place]. [phone] [facility], [address] [place] [address], [facility], tel:[phone] [facility] Chronic kidney disease, stage 4 (severe)Fluid overload, unspecifiedHyper kalemiaNeuromusc ular dysfunction of bladder, unspecifiedEssen tial (primary) hypertension 0 Mari Walton. [address] [place] [address], [id number], [place]. tel:[phone] [facility], [address] [place] [address], [address], tel:[phone] [facility] Chronic kidney disease, stage 4 (severe)Fluid overload, unspecifiedHyper kalemiaNeuromusc ular dysfunction of bladder, unspecifiedEssen tial (primary) hypertension 9 Mari Walton. [facility], [address], [id number], [place]. [phone] Office/outpat ient Visit, [facility], [address] [place] [address], [facility], tel:[phone] [facility] Chronic Kidney Disease (chief complaint) Hypertensi on (chief complaint) Chronic kidney disease, stage 4 (severe)Fluid overload, unspecifiedHyper kalemiaNeuromusc ular dysfunction of bladder, unspecifiedEssen tial (primary) hypertension 9 Mari Walton. [address] [facility], [address] [place] [address], [id number], [place]. tel:[phone] Office/outpat ient Visit, Est [facility], [address] [place] [address], [address], tel:[phone] [facility] Chronic Kidney Disease (chief complaint) Hypertensi on (chief complaint) Chronic kidney disease, stage 4 (severe)Fluid overload, unspecifiedHyper kalemiaNeuromusc ular dysfunction of bladder, unspecifiedEssen tial (primary) hypertension 9 Mari Walton. [address] [facility], [address] [place] [address], [id number], [place]. tel:[phone] Office/outpat ient Visit, [facility], [address] [place] [address], [address], tel:[phone] [facility] Chronic Kidney Disease (chief complaint) Hypertensi on (chief complaint) Chronic kidney disease, stage 4 (severe)Fluid overload, unspecifiedHyper kalemiaNeuromusc ular dysfunction of bladder, unspecifiedEssen tial (primary) hypertension 9 Mari Walton. [address] [facility], [address] [place] [address], [id number], [place]. [phone] Office/outpat ient Visit, [facility], [address] [place] [address], [address], tel:[phone] [facility] Chronic Kidney Disease (chief complaint) Hypertensi on (chief complaint) Chronic kidney disease, stage 4 (severe)Fluid overload, unspecifiedHyper kalemiaNeuromusc ular dysfunction of bladder, unspecifiedEssen tial (primary) hypertension 9 Mari Walton. [address] [facility], [address], [id number], [place]. tel:[phone] [facility], [address] [place] [address], [facility], tel:[phone] [facility] Chronic kidney disease, stage 4 (severe)Fluid overload, unspecifiedHyper kalemiaNeuromusc ular dysfunction of bladder, unspecifiedEssen tial (primary) hypertension 9 Mari Walton. [address] [facility], [address] [place] [address], [id number], [place]. tel:[phone] [facility], [address], [facility], tel:[phone] [facility] Chronic kidney disease, stage 4 (severe)Fluid overload, unspecifiedHyper kalemiaNeuromusc ular dysfunction of bladder, unspecifiedEssen tial (primary) hypertension 9 Mari Walton. [address] [facility], [address] [place] [address], [id number], [place]. tel:[phone] Office/outpat ient Visit, [facility], [address], [facility], tel:[phone] [facility] Chronic Kidney Disease (chief complaint) Hypertensi on (chief complaint) Chronic kidney disease, stage 4 (severe)Fluid overload, unspecifiedHyper kalemiaNeuromusc ular dysfunction of bladder, unspecifiedEssen tial (primary) hypertension 9 Mari Walton. [address] [facility], [address], [id number], [place]. tel:[phone] [facility], [address], [facility], tel: [phone] [facility] Chronic kidney disease, stage 4 (severe)Fluid overload, unspecifiedHyper kalemiaNeuromusc ular dysfunction of bladder, unspecifiedEssen tial (primary) hypertension 9 Mari Walton. [address] [facility], [address], [id number], [place]. tel:[phone] Office/outpat ient Visit, [facility], [address] [place] [address], [address], tel:[phone] [facility] Chronic Kidney Disease (chief complaint) Hypertensi on (chief complaint) Fluid overload, unspecifiedHyper kalemiaNeuromusc ular dysfunction of bladder, unspecifiedEssen tial (primary) hypertensionChro marisa kidney disease, stage 4 (severe) 9 Mari Walton. [address] [facility], [address] [place] [address], [id number], [place]. tel:[phone] Office/outpat ient Visit, [facility], [address], [address], tel:[phone] [facility] Chronic Kidney Disease (chief complaint) Hypertensi on (chief complaint) Chronic kidney disease, stage 3 (moderate)Fluid overload, unspecifiedHyper kalemiaNeuromusc ular dysfunction of bladder, unspecifiedEssen tial (primary) hypertension 9 Mari Walton. [address] [facility], [address], [place], [id number], [place]. tel:[phone] [facility], [address], [address], tel:[phone] [facility] No Information 9 Mari Walton. [address] [facility], [address] [place] [address], [id number], [place]. tel:[phone] [facility], [address] [place], [address], [place] tel:[phone] [facility] Chronic kidney disease, stage 3 (moderate)Fluid overload, unspecifiedHyper kalemiaNeuromusc ular dysfunction of bladder, unspecifiedEssen tial (primary) hypertension 9 Mari Walton. [address] [facility], [address] [place] [address], [id number], [place]. tel:[phone] Office/outpat ient Visit, [facility], [address] [place] [address], [address], tel:[phone] [facility] Chronic Kidney Disease (chief complaint) Hypertensi on (chief complaint) Chronic kidney disease, stage 3 (moderate)Fluid overload, unspecifiedHyper kalemiaNeuromusc ular dysfunction of bladder, unspecifiedEssen tial (primary) hypertension 8 Mari Walton. [address] [facility], [address] [place] [address], [id number], [place]. tel:[phone] Subsequent [facility], [address] [place] [address], [address], tel:[phone] [facility] Chronic kidney disease, stage 4 (severe)Acute kidney failure, unspecified 8 Angelica Boykin [address] [facility], [address], [id number], [place]. tel:[phone] Referring Provider: Arlen Oshea, [address] [facility], [place], [place], [id number]. tel:[phone] Initial [facility], [address] [place] [address], [address], [phone] [facility] Chronic kidney disease, stage 4 (severe)Acute kidney failure, unspecified 8 Angelica Boykin [address] [facility], [address] [place] [address], [id number], [place]. tel:[phone] Referring Provider: Arlen Oshea, [address] [facility], [place], [place], [id number]. tel:[phone] [facility], [address] [place] [address], [address], [place] tel:[phone] [facility] Chronic kidney disease, stage 3 (moderate)Fluid overload, unspecifiedHyper kalemiaNeuromusc ular dysfunction of bladder, unspecifiedEssen tial (primary) hypertension 8 Mari Walton. [address] [facility], [address], [place], [place], [id number], [place]. tel:[phone] Office/outpat ient Visit, [facility], [address] [place] [address], [address], [place] tel:[phone] [facility] heart disease of [place] coronary artery w/o ang pctrsAcidosisTyp e 2 diabetes mellitus w diabetic chronic kidney diseaseChronic kidney disease, stage 4 (severe)Essentia l (primary) hypertensionEdem a, unspecified 8 Suzanne Tracy. [address] [place], [place], [id number], [place]. tel:[phone] Office Consultation [facility], [address] [place] [address], [address], [place] tel:[phone] [facility] heart disease of [place] coronary artery w/o ang pctrsAcidosisTyp e 2 diabetes mellitus w diabetic chronic kidney diseaseChronic kidney disease, stage 4 (severe)Essentia l (primary) hypertension 8 Suzanne Tracy. [address] [place], [place], [id number], [place]. tel:[phone] Office/outpat ient Visit, [facility], [address] [place] [address], [place], [address], [place] tel:[phone] [facility] Chronic Kidney Disease (chief complaint) Hypertensi on (chief complaint) Chronic kidney disease, stage 3 (moderate)Fluid overload, unspecifiedHyper kalemiaNeuromusc ular dysfunction of bladder, unspecifiedEssen tial (primary) hypertension 8 Mari Walton. [address] [facility], [address], [id number], . tel:[phone] [facility], [address] [place] [address], [facility], tel: [phone] [facility] Chronic kidney disease, stage 3 (moderate)Fluid overload, unspecifiedHyper kalemiaNeuromusc ular dysfunction of bladder, unspecifiedEssen tial (primary) hypertension 8 Mari Walton. [address] [facility], [address], [address] [place] [address], . tel:[phone] [facility], [address] [place] [address], [facility], tel:[phone] [facility] Chronic kidney disease, stage 3 (moderate)Fluid overload, unspecifiedHyper kalemiaNeuromusc ular dysfunction of bladder, unspecifiedEssen tial (primary) hypertension 8 Mari Walton. [facility], [address], [id number], . tel:[phone] Office/outpat ient Visit, [facility], [address], [facility], tel:[phone] [facility] Chronic Kidney Disease (chief complaint) Hypertensi on (chief complaint) Chronic kidney disease, stage 3 (moderate)Fluid overload, unspecifiedHyper kalemiaNeuromusc ular dysfunction of bladder, unspecifiedEssen tial (primary) hypertension 8 Mari Walton. [address] [facility], [address] [place] [address], [id number], . tel:[phone] [facility], [address], [address], tel:[phone] [facility] Chronic kidney disease, stage 3 (moderate)Fluid overload, unspecifiedHyper kalemiaNeuromusc ular dysfunction of bladder, unspecifiedEssen tial (primary) hypertension 8 Mari Walton. [address] [facility], [address] [place] [address], [id number], [place]. [phone] [facility], [address], [address], tel:[phone] [facility] Chronic kidney disease, stage 3 (moderate)Fluid overload, unspecifiedHyper kalemiaNeuromusc ular dysfunction of bladder, unspecifiedEssen tial (primary) hypertension 8 Mari Walton. [address] [facility], [address], [id number], [place]. tel:[phone] Office/outpat ient Visit, [facility], [address], [address], tel:[phone] [facility] Chronic Kidney Disease (chief complaint) Hypertensi on (chief complaint) Chronic kidney disease, stage 3 (moderate)Fluid overload, unspecifiedHyper kalemiaNeuromusc ular dysfunction of bladder, unspecifiedEssen tial (primary) hypertension 8 Mari Walton. [address] [facility], [address] [place] [address], [id number], [place]. [phone] Office/outpat ient Visit, [facility], [address], [address], tel:[phone] [facility] Chronic Kidney Disease (chief complaint) Hypertensi on (chief complaint) Chronic kidney disease, stage 3 (moderate)Fluid overload, unspecifiedHyper kalemiaNeuromusc ular dysfunction of bladder, unspecifiedEssen tial (primary) hypertension 8 Mari Walton. [address] [facility], [address] [place] [address], [id number], [place]. tel:[phone] Office/outpat ient Visit, [facility], [address], [facility], tel:[phone] [facility] Chronic Kidney Disease (chief complaint) Hypertensi on (chief complaint) Chronic kidney disease, stage 3 (moderate)Fluid overload, unspecifiedHyper kalemiaNeuromusc ular dysfunction of bladder, unspecifiedEssen tial (primary) hypertension 7 Mari Walton. [address] [facility], [address] [place] [address], [id number], [place]. tel:[phone] [facility], [address] [place] [address], [facility], tel:[phone] [facility] Chronic kidney disease, stage 3 (moderate)Fluid overload, unspecifiedHyper kalemiaNeuromusc ular dysfunction of bladder, unspecifiedEssen tial (primary) hypertension 7 Mari Walton. [address] [facility], [address] [place] [address], [id number], [place]. tel:[phone] Office/outpat ient Visit, [facility], [address] [place] [address], [facility], tel:[phone] [facility] Chronic Kidney Disease (chief complaint) Hypertensi on (chief complaint) Chronic kidney disease, stage 3 (moderate)Fluid overload, unspecifiedHyper kalemiaNeuromusc ular dysfunction of bladder, unspecifiedEssen tial (primary) hypertension 7 Mari Walton. [address] [facility], [address], [place], [id number], . tel:[phone] Office/outpat ient Visit, [facility], [address] [place] [address], [address], tel:[phone] [facility] Chronic Kidney Disease (chief complaint) Hypertensi on (chief complaint) Chronic kidney disease, stage 3 (moderate)Fluid overload, unspecifiedHyper kalemiaNeuromusc ular dysfunction of bladder, unspecifiedEssen tial (primary) hypertension 7 Mari Walton. [address] [facility], [address], [id number], [place]. tel:[phone] Office/outpat ient Visit, [facility], [address] [place] [address], [facility], tel:[phone] [facility] Chronic Kidney Disease (chief complaint) Hypertensi on (chief complaint) Chronic kidney disease, stage 3 (moderate)Fluid overload, unspecifiedHyper kalemiaNeuromusc ular dysfunction of bladder, unspecifiedEssen tial (primary) hypertension 6 Mari Walton. [address] [facility], [address] [place] [address], [id number], [place]. tel:[phone] [facility], [address] [place] [address], [address], [place] tel:[phone] [facility] Chronic kidney disease, stage 3 (moderate)Fluid overload, unspecifiedHyper kalemiaNeuromusc ular dysfunction of bladder, unspecifiedEssen tial (primary) hypertension 6 Mari Walton. [address] [facility], [address], [id number], [place]. tel:[phone] [facility], [address] [place] [address], [facility], [place] tel:[phone] [facility] Chronic kidney disease, stage 3 (moderate)Fluid overload, unspecifiedHyper kalemiaNeuromusc ular dysfunction of bladder, unspecifiedEssen tial (primary) hypertension 6 Mari Walton. [address] [facility], [address], [id number], [place]. tel:[phone] [facility], [address] [place] [address], [address], [place] tel: [phone] [facility] Chronic kidney disease, stage 3 (moderate)Fluid overload, unspecifiedHyper kalemiaNeuromusc ular dysfunction of bladder, unspecifiedEssen tial (primary) hypertension 6 Mari Walton. [address] [facility], [address] [place] [address], [id number], [place]. tel:[phone] Office/outpat ient Visit, [facility], [address] [place] [address], [facility], tel: [phone] [facility] Chronic Kidney Disease (chief complaint) Hypertensi on (chief complaint) Chronic kidney disease, stage 3 (moderate)Fluid overload, unspecifiedHyper kalemiaNeuromusc ular dysfunction of bladder, unspecifiedEssen tial (primary) hypertension 6 Mari Walton. [address] [facility], [address], [id number], [place]. tel:[phone] Office/outpat ient Visit, [facility], [address] [place] [address], [facility], tel:[phone] [facility] Chronic Kidney Disease (chief complaint) Hypertensi on (chief complaint) Chronic kidney disease, stage 3 (moderate)Fluid overload, unspecifiedHyper kalemiaNeuromusc ular dysfunction of bladder, unspecifiedEssen tial (primary) hypertension 6 Mari Walton. [address] [facility], [address], [place], [id number], [place]. tel:[phone] Office/outpat ient Visit, [facility], [address] [place] [address], [address], [place] tel:[phone] [facility] Chronic Kidney Disease (chief complaint) Hypertensi on (chief complaint) Chronic kidney disease, stage 3 (moderate)Fluid overload, unspecifiedHyper kalemiaNeuromusc ular dysfunction of bladder, unspecifiedEssen tial (primary) hypertension 2- 5 Mari Walton. [facility], [address], [id number], [place]. [phone] [facility], [address] [place] [address], [address], [phone] [facility] Chronic kidney disease, stage 3 (moderate)Fluid overload, unspecifiedHyper kalemiaNeuromusc ular dysfunction of bladder, unspecifiedEssen tial (primary) hypertension 5 Mari Walton. [address] [place] [address], [address], [id number], [place]. [phone] [facility], [address] [place] [address], [address], tel:[phone] [facility] Chronic kidney disease, Stage III (moderate)Other fluid overloadHyperpot assemiaOther functional disorder of bladderUnspecifi ed essential hypertension 5 Mari Walton. [facility], [address], [id number], [place]. [phone] Office/outpat ient Visit, [facility], [address] [place] [address], [address], tel:[phone] [facility] Chronic Kidney Disease (chief complaint) Hypertensi on (chief complaint) Chronic kidney disease, Stage III (moderate)Other fluid overloadHyperpot assemiaOther functional disorder of bladderUnspecifi ed essential hypertension 5 Mari Walton. [facility], [address], [id number], [place]. tel:[phone] [facility], [address] [place] [address], [address], [place] tel:[phone] [facility] Chronic kidney disease, Stage III (moderate)Other fluid overloadHyperpot assemiaOther functional disorder of bladderUnspecifi ed essential hypertension 5 Mari Walton. [address] [facility], [address], [id number], [place]. tel:[phone] Office/outpat ient Visit, [facility], [address] [place] [address], [address], [place] tel:[phone] [facility] Chronic Kidney Disease (chief complaint) Hypertensi on (chief complaint) Chronic kidney disease, Stage III (moderate)Other fluid overloadHyperpot assemiaOther functional disorder of [facility]Un[facility] ed essential hypertension 4 Mari Walton. [address] [facility], [address], [id number], [place]. tel:[phone] Office/outpat ient Visit, [facility], [address] [place] [address], [address], tel:[phone] [facility] No Information 4 Mari Walton. [address] [facility], [address], [id number], [place]. tel:[phone] Family History Family Member Type Diagnosis Age At Onset No Information Payers Payer name Insurance type Covered green party ID Authoriza tion(s) Medicare [place] Primary MB [id number] [facility] [id number] Social History Type Description Quantity Date Captured [...]
--- OUTSIDE RECORDS SUMMARY | 2025-06-15 16:37 | XMS_ITS | Continuity of Care Document ---
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 [address] [place] [address], [id number], . tel:[phone] [facility], [address], [place], [place], [id number], tel:[phone] [facility] Compression of VeinEnd stage renal disease Jan-0 5 Makris Jeff. [address] [place] [address], [id number], . tel:[phone] Referring Provider: [place], [address] . tel:[phone] [facility], [address] [place] [address], [id number], tel:[phone] [facility] Compression of VeinEnd stage renal disease Jan-0 6 5 Makris Jeff. [address] [place] [address], [id number], . tel:[phone] Referring Provider: Demarcus Palacios, [place], [address] . tel:[phone] [facility], [address], [place], [place], [id number], tel:[phone] [facility] No Information 5 Makris Jeff. [facility] [employer] [place], [place], [id number], [place]. tel:[phone] [facility], [address], [place], [place], [id number], tel:[phone] [facility] Compression of VeinEnd stage renal disease 3 Makris Jeff. [address] [place], [place] [address], [id number], [place]. tel:[phone] Referring Provider: Demarcus Palacios, Connie [address], [place], [address] . tel:[phone] [facility], [facility] [employer] [place], [place], [id number], tel:[phone] [facility] End stage renal diseaseCompress ion of Vein 3 Makris Jeff. [address] [place], [place] [address] [place], [place], [id number], [place]. tel:[phone] Referring Provider: Connie Crews [address], [place], [address] . tel:[phone] [facility], [facility] [employer] [place], [place], [id number], tel:[phone] [facility] End stage renal disease 3 Makris Jeff. [address] [place], [place] [address], [id number], [place]. tel:[phone] Referring Provider: Connie Crews [address], [place], [address] . tel:[phone] [facility], [address] [place], [address], tel:[phone] [facility] End stage renal disease 3 Makris Jeff. [address] [place], [place] [address]Revision [employer] [place], [id number], [place]. tel:[phone] Referring Provider: Demarcus Palacios, [address], [place], [address] . tel:[phone] [facility], [address] [facility] [employer] [place], [id number], tel:[phone] [facility] End stage renal disease 3 Gutierrez Mariano. [address] [place], [place] [address] [place], [id number], [place]. tel:[phone] Referring Provider: Demarcus Palacios, [address], [place], [address] . tel:[phone] [facility], [facility] [place], [id number], tel:[phone] [facility] End stage renal disease 3 Gutierrez Mariano. [address] [place], [place] [address]Revision [employer] [place], [id number], [place]. tel:[phone] Referring Provider: Demarcus Palacios, Connie [address] [place], [address] . tel:[phone] [facility], [facility] [place], [address], tel:[phone] [facility] Compression of VeinEnd stage renal disease 3 Makris Jeff. [address] [place], [place] [address]Revision [employer] [place], [id number], [place]. tel:[phone] Referring Provider: Demarcus Palacios, [address], [place], [address] . tel:[phone] [employer] [facility], [address] [place], [place] [address], [address], tel:[phone] [facility] Compression of VeinEnd stage renal disease 3 Makris Jeff. [address] [place], [place] [address]Revision [employer] [place], [id number], [place]. tel:[phone] Referring Provider: Demarcus Palacios, [address], [place], [address] . tel:[phone] [facility], [address], [place], [place], [id number], tel:[phone] [facility] Compression of VeinEnd stage renal disease 2 Tasha Erazo. [address] [place], [place] [address]Revision [employer] [place], [place], [id number], [place]. tel:[phone] Referring Provider: Connie Crews [address], [place], [address] . tel:[phone] [facility], [address] [place], [place] [address]Revision [employer] [place], [id number], [place] tel:[phone] [facility] End stage renal diseaseCompress ion of Vein 2 Tasha Erazo. [address] [place], [place] [address] [place], [address], [place]. tel:[phone] Referring Provider: Connie Crews [address] [place] [place], [address] . tel:[phone] [facility], [address], [place], [place], [address], [place] tel:[phone] [facility] Compression of VeinEnd stage renal disease 2 Gutierrez Mariano. [address] [place], [place] [address], [place], [address], [place]. tel:[phone] Referring Provider: Demarcus Palacios, Connie [address], [place], [address] . tel:[phone] [facility], [facility] [employer] [place], [place], [address], [place] tel:[phone] [facility] Compression of VeinEnd stage renal disease 2 Gutierrez Mariano. [address] [place], [place] [address], [address], [place]. tel:[phone] Referring Provider: Connie Crews [address], [place], [address] . tel:[phone] [facility], [address], [place], [place], [address], [place] [facility] End stage renal diseaseCompress ion of Vein Apr- 0 2 Will Flori. [facility] [employer] [place], [place], [address], [place]. tel:[phone] Referring Provider: Cindy Mora, [address] [facility] [address], [place], [address]. tel:[phone] [facility], [address] [place], [place] [address]Revision [employer] [place], [address], [place] tel:[phone] [facility] End stage renal diseaseCompress ion of Vein 2 Tasha Erazo. [facility] [employer], [id number], [place]. tel:[phone] Referring Provider: Cindy Mora, [address] [address], [place], [address]. tel:[phone] [facility], [address] [place], [place] [address] [place], [address], [place] tel:[phone] [facility] Compression of VeinEnd stage renal disease 2 Tasha Erazo. [facility] [place], [address], [place]. tel:[phone] Referring Provider: Cindy Mora, Connie [address] [facility] [address] [facility], [place], [address]. tel:[phone] [facility], [facility] [employer] [place], [place], [address], [place] tel:[phone] [facility] Compression of VeinEnd stage renal disease 2 Tasha Erazo. [address] [place], [place] [address], [place], [address], [place]. tel:[phone] Referring Provider: Cindy Mora, [address] [address], [place], [address]. tel:[phone] [facility], [address], [place], [place], [id number], [place] tel:[phone] [facility] Compression of VeinEnd stage renal disease Jan- 2 Tasha Erazo. [address] [place], [place], [address], [place]. tel:[phone] Referring Provider: Cindy Mora, [address] [facility] [address], [place], [address]. tel:[phone] [facility], [address], [place], [place], [id number], [place] tel:[phone] [facility] No Information 2 Makris Jeff. [address] [place], [place] [address]Revision [employer] [place], [place], [address], [place]. tel:[phone] [facility], [address] [place] [address], [id number], [place] tel:[phone] [facility] Compression of VeinEnd stage renal disease 1 Tasha Erazo. [address] [place] [address], [id number], [place]. tel:[phone] Referring Provider: Cindy Mora, [address] [facility] [address], [place], [address]. tel:[phone] [facility], [address] [place], [place] [address]Revision [employer] [place], [place], [address], [place] tel:[phone] [facility] Compression of VeinEnd stage renal disease 1 Gutierrez Mariano. [address] [place] [address], [id number], [place]. tel:[phone] Referring Provider: Demarcus Palacios, [address] , [place], [address] . tel:[phone] [facility], [address] [place], [place] [address] [place], [address], [place] tel:[phone] [facility] Compression of VeinEnd stage renal disease 1 Makris Jeff. [address] [place] [address], [id number], [place]. tel:[phone] Referring Provider: Connie Crews E [facility], [place], [address] . tel:[phone] [facility], [address] [place], [place], [id number], tel:[phone] [facility] End stage renal disease 1 Makris Jeff. [address] [place], [place], [address], [place]. tel:[phone] Referring Provider: Connie Crews E [facility], [place], [address] . tel:[phone] Office/outpa tient visit est Ilana JIANG, [address] [place] [address], [id number], tel:[phone] [facility] 0 Tasha Erazo. [address] [place] [address], [id number], [place]. tel:[phone] Referring Provider: [place], [address] . tel:[phone] [facility], [address] [place] [address], [id number], tel:[phone] [facility] End stage renal disease 0 Gutierrez Mariano. [address] [place] [address], [id number], . tel:[phone] Referring Provider: Connie Crews E [facility], [place], [address] . tel:[phone] [facility], [address] [place] [address], [id number], tel:[phone] [facility] Stricture of ArteryEnd stage renal disease 0 Tasha Erazo. [address] [place] [address], [id number], . tel:[phone] Referring Provider: Demarcus Palacios, [address] [place], [address] . tel:[phone] [facility], [address] [place], [place], [address], tel:[phone] [facility] Stricture of ArteryEnd stage renal disease 0 Makris Jeff. [address] [place] [address], [id number], [place]. tel:[phone] Referring Provider: Demarcus Palacios, [address] [place], [address] . tel:[phone] [facility], [address] [place] [address], [id number], tel:[phone] [facility] Stricture of ArteryEnd stage renal diseaseStrictur e of ArteryEnd stage renal disease 0 Tasha Erazo. [address] [place] [address], [id number], [place]. tel:[phone] Referring Provider: Cindy Mroa, [address] [facility] [address], [place], [address]. tel:[phone] [facility], [address] [place] [address], [id number], [place] tel:[phone] [facility] No Information 0 Makris Jeff. [address] [place] [address], [id number], [place]. tel:[phone] As per patient privacy policy some of the clinical information may not be visible. Family History Family Member Type Diagnosis Age At Onset Father Problem (finding) Renal disease Payers Payer name Insurance type Covered alliance party ID Authoriza tion(s) Medicare [place] [id number] [facility] [id number] Social History Type Description Quantity Date Captured Comments Sex Male Smoking Status No Information Gender Identity Male Chief Complaint And Reason For Visit No Information Reason For Referral Reason For Referral No Information Plan Of Treatment Date Type Action Status Appointment Harpreet Ponce// RFF *MCR* CO2* From Trans. Pt BOOKED Future Order: Radiology Order Up per Body Flouroscopy (47234A), Ordered on: Ordered Future Order: Radiology Order Up per Body Flouroscopy (65010V), Ordered on: Ordered Future Order: Radiology Order Up per Body Flouroscopy (66210M), Ordered on: Ordered Future Order: Radiology Order Up per Body Flouroscopy (30634E), Ordered on: Ordered Future Order: Radiology Order Up per Body Flouroscopy (14541Y), Ordered on: Ordered Future Order: Radiology Order Up per Body Flouroscopy (35123O), Ordered on: Ordered Future Order: Radiology Order Up per Body Flouroscopy (26537H), Ordered on: Ordered Future Order: Radiology Order Up per Body Flouroscopy (98608G), Ordered on: Ordered Future Order: Radiology Order Up per Body Flouroscopy (53407S), Ordered on: Ordered Future Order: Radiology Order Up per Body Flouroscopy (31080Y), Ordered on: Ordered Future Order: Radiology Order Up per Body Flouroscopy (98746N), Ordered on: Ordered Future Order: Radiology Order Up per Body Flouroscopy (03223Y), Ordered on: Ordered Future Order: Radiology Order Up per Body Flouroscopy (61987C), Ordered on: Ordered Future Order: Radiology Order Up per Body Flouroscopy (72505Y), Ordered on: Ordered Future Order: Radiology Order Up per Body Flouroscopy (96147T), Ordered on: Ordered Future Order: Radiology Order Up per Body Flouroscopy (94624M), Ordered on: Ordered Future Order: Radiology Order Up per Body Flouroscopy (75398X), Ordered on: Ordered History Of Present Illness Encounter Date Complaint History Of Prese nt Illness No Information Functional Status Date Functional Assessmen t No Information Instructions Date Instruction Additional Infor mation No Information Assessments Type Assessment Date No Information Patient Care Teams Name Effective Dates (start - stop) Status Members No Information
[2025-06-15 17:40] VITALS: BP 161/66; PULSE 90; RESP 20; TEMP 37.9; O2SAT 99
--- OUTSIDE RECORDS SUMMARY | 2025-06-15 18:29 | XMS_ITS | Encounter Summary ---
Author Organization [employer] Address 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
--- OUTSIDE RECORDS SUMMARY | 2025-06-15 18:29 | XMS_ITS | Continuity of Care Document ---
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, [address] [place] [address], [address], tel:[phone] [facility] [place] Acute kidney failure, unspecifiedChron ic kidney disease, stage 4 (severe)Type 2 diabetes mellitus with diabetic chronic kidney diseaseImmunodef iciency, unspecifiedEncou nter for aftercare following kidney transplantOther recurrent and persistent immunoglobulin A nephropathy Jul- 4 Sara DEUTSCH Moses. [address] [facility], [address], [place], [id number], [place]. tel:[phone] Subsequent [facility], [address] [place] [address], [address], tel:[phone] [facility] [place] Chronic kidney disease, stage 4 (severe)Type 2 diabetes mellitus with diabetic chronic kidney diseaseKidney transplant statusImmunodefi ciency, unspecifiedOther recurrent and persistent immunoglobulin A nephropathyAcute kidney failure, unspecified Sep-2 4 Sara Lopes. [address] [facility], [address] [place] [address], [id number], [place]. tel:[phone] Hospital Care [facility], [address] [place], [address], tel:[phone] [facility] [place] Acute kidney failure, unspecifiedChron ic kidney disease, stage 4 (severe)Type 2 diabetes mellitus with diabetic chronic kidney diseaseImmunodef iciency, unspecifiedEncou nter for aftercare following kidney transplantOther recurrent and persistent immunoglobulin A nephropathy Sep-2 4 Sara Lopes[address] [place] [address], [address] [place] [address], [id number], [place]. tel:[phone] [facility], [address] [place] [address], [address], tel:[phone] [facility] Other disorders of phosphorus metabolismEnd stage renal diseaseDependenc e on renal dialysis 4 Sara Lopes. [address] [place] [address], [address], [id number], [place]. tel:[phone] [facility], [address] [place] [address], [address], tel:[phone] [facility] Other disorders of phosphorus metabolismEnd stage renal diseaseDependenc e on renal dialysis 3 Suzanne Leet. [address], [place], [place], [id number], [place]. tel:[phone] [facility], [address] [place] [address], [address], tel:[phone] [facility] Other disorders of phosphorus metabolismEnd stage renal diseaseDependenc e on renal dialysis 3 Sara Lopes. [address] [facility], [address] [place] [address], [id number], [place]. tel:[phone] [facility], [address] [place] [address], [address] [place] [address] tel:[phone] [facility] Other disorders of phosphorus metabolismEnd stage renal diseaseDependenc e on renal dialysis 3 Suzanne Tracy. [address] [place], [id number], [place]. tel:[phone] [facility], [address] [place] [address], [facility], tel:[phone] [facility] Other disorders of phosphorus metabolismEnd stage renal diseaseDependenc e on renal dialysis 3 Sara Lopes. [address] [place] [address], [address] [place] [address], [id number], [place]. tel:[phone] [facility] 7 DAY [facility], [address] [place] [address], [facility], tel:[phone] [facility] No Information 3 Josue Garcia. [address] [facility], [place], [place], [id number], [place]. tel:[phone] [facility], [address] [place] [address], [facility], tel:[phone] [facility] [place] End stage renal diseaseHypertens shawn chronic kidney disease with stage 5 chronic kidney disease or end stage renal diseaseType 2 diabetes mellitus with diabetic chronic kidney diseaseOther disorders of phosphorus metabolismDepend ence on renal dialysis 3 Sara Lopes. [address] [facility], [address], [place], [place], [id number], [place]. tel:[phone] [facility], [address] [place] [address], [facility], tel:[phone] [facility] Other disorders of phosphorus metabolismEnd stage renal diseaseDependenc e on renal dialysis 3 Suzanne Tracy. [address] [place], [id number], [place]. tel:[phone] [facility], [address] [place] [address], [facility], tel:[phone] [facility] End stage renal diseaseDependenc e on renal dialysis 3 Sara Lopes. [address] [place] [address], [address], [id number], . tel:[phone] [facility], [address] [place] [address], [facility], tel:[phone] [facility] End stage renal diseaseDependenc e on renal dialysis 3 Sara Lopes. [address] [place] [address], [address], [id number], . tel:[phone] [facility], [address] [place] [address], [facility], tel:[phone] [facility] End stage renal diseaseDependenc e on renal dialysis 3 Suzanne Tracy. [address] [place], [id number], [place]. tel:[phone] [facility], [address] [place] [address], [facility], tel:[phone] [facility] End stage renal diseaseDependenc e on renal dialysis 3 Sara Lopes. [address] [place] [address], [address], [id number], . tel:[phone] [facility], [address] [place] [address], [facility], tel:[phone] [place] [facility] No Information 3 Suzanne Wu [address], [place], [id number], [place]. tel:[phone] [facility], [address] [place] [address], [facility], tel:[phone] [facility] End stage renal diseaseDependenc e on renal dialysis 3 Suzanne Tracy. [address], [place], [id number], . tel:[phone] [facility], [address] [place] [address], [facility], tel:[phone] [facility] End stage renal diseaseDependenc e on renal dialysis 3 Abby White. [address] [place], [place], [id number], . tel:[phone] [facility], [address] [place] [address], [address] [place] [address] tel:[phone] [facility] End stage renal diseaseDependenc e on renal dialysis 3 Sara Lopes. [address] [place] [address], [address], [id number], . tel:[phone] [facility], [address] [place] [address], [facility], tel:[phone] [facility] End stage renal diseaseDependenc e on renal dialysis 2 Abby White. [address] [place], [place], [id number], . tel:[phone] [facility], [address] [place] [address], [facility], tel:[phone] [facility] End stage renal diseaseDependenc e on renal dialysis 2 Suzanne Tracy. [address] [place], [place], [id number], . tel:[phone] [facility], [address] [place] [address], [facility], tel:[phone] [facility] End stage renal diseaseDependenc e on renal dialysis 2 Abby Watt [address], [place], [place], [id number], [place]. tel:[phone] [facility], [address] [place] [address], [address], tel:[phone] [facility] End stage renal diseaseDependenc e on renal dialysis 2 Suzanne Wu [address] [place], [id number], [place]. tel:[phone] [facility], [address] [place] [address], [address], tel:[phone] [facility] End stage renal diseaseDependenc e on renal dialysis 2 Abby White. [address], [place], [place], [id number], [place]. tel:[phone] [facility], [address] [place] [address], [address], tel:[phone] [facility] End stage renal diseaseDependenc e on renal dialysis 2 Suzanne Wu [address] [place], [id number], [place]. tel:[phone] [facility], [address] [place] [address], [address], tel:[phone] [facility] End stage renal diseaseDependenc e on renal dialysis 2 Abby White. [address], [place], [place], [id number], [place]. tel:[phone] [facility], [address] [place] [address], [address], tel:[phone] [facility] End stage renal diseaseDependenc e on renal dialysis 2 Suzanne Wu [address] [place], [id number], [place]. [phone] [facility], [address] [place] [address], [address], tel:[phone] [facility] End stage renal diseaseDependenc e on renal dialysis 2 Abby Watt [address], [facility], [place], [place], [id number], [place]. tel:[phone] [facility], [address] [place] [address], [address], tel:[phone] [facility] End stage renal diseaseDependenc e on renal dialysis 2 Suzanne Wu [address] [place], [id number], [place]. tel:[phone] [facility], [address] [place] [address], [address], tel:[phone] [facility] End stage renal diseaseDependenc e on renal dialysis 2 Abby White. [address], [place], [place], [id number], [place]. tel:[phone] [facility], [address] [place] [address], [address], [phone] [facility] [place] End stage renal diseaseType 2 diabetes mellitus with diabetic chronic kidney diseaseDependenc e on renal dialysisEssentia l (primary) hypertensionShor tness of breath 2 Suzanne Wu [address], [place], [place], [id number], [place]. [phone] [facility], [address] [place] [address], [address], [place] tel:[phone] [facility] End stage renal diseaseDependenc e on renal dialysis 2 Suzanne Wu [address] [place], [address], [place]. tel:[phone] [facility], [address] [place] [address], [address], [place] [phone] [facility] End stage renal diseaseDependenc e on renal dialysis 1 Abby Watt [address], [place], [place], [address], [place]. tel: [facility], [address] [place] [address], [address], [place] tel: [phone] [facility] End stage renal diseaseDependenc e on renal dialysis 1 Abby Watt [address], [place], [id number], [place]. tel: [facility], [address] [place] [address], [address], tel: [phone] [facility] End stage renal diseaseDependenc e on renal dialysis 1 Suzanne Wu [address] [place], [id number], [place]. tel: [facility], [address] [place] [address], [address], tel:[phone] [facility] End stage renal diseaseDependenc e on renal dialysis 1 Abby White. [address], [place], [place], [address], [place]. tel: [facility], [address] [place] [address], [address], [place] tel:[phone] [facility] End stage renal diseaseDependenc e on renal dialysis 1 Suzanne Wu [address] [place], [id number], [place]. tel: [facility], [address] [place] [address], [address], [place] tel:[phone] [facility] End stage renal diseaseDependenc e on renal dialysis 1 Abby White. [address] [place], [id number], . tel:[phone] [facility], [address] [place] [address], [address], tel:[phone] [facility] End stage renal diseaseDependenc e on renal dialysis 1 Suzanne Wu [address] [place], [address], [place]. tel:[phone] [facility], [address] [place] [address], [address], tel:[phone] [facility] End stage renal diseaseDependenc e on renal dialysis 1 Abby White. [address] [place], [id number], [place]. tel:[phone] [facility], [address] [place] [address], [address], tel:[phone] [facility] End stage renal diseaseDependenc e on renal dialysis 1 Suzanne Wu [address] [place], [address], [place]. tel:[phone] [facility], [address], [address], tel:[phone] [facility] End stage renal diseaseDependenc e on renal dialysis 1 Abby Watt [address] [place], [address], [place]. tel:[phone] [facility], [address] [place] [address], [address], tel:[phone] [facility] End stage renal diseaseDependenc e on renal dialysis 1 Suzanne Wu [address], [place], [place], [id number], [place]. tel:[phone] [facility], [facility] [address] [place] [address], [address], tel:[phone] [facility] End stage renal diseaseDependenc e on renal dialysis 0 1 Abby White. [address] [facility], [place], [place], [id number], [place]. tel:[phone] [facility], [facility] [address] [place] [address], [address], [place] tel:[phone] [facility] End stage renal diseaseDependenc e on renal dialysis 0 Suzanne Tracy. [address] [place], [address], [place]. tel:[phone] [facility], [address] [place] [address], [address], tel:[phone] [facility] End stage renal diseaseDependenc e on renal dialysis 0 Abby White. [address], [place], [id number], [place]. tel:[phone] [facility], [address] [place] [address], [address], tel:[phone] [facility] End stage renal diseaseDependenc e on renal dialysis Aug- 0 Suzanne Wu [address] [place], [id number], [place]. tel:[phone] [facility], [address] [place] [address], [address], [place] tel:[phone] [facility] End stage renal diseaseDependenc e on renal dialysis Sep-0 0 Abby Watt [address], [place], [id number], [place]. tel:[phone] [facility], [address], [place], [address], [place] tel:[phone] [facility] End stage renal diseaseDependenc e on renal dialysis 0 Suzanne Tracy. [address] [facility], [place], [place], [address], [place]. tel:[phone] Initial Hospital Care [facility], [address] [place], [place], [address], [place] tel:[phone] [facility] [place] End stage renal diseaseEssential (primary) hypertensionDiar daphne, unspecifiedShort ness of breathDependence on renal dialysis 0 Connie John. [address], [address], [place], [address], [place]. tel:[phone] Referring Provider: Arlen Oshea, [address] [place] [address] [address], [place], [place], [id number]. tel:[phone] Subsequent [facility], [address] [place], [address], [place] tel:[phone] [facility] [place] End stage renal diseaseEssential (primary) hypertensionDepe ndence on renal dialysis 0 Connie John. [address], [address], [place], [address], [place]. tel:[phone] Referring Provider: Arlen Oshea, [address] [place] [address] Drive [address], [place], [place], [id number]. tel:[phone] Subsequent [facility], [address] [place], [place], [address], [place] tel:[phone] [facility] [place] End stage renal diseaseEssential (primary) hypertensionDiar daphne, unspecifiedShort ness of breathDependence on renal dialysis 0 Connie John. [address], [address], [place], [address], [place]. tel:[phone] Referring Provider: Arlen Oshea, [address], [place], [place], [id number]. tel:[phone] [facility], [facility] [address] [place] [address], [address], tel:[phone] [place] Follow Up of ESRD (chief complaint) Type 2 diabetes mellitus w diabetic chronic kidney diseaseEnd stage renal disease 0 Suzanne Wu [address], [place], [id number], [place]. tel:[phone] [facility], [address] [place] [address], [address], tel:[phone] [facility] Dialysis End stage renal diseaseDependenc e on renal dialysis 0 Suzanne Wu [address] [place], [id number], [place]. tel:[phone] [facility], [address] [place] [address], [address], [place] tel:[phone] [facility] End stage renal diseaseDependenc e on renal dialysis 0 Abby Watt [address], [facility], [place], [place], [address], [place]. tel:[phone] [facility], [address] [place] [address], [address], tel:[phone] [facility] End stage renal diseaseDependenc e on renal dialysis 0 Suzanne Wu [address] [place], [id number], [place]. tel:[phone] [facility], [facility] [address] [place] [address], [address], tel:[phone] [facility] End stage renal diseaseDependenc e on renal dialysis 0 Abby Watt [address], [address], [place], [place], [address], [place]. tel:[phone] [facility], [address] [place] [address], [address], tel:[phone] [facility] End stage renal diseaseDependenc e on renal dialysis 0 Suzanne Wu [address], [place], [id number], [place]. tel:[phone] [facility], [address] [place] [address], [address], tel:[phone] [facility] End stage renal diseaseDependenc e on renal dialysis 0 Abby White. [address] [facility], [facility], [place], [place], [id number], [place]. tel:[phone] [facility], [address] [place] [address], [address], tel:[phone] [facility] [place] End stage renal diseaseType 2 diabetes mellitus w diabetic chronic kidney diseaseEssential (primary) hypertensionGout due to renal impairment, right elbowGout due to renal impairment, right wristDependence on renal dialysis 0 Suzanne Wu [address], [place], [id number], [place]. tel:[phone] [facility], [address] [place] [address], [address], tel:[phone] [facility] [place] End stage renal diseaseGout due to renal impairment, right elbowGout due to renal impairment, right wristType 2 diabetes mellitus w diabetic chronic kidney diseaseEssential (primary) hypertensionDepe ndence on renal dialysis 0 Suzanne Wu [address], [place], [id number], [place]. tel:[phone] [facility], [address] [place] [address], [address], tel:[phone] [facility] End stage renal diseaseDependenc e on renal dialysis 0 Abby White. [address] [facility], [place], [place], [id number], [place]. [phone] Office/outpat ient Visit, Est [facility], [address], [facility], tel:[phone] [place] [facility] Chronic Kidney Disease (chief complaint) Hypertensi on (chief complaint) Chronic kidney disease, stage 4 (severe)Fluid overload, unspecifiedHyper kalemiaNeuromusc ular dysfunction of bladder, unspecifiedEssen tial (primary) hypertension 0 Mari Walton. [address] [place] [address], [id number], [place]. [phone] [facility], [address] [place] [address], [facility], tel:[phone] [facility] Chronic kidney disease, stage 4 (severe)Fluid overload, unspecifiedHyper kalemiaNeuromusc ular dysfunction of bladder, unspecifiedEssen tial (primary) hypertension 0 Mari Walton. [address] [place] [address], [id number], [place]. tel:[phone] [facility], [address] [place] [address], [address], tel:[phone] [facility] Chronic kidney disease, stage 4 (severe)Fluid overload, unspecifiedHyper kalemiaNeuromusc ular dysfunction of bladder, unspecifiedEssen tial (primary) hypertension 9 Mari Walton. [facility]0 [facility], [address], [id number], [place]. [phone] Office/outpat ient Visit, [facility], [address] [place] [address], [facility], tel:[phone] [facility] Chronic Kidney Disease (chief complaint) Hypertensi on (chief complaint) Chronic kidney disease, stage 4 (severe)Fluid overload, unspecifiedHyper kalemiaNeuromusc ular dysfunction of bladder, unspecifiedEssen tial (primary) hypertension 9 Mari Walton. [address] [facility], [address] [place] [address], [id number], [place]. tel:[phone] Office/outpat ient Visit, [facility], [address] [place] [address], [address], tel:[phone] [facility] Chronic Kidney Disease (chief complaint) Hypertensi on (chief complaint) Chronic kidney disease, stage 4 (severe)Fluid overload, unspecifiedHyper kalemiaNeuromusc ular dysfunction of bladder, unspecifiedEssen tial (primary) hypertension 9 Mari Walton. [address] [facility], [address] [place] [address], [id number], [place]. tel:[phone] Office/outpat ient Visit, [facility], [address] [place] [address], [address], tel:[phone] [place] [facility] [facility] Chronic Kidney Disease (chief complaint) Hypertensi on (chief complaint) Chronic kidney disease, stage 4 (severe)Fluid overload, unspecifiedHyper kalemiaNeuromusc ular dysfunction of bladder, unspecifiedEssen tial (primary) hypertension 9 Mari Walton. [address] [facility], [address] [place] [address], [id number], [place]. [phone] Office/outpat ient Visit, Est [facility], [address] [place] [address], [address], tel:[phone] [facility] Chronic Kidney Disease (chief complaint) Hypertensi on (chief complaint) Chronic kidney disease, stage 4 (severe)Fluid overload, unspecifiedHyper kalemiaNeuromusc ular dysfunction of bladder, unspecifiedEssen tial (primary) hypertension 9 Mari Walton. [address] [facility], [address], [place], [id number], [place]. tel:[phone] [facility], [address] [place] [address], [facility], tel:[phone] [facility] Chronic kidney disease, stage 4 (severe)Fluid overload, unspecifiedHyper kalemiaNeuromusc ular dysfunction of bladder, unspecifiedEssen tial (primary) hypertension 9 Mari Walton. [address] [facility], [address] [place] [address], [id number], [place]. tel:[phone] [facility], [address], [facility], tel:[phone] [facility] Chronic kidney disease, stage 4 (severe)Fluid overload, unspecifiedHyper kalemiaNeuromusc ular dysfunction of bladder, unspecifiedEssen tial (primary) hypertension 9 Mari Walton. [address] [facility], [address] [place] [address], [id number], [place]. tel:[phone] Office/outpat ient Visit, [facility], [address], [facility], tel:[phone] [place] [facility] Chronic Kidney Disease (chief complaint) Hypertensi on (chief complaint) Chronic kidney disease, stage 4 (severe)Fluid overload, unspecifiedHyper kalemiaNeuromusc ular dysfunction of bladder, unspecifiedEssen tial (primary) hypertension 9 Mari Walton. [address] [facility], [address], [id number], [place]. tel:[phone] [facility], [address], [facility], tel: [phone] [facility] Chronic kidney disease, stage 4 (severe)Fluid overload, unspecifiedHyper kalemiaNeuromusc ular dysfunction of bladder, unspecifiedEssen tial (primary) hypertension 9 Mari Walton. [address] [facility], [address], [id number], [place]. tel:[phone] Office/outpat ient Visit, [facility], [address] [place] [address], [address], tel:[phone] [place] [facility] Chronic Kidney Disease (chief complaint) Hypertensi on (chief complaint) Fluid overload, unspecifiedHyper kalemiaNeuromusc ular dysfunction of bladder, unspecifiedEssen tial (primary) hypertensionChro marisa kidney disease, stage 4 (severe) 9 Mari Walton. [address] [facility], [address] [place] [address], [id number], [place]. tel:[phone] Office/outpat ient Visit, [facility], [address], [address], tel:[phone] [place] [facility] Chronic Kidney Disease (chief complaint) Hypertensi on (chief complaint) Chronic kidney disease, stage 3 (moderate)Fluid overload, unspecifiedHyper kalemiaNeuromusc ular dysfunction of bladder, unspecifiedEssen tial (primary) hypertension 9 Mari Walton. [address] [facility], [address], [id number], [place]. tel:[phone] [facility], [address], [address], tel:[phone] [facility] No Information 9 Mari Walton. [address] [facility], [address] [place] [address], [id number], [place]. tel:[phone] [facility], [address], [address], [place] tel:[phone] [facility] Chronic kidney disease, stage 3 (moderate)Fluid overload, unspecifiedHyper kalemiaNeuromusc ular dysfunction of bladder, unspecifiedEssen tial (primary) hypertension 9 Mari Walton. [address] [facility], [address] [place] [address], [id number], [place]. tel:[phone] Office/outpat ient Visit, [facility], [address] [place] [address], [address], tel:[phone] [place] [facility] Chronic Kidney Disease (chief complaint) Hypertensi on (chief complaint) Chronic kidney disease, stage 3 (moderate)Fluid overload, unspecifiedHyper kalemiaNeuromusc ular dysfunction of bladder, unspecifiedEssen tial (primary) hypertension 8 Mari Walton. [address] [facility], [address] [place] [address], [id number], [place]. tel:[phone] Subsequent [facility], [address] [place] [address], [address], tel:[phone] [facility] Chronic kidney disease, stage 4 (severe)Acute kidney failure, unspecified 8 Angelica Boykin [address] [facility], [address], [id number], [place]. tel:[phone] Referring Provider: Arlen Oshea, [address], [place], [place], [id number]. tel:[phone] Initial [facility], [address] [place] [address], [address], [phone] [facility] Chronic kidney disease, stage 4 (severe)Acute kidney failure, unspecified 8 Angelica Boykin [address] [facility], [address] [place] [address], [id number], [place]. tel:[phone] Referring Provider: Arlen Oshea, [address], [place], [place], [id number]. tel:[phone] [facility], [address] [place] [address], [address], [place] tel:[phone] [facility] Chronic kidney disease, stage 3 (moderate)Fluid overload, unspecifiedHyper kalemiaNeuromusc ular dysfunction of bladder, unspecifiedEssen tial (primary) hypertension 8 Mari Walton. [address] [facility], [address], [place], [place], [id number], [place]. tel:[phone] Office/outpat ient Visit, [facility], [address] [place] [address], [address], [place] tel:[phone] [facility] heart disease [place] coronary artery w/o ang pctrsAcidosisTyp e 2 diabetes mellitus w diabetic chronic kidney diseaseChronic kidney disease, stage 4 (severe)Essentia l (primary) hypertensionEdem a, unspecified 8 Suzanne Tracy. [address], [id number], [place]. tel:[phone] Office Consultation [facility], [address] [place] [address], [address], [place] tel:[phone] [facility] heart disease of [place] coronary artery w/o ang pctrsAcidosisTyp e 2 diabetes mellitus w diabetic chronic kidney diseaseChronic kidney disease, stage 4 (severe)Essentia l (primary) hypertension 8 Suzanne Tracy. [address], [place], [id number], [place]. tel:[phone] Office/outpat ient Visit, [facility], [address] [place] [address], [place], [address], [place] tel:[phone] [place] [facility] Chronic Kidney Disease (chief complaint) Hypertensi on (chief complaint) Chronic kidney disease, stage 3 (moderate)Fluid overload, unspecifiedHyper kalemiaNeuromusc ular dysfunction of bladder, unspecifiedEssen tial (primary) hypertension 8 Mari Walton. [address] [facility], [address], [id number], . tel:[phone] [facility], [address] [place] [address], [facility], tel: [phone] [facility] Chronic kidney disease, stage 3 (moderate)Fluid overload, unspecifiedHyper kalemiaNeuromusc ular dysfunction of bladder, unspecifiedEssen tial (primary) hypertension 8 Mari Walton. [address] [facility], [address], [address] [place] [address], . tel:[phone] [facility], [address] [place] [address], [facility], tel:[phone] [facility] Chronic kidney disease, stage 3 (moderate)Fluid overload, unspecifiedHyper kalemiaNeuromusc ular dysfunction of bladder, unspecifiedEssen tial (primary) hypertension 8 Mari Walton. [facility], [address], [id number], . tel:[phone] Office/outpat ient Visit, [facility], [address], [facility], tel:[phone] [place] [facility] Chronic Kidney Disease (chief complaint) Hypertensi on (chief complaint) Chronic kidney disease, stage 3 (moderate)Fluid overload, unspecifiedHyper kalemiaNeuromusc ular dysfunction of bladder, unspecifiedEssen tial (primary) hypertension 8 Mari Walton. [address] [facility], [address] [place] [address], [id number], . tel:[phone] [facility], [address], [address], tel:[phone] [facility] Chronic kidney disease, stage 3 (moderate)Fluid overload, unspecifiedHyper kalemiaNeuromusc ular dysfunction of bladder, unspecifiedEssen tial (primary) hypertension 8 Mari Walton. [address] [facility], [address] [place] [address], [id number], [place]. [phone] [facility], [address], [address], tel:[phone] [facility] Chronic kidney disease, stage 3 (moderate)Fluid overload, unspecifiedHyper kalemiaNeuromusc ular dysfunction of bladder, unspecifiedEssen tial (primary) hypertension 8 Mari Walton. [address] [facility], [address], [id number], [place]. tel:[phone] Office/outpat ient Visit, [facility], [address], [address], tel:[phone] [place] [facility] Chronic Kidney Disease (chief complaint) Hypertensi on (chief complaint) Chronic kidney disease, stage 3 (moderate)Fluid overload, unspecifiedHyper kalemiaNeuromusc ular dysfunction of bladder, unspecifiedEssen tial (primary) hypertension 8 Mari Watlon. [address] [facility], [address] [place] [address], [id number], [place]. [phone] Office/outpat ient Visit, [facility], [address], [address], tel:[phone] [place] [facility] Chronic Kidney Disease (chief complaint) Hypertensi on (chief complaint) Chronic kidney disease, stage 3 (moderate)Fluid overload, unspecifiedHyper kalemiaNeuromusc ular dysfunction of bladder, unspecifiedEssen tial (primary) hypertension 8 Mari Walton. [address] [facility], [address] [place] [address], [id number], [place]. tel:[phone] Office/outpat ient Visit, [facility], [address], [facility], tel:[phone] [place] [facility] Chronic Kidney Disease (chief complaint) Hypertensi on (chief complaint) Chronic kidney disease, stage 3 (moderate)Fluid overload, unspecifiedHyper kalemiaNeuromusc ular dysfunction of bladder, unspecifiedEssen tial (primary) hypertension 7 Mari Walton. [address] [facility], [address] [place] [address], [id number], [place]. tel:[phone] [facility], [address] [place] [address], [facility], tel:[phone] [facility] Chronic kidney disease, stage 3 (moderate)Fluid overload, unspecifiedHyper kalemiaNeuromusc ular dysfunction of bladder, unspecifiedEssen tial (primary) hypertension 7 Mari Walton. [address] [facility], [address] [place] [address], [id number], [place]. tel:[phone] Office/outpat ient Visit, [facility], [address] [place] [address], [facility], tel:[phone] [place] [facility] Chronic Kidney Disease (chief complaint) Hypertensi on (chief complaint) Chronic kidney disease, stage 3 (moderate)Fluid overload, unspecifiedHyper kalemiaNeuromusc ular dysfunction of bladder, unspecifiedEssen tial (primary) hypertension 7 Mari Walton. [address] [facility], [address], [id number], . tel:[phone] Office/outpat ient Visit, [facility], [address] [place] [address], [address], tel:[phone] [place] [facility] Chronic Kidney Disease (chief complaint) Hypertensi on (chief complaint) Chronic kidney disease, stage 3 (moderate)Fluid overload, unspecifiedHyper kalemiaNeuromusc ular dysfunction of bladder, unspecifiedEssen tial (primary) hypertension 7 Mari Walton. [address] [facility], [address], [id number], [place]. tel:[phone] Office/outpat ient Visit, [facility], [address] [place] [address], [facility], tel:[phone] [place] [facility] Chronic Kidney Disease (chief complaint) Hypertensi on (chief complaint) Chronic kidney disease, stage 3 (moderate)Fluid overload, unspecifiedHyper kalemiaNeuromusc ular dysfunction of bladder, unspecifiedEssen tial (primary) hypertension 6 Mari Walton. [address] [facility], [address] [place] [address], [id number], [place]. tel:[phone] [facility], [address] [place] [address], [address], [place] tel:[phone] [facility] Chronic kidney disease, stage 3 (moderate)Fluid overload, unspecifiedHyper kalemiaNeuromusc ular dysfunction of bladder, unspecifiedEssen tial (primary) hypertension 6 Mari Walton. [address] [facility], [address], [id number], [place]. tel:[phone] [facility], [address] [place] [address], [facility], [place] tel:[phone] [facility] Chronic kidney disease, stage 3 (moderate)Fluid overload, unspecifiedHyper kalemiaNeuromusc ular dysfunction of bladder, unspecifiedEssen tial (primary) hypertension 6 Mari Walton. [address] [facility], [address], [id number], [place]. tel:[phone] [facility], [address] [place] [address], [address], [place] tel: [phone] [facility] Chronic kidney disease, stage 3 (moderate)Fluid overload, unspecifiedHyper kalemiaNeuromusc ular dysfunction of bladder, unspecifiedEssen tial (primary) hypertension 6 Mari Walton. [address] [facility], [address] [place] [address], [id number], [place]. tel:[phone] Office/outpat ient Visit, [facility], [address] [place] [address], [facility], tel: [phone] [place] [facility] Chronic Kidney Disease (chief complaint) Hypertensi on (chief complaint) Chronic kidney disease, stage 3 (moderate)Fluid overload, unspecifiedHyper kalemiaNeuromusc ular dysfunction of bladder, unspecifiedEssen tial (primary) hypertension 6 Mari Walton. [address] [facility], [address], [id number], [place]. tel:[phone] Office/outpat ient Visit, [facility], [address] [place] [address], [facility], tel:[phone] [place] [facility] Chronic Kidney Disease (chief complaint) Hypertensi on (chief complaint) Chronic kidney disease, stage 3 (moderate)Fluid overload, unspecifiedHyper kalemiaNeuromusc ular dysfunction of bladder, unspecifiedEssen tial (primary) hypertension 6 Mari Walton. [address] [facility], [address], [id number], [place]. tel:[phone] Office/outpat ient Visit, [facility], [address] [place] [address], [address], [place] tel:[phone] [place] [facility] Chronic Kidney Disease (chief complaint) Hypertensi on (chief complaint) Chronic kidney disease, stage 3 (moderate)Fluid overload, unspecifiedHyper kalemiaNeuromusc ular dysfunction of bladder, unspecifiedEssen tial (primary) hypertension 2- 5 Mair Walton. [facility], [address], [id number], [place]. [phone] [facility], [address] [place] [address], [address], [phone] [facility] Chronic kidney disease, stage 3 (moderate)Fluid overload, unspecifiedHyper kalemiaNeuromusc ular dysfunction of bladder, unspecifiedEssen tial (primary) hypertension 5 Mari Walton. [address] [place] [address], [address], [id number], [place]. [phone] [facility], [address] [place] [address], [address], tel:[phone] [facility] Chronic kidney disease, Stage III (moderate)Other fluid overloadHyperpot assemiaOther functional disorder of bladderUnspecifi ed essential hypertension 5 Mari Walton. [facility], [address], [id number], [place]. [phone] Office/outpat ient Visit, [facility], [address] [place] [address], [address], tel:[phone] [place] [facility] Chronic Kidney Disease (chief complaint) Hypertensi on (chief complaint) Chronic kidney disease, Stage III (moderate)Other fluid overloadHyperpot assemiaOther functional disorder of bladderUnspecifi ed essential hypertension 5 Mari Walton. [facility], [address], [id number], [place]. tel:[phone] [facility], [address] [place] [address], [address], [place] tel:[phone] [facility] Chronic kidney disease, Stage III (moderate)Other fluid overloadHyperpot assemiaOther functional disorder of bladderUnspecifi ed essential hypertension 5 Mari Walton. [address] [facility], [address], [id number], [place]. tel:[phone] Office/outpat ient Visit, [facility], [address] [place] [address], [address], [place] tel:[phone] [place] [facility] Chronic Kidney Disease (chief complaint) Hypertensi on (chief complaint) Chronic kidney disease, Stage III (moderate)Other fluid overloadHyperpot assemiaOther functional disorder of [facility]Uns[facility] ed essential hypertension 4 Mari Walton. [address] [facility], [address], [id number], [place]. tel:[phone] Office/outpat ient Visit, [facility], [address] [place] [address], [address], tel:[phone] [facility] No Information 4 Mari Walton. [address] [facility], [address], [id number], [place]. tel:[phone] Family History Family Member Type Diagnosis Age At Onset No Information Payers Payer name Insurance type Covered democrat ID Authoriza tion(s) Medicare [place] Primary MB [id number] BS [facility] [id number] Social History Type Description Quantity Date Captured [...]
--- OUTSIDE RECORDS SUMMARY | 2025-06-15 18:29 | XMS_ITS | Encounter Summary ---
Author Organization [facility] Address [address] [place] [address] Care Team Providers Care Implementation Advisor Name Role Phone Unavailable Primary Care Provider Unavailabl e Encounter Details Date Type Department Care Team (Latest Contact Info) Description 09/09/2003 Outpatient Historical [facility] Luiz Workman MD [address] [place] [address] [place] [address] Ronak Zapien MD NO ADDRESS ON FILE BRACHIAL NEURITIS NOS (Primary Dx) Social History Tobacco Use Types Packs/Day Years Used Date Smoking Tobacco: Never Assessed Sex and Gender Information Value Date Recorded Sex Assigned at Not on file Legal Sex Male 2:45 AM [employer] Gender Identity Not on file Sexual Orientation Not on file documented as of this encounter Plan of Treatment Not on file documented as of this encounter Visit Diagnoses Diagnosis Brachial neuritis or radiculitis NOS- Primary Brachial neuritis or radiculitis nos documented in this encounter
--- OUTSIDE RECORDS SUMMARY | 2025-06-15 18:29 | XMS_ITS | Clinical Summary ---
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
--- OUTSIDE RECORDS SUMMARY | 2025-06-15 18:29 | XMS_ITS | Continuity of Care Document ---
Author Organization [facility] Address [address] [place] [address] Phone Care Team Providers Care Retail Advertising Executive Name Role Phone Jeff Basilio MD Unavailable [...] Diagnoses Date Provider Providers Copied on Encounter [facility], [address], [place], [place], [id number], tel:[phone] [facility] No Information 0- 5 Makris Jeff. [address] [place] [address], [id number], . tel:[phone] [facility], [address], [place], [place], [id number], tel:[phone] [facility] Compression of VeinEnd stage renal disease Jan-0 5 Makris Jeff. [address] [place] [address], [id number], . tel:[phone] Referring Provider: [place], [address] . tel:[phone] [facility], [address] [place] [address], [id number], tel:[phone] [facility] Compression of VeinEnd stage renal disease Jan-0 6 5 Makris Jeff. [address] [place] [address], [id number], . tel:[phone] Referring Provider: Demarcus Palacios, [place], [address] . tel:[phone] [facility], [address], [place], [place], [id number], tel:[phone] [facility] No Information 5 Makris Jeff. [facility] [employer] [place], [id number], [place]. tel:[phone] [facility], [address], [place], [place], [id number], tel:[phone] [facility] Compression of VeinEnd stage renal disease 3 Makris Jeff. [address] [place], [place] [address], [id number], [place]. tel:[phone] Referring Provider: Demarcus Palacios, [address], [place], [address] . tel:[phone] [facility], [facility] [employer] [place], [id number], tel:[phone] [facility] End stage renal diseaseCompress ion of Vein 3 Makris Jeff. [address] [place], [place] [address] [place], [id number], [place]. tel:[phone] Referring Provider: Connie Crews [address], [place], [address] . tel:[phone] [facility], [facility] [employer] [place], [id number], tel:[phone] [facility] End stage renal disease 3 Makris Jeff. [address] [place], [place] [address] [place], [place], [id number], [place]. tel:[phone] Referring Provider: Connie Crews [address], [place], [address] . tel:[phone] [facility], [address] [place] [address], [id number], tel:[phone] [facility] End stage renal disease 3 Makris Jeff. [address] [place], [place] [address], [id number], [place]. tel:[phone] Referring Provider: Demarcus Palacios, [address], [place], [address] . tel:[phone] [facility], [address] [facility] [address] [employer] [employer] [place], [id number], tel:[phone] [facility] End stage renal disease 3 Gutierrez Mariano. [address] [place], [place] [address] [place], [id number], [place]. tel:[phone] Referring Provider: Demarcus Palacios, [address], [place], [address] . tel:[phone] [facility], [facility] [place], [id number], tel:[phone] [facility] End stage renal disease 3 Gutierrez Mariano. [address] [place], [place] [address] [place], [id number], [place]. tel:[phone] Referring Provider: Demarcus Palacios, [place], [address] . tel:[phone] [facility], [facility] [place], [id number], tel:[phone] [facility] Compression of VeinEnd stage renal disease 3 Makris Jeff. [address] [place], [place] [address], [id number], [place]. tel:[phone] Referring Provider: Demarcus Palacios, [address], [place], [address] . tel:[phone] [facility], [address] [place], [place] [address] [place], [address], tel:[phone] [facility] Compression of VeinEnd stage renal disease 3 Makris Jeff. [address] [place], [place] [address], [id number], [place]. tel:[phone] Referring Provider: Demarcus Palacios, [address], [place], [address] . tel:[phone] [facility], [address], [place], [place], [id number], tel:[phone] [facility] Compression of VeinEnd stage renal disease 2 Tasha Erazo. [address] [place], [place] [address] [place], [id number], [place]. tel:[phone] Referring Provider: Connie Crews [address], [place], [address] . tel:[phone] [facility], [address] [place], [place] [address], [id number], [place] tel:[phone] [facility] End stage renal diseaseCompress ion of Vein 2 Tasha Erazo. [address] [place], [place] [address] [place], [address], [place]. tel:[phone] Referring Provider: Connie [address], [address] . tel:[phone] [facility], [address], [place], [place], [address], [place] tel:[phone] [facility] Compression of VeinEnd stage renal disease 2 Gutierrez Mariano. [address] [place], [place] [address] [place], [id number], [place]. tel:[phone] Referring Provider: Demarcus Palacios, [address], [place], [address] . tel:[phone] [facility], [facility] [employer] [place], [id number], [place] tel:[phone] [facility] Compression of VeinEnd stage renal disease 2 Gutierrez Mariano. [address] [place], [place] [address] [place], [id number], [place]. tel:[phone] Referring Provider: Connie Crews [address], [place], [address] . tel:[phone] [facility], [address], [place], [place], [address], [place] [facility] End stage renal diseaseCompress ion of Vein Apr- 0 2 Will Flori. [facility] [employer] [place], [id number], [place]. tel:[phone] Referring Provider: Cindy Mora, [address] [facility] [address], [place], [address]. tel:[phone] [facility], [address] [place] [address] [place], [id number], [place] tel:[phone] [facility] End stage renal diseaseCompress ion of Vein 2 Tasha Erazo. [facility] [place], [id number], [place]. tel:[phone] Referring Provider: Cindy Mora, [address] [address], [place], [address]. tel:[phone] [facility], [address] [place], [place] [address], [id number], [place] tel:[phone] [facility] Compression of VeinEnd stage renal disease 2 Tasha Erazo. [facility] [place], [id number], [place]. tel:[phone] Referring Provider: Cindy Mora, Connie E. [facility] [address] [facility], [place], [address]. tel:[phone] [facility], [facility] [employer] [place], [id number], [place] tel:[phone] [facility] Compression of VeinEnd stage renal disease 2 Tasha Erazo. [address] [place], [place] [address], [place], [address], [place]. tel:[phone] Referring Provider: Cindy oMra, [address] [address], [place], [address]. tel:[phone] [facility], [address], [place], [place], [address], [place] tel:[phone] [facility] Compression of VeinEnd stage renal disease Jan- 2 Tasha Erazo. [address] [place], [place], [id number], [place]. tel:[phone] Referring Provider: Cindy Mora, [address] [facility] [address], [place], [address]. tel:[phone] [facility], [address], [place], [place], [address], [place] tel:[phone] [facility] No Information 2 Makris Jeff. [address] [place], [place] [address] [place], [id number], [place]. tel:[phone] [facility], [address] [place] [address], [id number], [place] tel:[phone] [facility] Compression of VeinEnd stage renal disease 1 Tasha Erazo. [address] [place] [address], [id number], [place]. tel:[phone] Referring Provider: Cindy Mora, [address] [facility] [address], [place], [address]. tel:[phone] [facility], [address] [place], [place] [address] [place], [address], [place] tel:[phone] [facility] Compression of VeinEnd stage renal disease 1 Gutierrez Mariano. [address] [place] [address], [id number], [place]. tel:[phone] Referring Provider: Demarcus Palacios, [address] , [place], [address] . tel:[phone] [facility], [address] [place], [place] [address], [address], [place] tel:[phone] [facility] Compression of VeinEnd stage renal disease 1 Makris Jeff. [address] [place] [address], [id number], [place]. tel:[phone] Referring Provider: Connie Crews E [facility], [place], [address] . tel:[phone] [facility], [address] [place], [place], [id number], tel:[phone] [facility] End stage renal disease 1 Makris Jeff. [address] [place], [place], [id number], [place]. tel:[phone] Referring Provider: Connie Crews E [facility], [place], [address] . tel:[phone] Office/outpa tient visit est [facility], [address] [place] [address], [id number], tel:[phone] [facility] 0 Tasha Erazo. [address] [place] [address], [id number], [place]. tel:[phone] Referring Provider: [place], [address] . tel:[phone] [facility], [address] [place] [address], [id number], tel:[phone] [facility] End stage renal disease 0 Gutierrez Mariano. [address] [place] [address], [id number], . tel:[phone] Referring Provider: Connie Crews E [facility], [place], [address] . tel:[phone] [facility], [address] [place] [address], [id number], tel:[phone] [facility] Stricture of ArteryEnd stage renal disease 0 Tasha Erazo. [address] [place] [address], [id number], . tel:[phone] Referring Provider: Demarcus Palacios, [address] [place], [address] . tel:[phone] [facility], [address] [place], [place], [id number], tel:[phone] [facility] Stricture of ArteryEnd stage renal disease 0 Makris Jeff. [address] [place] [address], [id number], [place]. tel:[phone] Referring Provider: Demarcus Palacios, [address] [place], [address] . tel:[phone] [facility], [address] [place] [address], [id number], tel:[phone] [facility] Stricture of ArteryEnd stage renal diseaseStrictur e of ArteryEnd stage renal disease 0 Tasha Erazo. [address] [place] [address], [id number], [place]. tel:[phone] Referring Provider: Cindy Mora, [address] [facility] [address], [address]. tel:[phone] [facility], [address] [place] [address], [id number], [place] tel:[phone] [facility] No Information 0 Makris Jeff. [address] [place] [address], [id number], [place]. tel:[phone] As per patient privacy policy some of the clinical information may not be visible. Family History Family Member Type Diagnosis Age At Onset Father Problem (finding) Renal disease Payers Payer name Insurance type Covered republican ID Authoriza tion(s) Medicare [place] [id number] [facility] [id number] Social History Type Description Quantity Date Captured Comments Sex Male Smoking Status No Information Gender Identity Male Chief Complaint And Reason For Visit No Information Reason For Referral Reason For Referral No Information Plan Of Treatment Date Type Action Status Appointment Harpreet Ponce// RFF *MCR* CO2* From Trans. Pt BOOKED Future Order: Radiology Order Up per Body Flouroscopy ([id number]), Ordered on: Ordered Future Order: Radiology Order Up per Body Flouroscopy ([id number]), Ordered on: Ordered Future Order: Radiology Order Up per Body Flouroscopy ([id number]), Ordered on: Ordered Future Order: Radiology Order Up per Body Flouroscopy ([id number]), Ordered on: Ordered Future Order: Radiology Order Up per Body Flouroscopy ([id number]), Ordered on: Ordered Future Order: Radiology Order Up per Body Flouroscopy ([id number]), Ordered on: Ordered Future Order: Radiology Order Up per Body Flouroscopy ([id number]), Ordered on: Ordered Future Order: Radiology Order Up per Body Flouroscopy ([id number]), Ordered on: Ordered Future Order: Radiology Order Up per Body Flouroscopy ([id number]), Ordered on: Ordered Future Order: Radiology Order Up per Body Flouroscopy ([id number]), Ordered on: Ordered Future Order: Radiology Order Up per Body Flouroscopy ([id number]), Ordered on: Ordered Future Order: Radiology Order Up per Body Flouroscopy ([id number]), Ordered on: Ordered Future Order: Radiology Order Up per Body Flouroscopy ([id number]), Ordered on: Ordered Future Order: Radiology Order Up per Body Flouroscopy ([id number]), Ordered on: Ordered Future Order: Radiology Order Up per Body Flouroscopy ([id number]), Ordered on: Ordered Future Order: Radiology Order Up per Body Flouroscopy ([id number]), Ordered on: Ordered Future Order: Radiology Order Up per Body Flouroscopy ([id number]), Ordered on: Ordered History Of Present Illness Encounter Date Complaint History Of Prese nt Illness No Information Functional Status Date Functional Assessmen t No Information Instructions Date Instruction Additional Infor mation No Information Assessments Type Assessment Date No Information Patient Care Teams Name Effective Dates (start - stop) Status Members No Information
--- OUTSIDE RECORDS SUMMARY | 2025-06-15 18:29 | XMS_ITS | Clinical Summary ---
Author Organization [facility] Address [address] [place] [address] Care Team Providers Care Film Splicer Name Role Phone Andrés Meeks MD Primary Care Provider [phone] Social History Tobacco Use Types Packs/Day Years [...] patient's age to complete this topic Insurance [facility] Care Teams Film Splicer Relationship Specialty Start Date End Date Andrés Meeks MD [address] [place] [address] [place] [address] PCP - General FAMILY PRACTICE 11/28/21
[2025-06-15 18:31] VITALS: BP 165/80; PULSE 93; RESP 20; TEMP 37.6; O2SAT 100
[2025-06-15 18:56] VITALS: BP 138/89; PULSE 97; RESP 20; O2SAT 98
[2025-06-15 18:58] LABS: Hematocrit 42.0 % (42.0-52.0); Hemoglobin 14.6 g/dL (14.0-18.0); Immature Granulocyte Percent A 0.4 % (0-0.5); Lymphocytes Absolute Auto 2.06 K/mm3 (0.9-3.2); Mean Corpuscular HGB Conc 34.8 g/dl (32-36); Mean Corpuscular Hemoglobin 34.8 pg (26-34); Mean Corpuscular Volume 100.0 fl (80-100); Nucleated Red Blood Cells Absolute Auto 0.000 K/mm3 (0.0-0.012); Nucleated Red Blood Cells Perc 0.0 % (0.0-0.2); Platelet Count Result 284 k/mm3 (150-375); Red Blood Count 4.20 M/mm3 (4.6-6.20); White Blood Count 18.8 K/mm3 (4.5-10.0)
[2025-06-15 19:15] LABS: INR 1.0; Partial Thromboplastin Time 26.6 Seconds (22.3-36.8); Prothrombin Time 13.6 Seconds (11.1-14.7)
[2025-06-15 19:19] LABS: Alanine Aminotransferase 42 U/L (6-50); Albumin Level 4.7 g/dL (3.5-5.1); Alkaline Phosphatase 50 U/L (38-126); Anion Gap 12 mmol/L (4-12); Aspartate Amino Transferase 44 U/L (17-59); Bilirubin,Total 0.5 mg/dL (0.2-1.3); Blood Urea Nitrogen 22 mg/dL (9-20); Calcium 10.1 mg/dL (8.4-10.2); Carbon Dioxide 22 mmol/L (22-30); Chloride 104 mmol/L (98-107); Estimated CRCL calculation 64 ml/min; Estimated Glomerular Filt Rate > 60; Glucose 117 mg/dL (65-110); Potassium 4.2 mmol/L (3.4-5.0); Sodium 138 mmol/L (137-145); Total Protein 8.6 g/dL (6.3-8.2)
--- NOTE | 2025-06-15 20:05 | ED_ITS ---
HPI - General Adult General Chief complaint: Extremity Problem,Nontraumatic Stated complaint: R foot pain Time Seen by Provider: 06/15/25 18:20 History of Present Illness HPI narrative: 70-year-old male presents to the emergency department for evaluation for right lower extremity erythema and edema. Patient did recede a superficial laceration to his leg working yd on and has leg began having erythema and swelling on Tuesday. Patient initially did present to Urgent Care for evaluation he is referred to the emergency department for labs and ultrasound to evaluate for DVT. Patient has no prior history of cellulitis. Patient is not diabetic. Patient does have history hypertension Related Data Home Medications ?Medication ?Instructions ?Recorded ?Confirmed ?Last Taken ?Type aspirin 81 mg capsule 81 mg PO DAILY 06/15/22 02/04/25 Unknown History hydrochlorothiazide 25 mg tablet 25 mg PO DAILY 07/29/22 02/04/25 Unknown History amlodipine 10 mg tablet 10 mg PO DAILY 05/06/23 02/04/25 Unknown History metoprolol succinate 100 mg 100 mg PO DAILY 05/06/23 02/04/25 Unknown History tablet,extended release 24 hr rosuvastatin 40 mg tablet 40 mg PO DAILY 05/06/23 02/04/25 Unknown History Allergies Allergy/AdvReac Type Severity Reaction Status Date / Time Sulfa (Sulfonamide AdvReac Unknown Nausea Verified 06/15/25 18:34 Antibiotics) Review of Systems 2 Review of Systems: All systems reviewed & are unremarkable except as noted in HPI and below PMFSH Past Medical History Medical History Nicotine dependence, cigarettes, in remission Atherosclerosis of aorta Occlusion and stenosis of bilateral carotid arteries Pure hypercholesterolemia, unspecified Atherosclerotic heart disease of lummi coronary artery without angina pectoris Essential (primary) hypertension Family History Family History Father Diabetes mellitus High cholesterol Cancer Sibling Diabetes mellitus Father Hypertension Mother High cholesterol Heart disease Hypertension Sibling High cholesterol Heart disease Hypertension Cancer Social History Social History Smoking packs per day: 1.5 Smoking cigarettes per day: 30.0 Years smoked: 52 Smoking pack-years: 78.00 Smoking status: Former smoker Tobacco type: cigars Second hand tobacco smoke exposure: No Smoking end date: 04/09/22 Alcohol intake: current Drinks per week: 10 Substance use: never Substance use type: does not use Do You Feel Safe in your Home?: Yes Lack of Transportation: No Lack of Food: Never True Current Housing: I Have Housing Concerned About Future Housing: No Difficulty Paying Gas/Electric Bills: No Difficulty Paying for Meds: No Currently Unemployed: No Education: High School Diploma/GED Difficulty w/ Childcare or Family Care: No Living arrangements: with family Occupation/Education: retired Gender identity (if verbalized by the patient): Male Sexual Orientation (if Verbalized by the Patient): Straight or Heterosexual Spiritual care concerns: No Exam 2 Narrative: APPEARANCE: Well appearing, no pain, no distress, well-nourished. HEAD: normocephalic, atraumatic. EYES: PERRLA/EOMI, conjunctivae clear. NOSE: Normal no drainage EARS:TMS clear with good light reflex. THROAT: Pharynx clear, no exudate. NECK: Supple. No adenopathy, no masses. RESPIRATORY: Airway patent, respirations nonlabored. Clear to auscultation bilaterally, no rales, rhonchi, wheezing. CARDIOVASCULAR: Regular rate and rhythm without murmurs rubs or gallops. ABDOMINAL: Soft, nontender, nondistended, normal bowel sounds MUSCULOSKELETAL: Superficial laceration healing on right phillips, cellulitis of right lower extremity involving the medial ankle and calf NEURO: Alert. Cranial nerves II through XII intact. Good gait. Good coordination SKIN: Cellulitis Course Vital Signs Vital signs: Vital Signs Temperature 100.2 F H 06/15/25 17:40 Pulse Rate 90 06/15/25 17:40 Respiratory Rate 20 06/15/25 17:40 Blood Pressure 161/66 H 06/15/25 17:40 Pulse Oximetry 99 06/15/25 17:40 Temperature 99.6 F 06/15/25 18:31 Pulse Rate 97 06/15/25 18:56 Respiratory Rate 20 06/15/25 18:56 Blood Pressure 138/89 06/15/25 18:56 Pulse Oximetry 98 06/15/25 18:56 Oxygen Delivery Room Air 06/15/25 18:31 Medical Decision Making [facility] Narrative Medical decision making narrative: 70-year-old male presents to the emergency department for evaluation for suspected cellulitis. Patient is afebrile but does have a leukocytosis of 18.8. Hemoglobin is 14.6. Patient has an INR 1.0. No acute abnormalities on the patient's CMP. Patient is tolerating p.o. and patient has not been on a outpatient antibiotics. I did discuss admission with both the patient family and he strongly preferred to be discharged home. Patient will be started on Rocephin the emergency department discharged home on Keflex. Patient will also be provided medications for pain control for home. At time of sign-out ultrasound ruling out DVT is pending. Strong concern for cellulitis. Ultrasound was negative for DVT. Patient was discharged home with detailed instructions on to return Differential Diagnosis Differential Diagnosis: Cellulitis, DVT Vital Signs Vital Signs: Vital Signs Temperature 100.2 F H 06/15/25 17:40 Pulse Rate 90 06/15/25 17:40 Respiratory Rate 20 06/15/25 17:40 Blood Pressure 161/66 H 06/15/25 17:40 Pulse Oximetry 99 06/15/25 17:40 Temperature 99.6 F 06/15/25 18:31 Pulse Rate 97 06/15/25 18:56 Respiratory Rate 20 06/15/25 18:56 Blood Pressure 138/89 06/15/25 18:56 Pulse Oximetry 98 06/15/25 18:56 Oxygen Delivery Room Air 06/15/25 18:31 Lab Data Lab results reviewed: Yes I reviewed the patient's lab results. 06/15/25 18:53 06/15/25 18:53 Labs: Lab Results 06/15/25 Range/Units 18:53 WBC 18.8 H (4.5-10.0) K/mm3 RBC 4.20 L (4.6-6.20) M/mm3 Hgb 14.6 (14.0-18.0) g/dL Hct 42.0 (42.0-52.0) % MCV 100.0 (80-100) fl MCH 34.8 H (26-34) pg MCHC 34.8 (32-36) g/dl RDW 12.6 (11.5-14.5) % Plt Count 284 (150-375) k/mm3 MPV 8.8 (7.4-10.4) fl Immature Gran % (Auto) 0.4 (0-0.5) % Neut % (Auto) 78.3 H (45.5-73.1) % Lymph % (Auto) 10.9 L (18.3-44.2) % [place] % (Auto) 10.0 H (2.6-8.5) % Eos % (Auto) 0.1 (0-4.4) % Baso % (Auto) 0.3 (0.2-1.2) % Lymph # (Auto) 2.06 (0.9-3.2) K/mm3 K[place]haw # (Auto) 1.9 H (0.1-0.6) K/mm3 Eos # (Auto) 0.0 (0-0.3) K/mm3 Baso # (Auto) 0.1 (0.0-0.1) K/mm3 Abs Immat Gran (auto) 0.07 H (0.00-0.031) K/mm3 Absolute Neuts (auto) 14.7 H (1.3-6.7) K/mm3 Absolute Nucleated RBC 0.000 (0.0-0.012) K/mm3 Nucleated RBC % 0.0 (0.0-0.2) % PT 13.6 (11.1-14.7) Seconds INR 1.0 APTT 26.6 (22.3-36.8) Seconds Sodium 138 (137-145) mmol/L Potassium 4.2 (3.4-5.0) mmol/L Chloride 104 (98-107) mmol/L Carbon Dioxide 22 (22-30) mmol/L Anion Gap 12 (4-12) mmol/L BUN 22 H (9-20) mg/dL Creatinine 1.11 (0.7-1.3) mg/dL Estim Creat Clear Calc 64 ml/min Estimated GFR > 60 (59 - ) Glucose 117 H (65-110) mg/dL Calcium 10.1 (8.4-10.2) mg/dL Total Bilirubin 0.5 (0.2-1.3) mg/dL AST 44 (17-59) U/L ALT 42 (6-50) U/L Alkaline Phosphatase 50 (38-126) U/L Total Protein 8.6 H (6.3-8.2) g/dL Albumin 4.7 (3.5-5.1) g/dL Imaging Data Radiologist's impression: Impressions Venous Doppler Study 06/15/25 20:23 Impression: No evidence of deep vein thrombosis involving the right lower extremity. Discharge Plan Discharge Clinical Impression: Cellulitis Patient Disposition: Home Condition: Stable Instructions: Antibiotic Form, Cellulitis (ED) Additional Instructions: Antibiotic as directed until completed. Have close follow-up with your primary care physician. Patient Language: Divehi Prescriptions: New hydrocodone-acetaminophen 5-325 mg tablet 1 tablet PO Q12H PRN (Reason: pain) Qty: 14 0RF cephalexin 500 mg capsule 500 mg PO Q8H 7 Days Qty: 21 0RF No Action triamcinolone acetonide 0.1 % cream 1 applic topical BID Qty: 30 0RF amlodipine 10 mg tablet 10 mg PO DAILY metoprolol succinate 100 mg tablet extended release 24 hr 100 mg PO DAILY rosuvastatin 40 mg tablet 40 mg PO DAILY aspirin 81 mg Capsule 81 mg PO DAILY hydrochlorothiazide 25 mg Tablet 25 mg PO DAILY ezetimibe 10 mg tablet 10 mg PO DAILY Qty: 90 1RF lisinopril 40 mg tablet See Rx Instructions .ROUTE .COMPLEX Qty: 100 2RF Dose Instruction: TAKE 1 TABLET BY MOUTH ONCE DAILY Rx Instructions: TAKE 1 TABLET BY MOUTH ONCE DAILY Follow-up/Referrals: Andrés Meeks MD [Primary Care Provider] -
[2025-06-15] MEDS: cefTRIAXone 1 GM in SODIUM CHLORIDE 0.9% IV 50 ML 100 ML IVPB (20:15)
[2025-06-15] MEDS: HYDROcodone/acetaminophen (*CRX) 5-325 MG TABLET 1 TAB PO (20:25)
== END 2025-06-15 20:45 | disposition home or self-care (01) ==
PROVIDERS: Emergency Provider Emergency Medicine; PCP Family Medicine
DX: L03.115 Cellulitis of right lower limb (principal); I70.0 Atherosclerosis of aorta; I65.23 Occlusion and stenosis of bilateral carotid arteries; I25.10 Atherosclerotic heart disease of native coronary artery without angina pectoris; I10 Essential (primary) hypertension; E78.00 Pure hypercholesterolemia, unspecified; Z87.891 Personal history of nicotine dependence; Z79.82 Long term (current) use of aspirin; Z79.899 Other long term (current) drug therapy
CPT/HCPCS: 36415; 80053; 85025; 85610; 85730; 93971; 96365; 99284; A9270; J0696

== ENCOUNTER 2025-08-08 01:05 | Day surgery (SDC) | payer MEDICARE, SELFPAY ==
[2025-08-01 10:05] VITALS: BMI 33.0
--- OUTSIDE RECORDS SUMMARY | 2025-08-08 01:07 | XMS_ITS | Encounter Summary ---
Author Organization [facility] Address 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
--- OUTSIDE RECORDS SUMMARY | 2025-08-08 01:07 | XMS_ITS | Clinical Summary ---
Author Organization [facility] Address [address] [place] [id number] Care Team Providers Care Hosiery Operator Name Role Phone Andrés Meeks MD Primary Care Provider [phone] Social History Tobacco Use Types Packs/Day Years [...] Wellness Visit 2018 COVID-19 Vaccine (4 - 2024-2 6 season) 2025 09/30/2021, 02/20/2021, 01/23/2021 RSV Immunization or 60+ [...] patient's age to complete this topic Insurance [facility] Care Teams Hosiery Operator Relationship Specialty Start Date End Date Andrés Meeks MD [address] [place] [address] [place] [id number] PCP - General FAMILY PRACTICE 11/28/21
--- OUTSIDE RECORDS SUMMARY | 2025-08-08 01:07 | XMS_ITS | Clinical Summary ---
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
--- OUTSIDE RECORDS SUMMARY | 2025-08-08 01:07 | XMS_ITS | Encounter Summary ---
Author Organization [facility] Address [address] [place] [address] Care Team Providers Care Architectural Manager Name Role Phone Unavailable Primary Care Provider Unavailabl e Encounter Details Date Type Department Care Team (Latest Contact Info) Description 09/09/2003 Outpatient Historical HIS CARD RECONCILEMENT CLERK Luiz Workman MD [address] [place] [address] 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
[2025-08-08 11:12] VITALS: BP 137/71; PULSE 91; RESP 18; TEMP 36.2; O2SAT 97; BMI 32.1
--- NOTE | 2025-08-08 11:20 | WPDANESEPPF ---
Anes - Initial Pre Proc Eval Procedure: Operation Date: 08/08/25 13:00 Proposed Procedures p Diagnostic Colonoscopy - Toni Mata MD Date/Time: 08/08/25 11:20 Surgeon: Toni Mata MD Pre Op Diagnosis: Other fecal abnormalities Patient Data Age: 70 Gender: M Height: 1.78 m Weight: 101.7 kg Last Vital Signs Temp 36.2 C L 08/08/25 11:12 Pulse 91 08/08/25 11:12 Resp 18 08/08/25 11:12 BP 137/71 08/08/25 11:12 Pulse Ox 97 08/08/25 11:12 O2 Del Method Room Air 08/08/25 11:12 Allergies Allergy/AdvReac Type Severity Reaction Status Date / Time Sulfa (Sulfonamide AdvReac Unknown Nausea Verified 08/08/25 11:11 Antibiotics) Home Medications ?Medication ?Instructions ?Recorded ?Confirmed ?Type aspirin 81 mg capsule 81 mg PO DAILY 06/15/22 08/08/25 History hydrochlorothiazide 25 mg tablet 25 mg PO DAILY 07/29/22 08/08/25 History amlodipine 10 mg tablet 10 mg PO DAILY 05/06/23 08/08/25 History metoprolol succinate 100 mg 100 mg PO DAILY 05/06/23 08/08/25 History tablet,extended release 24 hr rosuvastatin 40 mg tablet 40 mg PO DAILY 05/06/23 08/08/25 History lisinopril 40 mg tablet See Rx Instructions .Route 04/22/25 08/08/25 Rx .COMPLEX #100 tabs ezetimibe 10 mg tablet 10 mg PO DAILY #100 tabs 06/24/25 08/08/25 Rx triamcinolone acetonide 0.1 % 1 applic topical BID PRN rash 08/01/25 08/07/25 History topical cream diphenhydramine 25 2 tablet PO QHS PRN sleep 08/07/25 08/08/25 History mg-acetaminophen 500 mg tablet (Tylenol PM Extra Strength) Patient hx anesthesia problems: none Family hx anesthesia problems: none Results Review: All pre-operative results and documents have been reviewed as part of the pre-operative evaluation. [facility] Past Medical History Medical History (Updated 08/07/25 @ 14:32 by Itz Mukherjee DO) CHF (congestive heart failure) PVD (peripheral vascular disease) Nicotine dependence, cigarettes, in remission Atherosclerosis of aorta Occlusion and stenosis of bilateral carotid arteries Pure hypercholesterolemia, unspecified Atherosclerotic heart disease of [place] coronary artery without angina pectoris Essential (primary) hypertension Surgical History Surgical History (Updated 08/07/25 @ 14:32 by Itz Mukherjee DO) Hx of CABG 2021 Family History Family History Father Diabetes mellitus High cholesterol Cancer Sibling Diabetes mellitus Father Hypertension Mother High cholesterol Heart disease Hypertension Sibling High cholesterol Heart disease Hypertension Cancer Social History Social History Smoking packs per day: 1.5 Smoking cigarettes per day: 30.0 Years smoked: 52 Smoking pack-years: 78.00 Smoking status: Former smoker Tobacco type: cigars Second hand tobacco smoke exposure: No Smoking end date: 04/09/22 Alcohol intake: current Drinks per week: 10 Substance use: never Substance use type: does not use Do You Feel Safe in your Home?: Yes Lack of Transportation: No Lack of Food: Never True Current Housing: I Have Housing Concerned About Future Housing: No Difficulty Paying Gas/Electric Bills: No Difficulty Paying for Meds: No Currently Unemployed: No Education: High School Diploma/GED Difficulty w/ Childcare or Family Care: No Living arrangements: with family Additional living arrangements comments: with sp Occupation/Education: retired Gender identity (if verbalized by the patient): Male Sexual Orientation (if Verbalized by the Patient): Straight or Heterosexual Spiritual care concerns: No Anes - Eval Final PreProcedure Day of Procedure 08/08/25 11:20 Patient weight: obese Heart: regular rate and rhythm Lungs: clear to auscultation Airway: Mallampati scale class III Neurological: alert and oriented Last oral intake: >/= 8 hours ASA classification: IV Emergent: no Anesthetic plan: proceed Anesthesia type and monitoring: general GIVS and standard monitoring Results Review: All pre-operative results and documents have been reviewed as part of the pre-operative evaluation. Informed Consent: The patient's anesthetic plan and its attendant risks and benefits were discussed with the patient/family/POA. Questions were solicited and answers provided to the satisfaction of the patient/family/POA.
[2025-08-08] MEDS: LACTATED RINGERS 1,000 ML 150 ML IV CONT (11:27)
--- NOTE | 2025-08-08 12:24 | PM.HPGS ---
History of Present Illness History of Present Illness Consent: Risks, benefits, and alternatives have been discussed and questions answered. Patient agrees to proceed with procedure. Chief complaint: Other fecal abnormalities Narrative: Harpreet Harris is a 70 year old male here for first colonoscopy, + cologuard Review of Systems Review of Systems: All systems reviewed & are unremarkable except as noted in HPI and below PMFSH Past Medical History Medical History (Updated 08/08/25 @ 12:28 by Toni Mata MD) Positive colorectal cancer screening using Cologuard test CHF (congestive heart failure) PVD (peripheral vascular disease) Nicotine dependence, cigarettes, in remission Atherosclerosis of aorta Occlusion and stenosis of bilateral carotid arteries Pure hypercholesterolemia, unspecified Atherosclerotic heart disease of [place] coronary artery without angina pectoris Essential (primary) hypertension Surgical History Surgical History (Updated 08/07/25 @ 14:32 by Itz Mukherjee DO) Hx of CABG 2021 Family History Family History Father Diabetes mellitus High cholesterol Cancer Sibling Diabetes mellitus Father Hypertension Mother High cholesterol Heart disease Hypertension Sibling High cholesterol Heart disease Hypertension Cancer Social History Social History Smoking packs per day: 1.5 Smoking cigarettes per day: 30.0 Years smoked: 52 Smoking pack-years: 78.00 Smoking status: Former smoker Tobacco type: cigars Second hand tobacco smoke exposure: No Smoking end date: 04/09/22 Alcohol intake: current Drinks per week: 10 Substance use: never Substance use type: does not use Do You Feel Safe in your Home?: Yes Lack of Transportation: No Lack of Food: Never True Current Housing: I Have Housing Concerned About Future Housing: No Difficulty Paying Gas/Electric Bills: No Difficulty Paying for Meds: No Currently Unemployed: No Education: High School Diploma/GED Difficulty w/ Childcare or Family Care: No Living arrangements: with family Additional living arrangements comments: with sp Occupation/Education: retired Gender identity (if verbalized by the patient): Male Sexual Orientation (if Verbalized by the Patient): Straight or Heterosexual Spiritual care concerns: No Meds Home Medications and Allergies Home Medications ?Medication ?Instructions ?Recorded ?Confirmed ?Type aspirin 81 mg capsule 81 mg PO DAILY 06/15/22 08/08/25 History hydrochlorothiazide 25 mg tablet 25 mg PO DAILY 07/29/22 08/08/25 History amlodipine 10 mg tablet 10 mg PO DAILY 05/06/23 08/08/25 History metoprolol succinate 100 mg 100 mg PO DAILY 05/06/23 08/08/25 History tablet,extended release 24 hr rosuvastatin 40 mg tablet 40 mg PO DAILY 05/06/23 08/08/25 History lisinopril 40 mg tablet See Rx Instructions .Route 04/22/25 08/08/25 Rx .COMPLEX #100 tabs ezetimibe 10 mg tablet 10 mg PO DAILY #100 tabs 06/24/25 08/08/25 Rx triamcinolone acetonide 0.1 % 1 applic topical BID PRN rash 08/01/25 08/07/25 History topical cream diphenhydramine 25 2 tablet PO QHS PRN sleep 08/07/25 08/08/25 History mg-acetaminophen 500 mg tablet (Tylenol PM Extra Strength) Allergies Allergy/AdvReac Type Severity Reaction Status Date / Time Sulfa (Sulfonamide AdvReac Unknown Nausea Verified 08/08/25 11:11 Antibiotics) Vital Signs Vital Signs - 24 hr 08/08/25 11:12 Temperature 97.1 F L Pulse Rate 91 Respiratory Rate 18 Blood Pressure 137/71 Pulse Oximetry 97 Oxygen Delivery Room Air Exam Const: General: comfortable and no acute distress HENMT: Face/Nose/Sinus: Normal nares present Eyes: General: appearance normal, both eyes and all related structures Neck: Neck: no JVD Resp: Auscultation: clear to auscultation bilaterally Cardio: Rate: regular rate Rhythm: regular rhythm GI: Inspection: non-distended GI Palp: Yes Soft to palpation Skin: General skin exam: normal color Neuro: Speech: normal speech Extrem: General: normal to inspection Psych: Mental Status: mental status grossly normal Assessment and Plan Assessment and plan (1) Positive colorectal cancer screening using Cologuard test: Code(s): R19.5 - Other fecal abnormalities Status: Acute Assessment and Plan: colonoscopy
--- NOTE | 2025-08-08 12:43 | S_PTH ---
PATIENT: Harpreet Harris LOC: [facility]#:[id number] AGE/SX: 70/M ROOM: RE08/08/[address]: Toni Mata MD : 1955 BED: DIS: 08/08/2025 SPEC #: [id number] RECD: 08/08/25 13:47 STATUS: JESSICA CHOUDHARY #: [id number] NEVAEH: 08/08/25 12:[address]: Toni Mtaa DEPT: [facility] Surgical RECD BY: Ileana Sanchez ENTERED: 08/08/25 13:48 SP TYPE: Surgical OTHR DR: Andrés Meeks MD Tissues: A - Colon Polypectomy B - Colon Polypectomy C - Colon Polypectomy Procedures: Hematoxylin and Eosin Stain Gross and Microscopic Level 4
[2025-08-08 12:45] VITALS: BP 107/60; PULSE 78; RESP 20; O2SAT 99
[2025-08-08 12:55] VITALS: BP 114/65; PULSE 69; RESP 24; O2SAT 99
[2025-08-08 13:05] VITALS: BP 115/75; PULSE 65; RESP 21; O2SAT 99
== END 2025-08-08 13:15 | disposition home or self-care (01) ==
PROVIDERS: PCP Family Medicine; Referring Provider Family Medicine; Visit Provider Internal Medicine Gastroenterology
PROC: 0DJD8ZZ Inspection of Lower Intestinal Tract, Via Natural or Artificial Opening Endoscopic (ICD-10-PCS; CPT 45378; principal; 2025-08-08 13:00)
DX: D12.2 Benign neoplasm of ascending colon (principal); D12.3 Benign neoplasm of transverse colon; D12.4 Benign neoplasm of descending colon; K64.8 Other hemorrhoids; K57.30 Diverticulosis of large intestine without perforation or abscess without bleeding; I11.0 Hypertensive heart disease with heart failure; I50.9 Heart failure, unspecified; I73.9 Peripheral vascular disease, unspecified; I70.0 Atherosclerosis of aorta; E78.00 Pure hypercholesterolemia, unspecified; I25.10 Atherosclerotic heart disease of native coronary artery without angina pectoris; E66.9 Obesity, unspecified; Z68.32 Body mass index [BMI] 32.0-32.9, adult; Z79.82 Long term (current) use of aspirin; Z95.1 Presence of aortocoronary bypass graft; Z87.891 Personal history of nicotine dependence; Z86.79 Personal history of other diseases of the circulatory system; Z80.9 Family history of malignant neoplasm, unspecified; Z82.49 Family history of ischemic heart disease and other diseases of the circulatory system
CPT/HCPCS: 45385; 88305; J2003; J2704; J7120